=== PATIENT | female | born 1955 | race African-American/Black ===

== ENCOUNTER → 2016-07-21 | Outpatient (CLI) | payer OTHER | LOC: RAD 08:27 | PROVIDERS: ATTEND Physician Assistant | DX: R05 Cough (principal); J44.9 Chronic obstructive pulmonary disease, unspecified; R91.1 Solitary pulmonary nodule; M41.9 Scoliosis, unspecified | CPT/HCPCS: 71260; 82565 ==

== ENCOUNTER → 2016-10-14 | Outpatient (CLI) | payer OTHER ==
--- NOTE | 2016-10-15 12:03 | HISTORY AND PHYSICAL E ---
History and Physical NAME: AMELIA AUSTIN : 1955 AGE: 61Y ADMITTED: ROOM: REFERRING PHYSICIAN: Dr. Brennan. HISTORY OF PRESENT ILLNESS: The patient is known to me. I saw her June 2015, colonoscopy showing polyps in the distal transverse colon and external hemorrhoids. The patient did have the following: The patient had difficult to intubate sigmoid diverticulosis, 3 mm poly distal transverse colon. Cecum and transverse ascending are normal. The followup of the transverse colon came back adenoma polyp. At this time the patient follow up 1 year colonoscopy regarding sessile polyp transverse colon. REVIEW OF SYSTEMS: CARDIAC: Hypertension. ENDOCRINE: Negative. GASTROINTESTINAL: Polyps. FAMILY HISTORY: Father had CA prostate. Mom is alive. PHYSICAL EXAMINATION: VITAL SIGNS: Blood pressure 100/70, pulse 80, respirations 20, temperature is 98. HEAD, EYES, EARS, NOSE AND THROAT: Normal. ABDOMEN: Soft. NEUROLOGIC EXAM: Negative. MEDICATIONS: 1. Hydrochlorothiazide. 2. Vitamins. CONCLUSION: 1. Hypertension. 2. Colorectal polyps. 3. Difficult colonoscopy. IMPRESSION: 1. Colon screening. 2. History of adenoma polyps. PLAN: 1. Baseline potassium, consider potassium by mouth 2 days prior colonoscopy. The patient is on hydrochlorothiazide. 2. Follow up colonoscopy regarding colon polyps. DICTATING PHYSICIAN: JERO LOPEZ M.D. [id number] PHY#: [id number] ID: [id number] JOB#: [id number] ACCT: [id number] cc:JERO LOPEZ M.D., SWETANG M.D. >
== END ==
LOC: OD 14:42
PROVIDERS: ATTEND Specialist
DX: E87.6 Hypokalemia (principal)
CPT/HCPCS: 36415; 84132

== ENCOUNTER 2016-10-27 07:23 | Day surgery (SDC) | payer OTHER ==
[~2016-10-27 07:23] MED LIST: LIDOCAINE 2% JELLY 30 ML TUBE ONE; ONDANSETRON HCL INJ/PF 4 MG/2 ML SDV ONE
[2016-10-27] MEDS ORDERED: GLYCOPYRROLATE INJ 0.4 MG/2 ML VIAL ONE (07:24)
[2016-10-27] MEDS ORDERED: NALOXONE HCL INJ/PF 0.4 MG/1 ML SDV ONE (07:24)
[2016-10-27] MEDS ORDERED: FENTANYL CITRATE INJ/PF 100 MCG/2 ML AMPUL ONE (07:25)
[2016-10-27] MEDS ORDERED: FLUMAZENIL INJ 0.5 MG/5 ML VIAL IV ONE (07:25)
[2016-10-27] MEDS ORDERED: GLUCAGON,HUMAN RECOMB 1 MG INJ ONE (07:25)
[2016-10-27] MEDS ORDERED: EPINEPHRINE INJ 1 MG/10 ML DISP.SYRIN ONE (07:25)
[2016-10-27] MEDS: MIDAZOLAM 2 MG/2 ML INJ ONE ×2 (08:11→08:15)
[2016-10-27 09:44] VITALS: BP 146/89
--- NOTE | 2016-10-27 10:27 | HISTORY AND PHYSICAL E ---
History and Physical NAME: AMELIA AUSTIN : 1955 AGE: 61Y ADMITTED: 10/27/2016 ROOM: CHIEF COMPLAINT: Patient for colon screening. HISTORY: A 61-year-old female presented for colon screening. REVIEW OF SYSTEMS: Patient does have a history of asthma. She takes Advair. She has allergy. She takes Zyrtec. Blood pressure, hypertension, hydrochlorothiazide. She is on vitamin D. ALLERGIES: No known allergies. FAMILY HISTORY: Patient does have family history of polyps. SOCIAL HISTORY: Patient does not smoke, does not drink. PHYSICAL EXAMINATION: GENERAL: Pleasant, alert, oriented. VITAL SIGNS: Temp is 98, blood pressure 140/90, pulse 60, respirations 20. HEENT: Normal. ABDOMEN: Soft. NEUROLOGIC: Negative. EXTREMITIES: No edema. CONCLUSION: Colon screening. PLAN: Colonoscopy. DICTATING PHYSICIAN: JERO LOPEZ M.D. [id number] PHY#: [id number] ID: [id number] JOB#: [id number] ACCT: [id number] cc:[facility], JERO LOPEZ M.D. >
[2016-10-27 10:29] LABS: ABSOLUTE EOSINOPHILS # (AUTO) 0.1 10^3/uL (0.0-0.6); ABSOLUTE LYMPHOCYTES (AUTO) 1.6 10^3/uL (0.5-4.7); ABSOLUTE MONOCYTES (AUTO) 0.5 10^3/uL (0.1-1.4); ABSOLUTE NEUT (AUTO) 5.6 10^3/uL (1.7-8.2); BASOPHILS % (AUTO) 0.6 % (0-2); HEMOGLOBIN 12.3 g/dL (12.0-15.5); HGB HCT DIFFERENCE -1.1; LYMPHOCYTES % (AUTO) 20.4 % (13-45); MEAN CORPUSCULAR HEMOGLOBIN 30.6 pg (27.0-33.4); MEAN CORPUSCULAR HGB CONC 32.3 g/dL (32.0-36.0); MEAN CORPUSCULAR VOLUME 95 fl (80-97); RED BLOOD COUNT 4.01 10^6/uL (3.72-5.28); RED CELL DISTRIBUTION WIDTH 14.9 % (11.5-14.0); WHITE BLOOD COUNT 7.7 10^3/uL (4.0-10.5)
--- NOTE | 2016-10-27 10:34 | OPERATIVE REPORT E ---
Operative Report NAME: AMELIA AUSTIN : 1955 AGE: 61Y DATE OF SURGERY: 10/27/2016 ROOM: PREOPERATIVE DIAGNOSIS: Colon screening. POSTOPERATIVE DIAGNOSES: 1. Mild diverticulosis, sigmoid. 2. One isolated diverticulum in the cecum-ascending colon junction. 3. A 3-mm polyp in the mid ascending colon. PROCEDURE: Colonoscopy. SURGEON: JERO LOPEZ M.D. SEDATION/ANESTHESIA: The patient was given Versed 3 mg and Fentanyl 100 mcg. TISSUE REMOVED OR ALTERED: Biopsy, 3-mm polyp, mid ascending colon. NOTE: Colonoscopy today was difficult. At the beginning there was difficulty intubating the sigmoid colon. The patient has a sharp curve between her rectum and sigmoid junction, difficult. With assistance from nurses with manipulation, we were able to intubate the sigmoid with some difficulties. PROCEDURE: Rectal exam normal. Rectosigmoid sharp curve sigmoid-descending junction, difficult to intubate and successful after 2-3 trials. Descending colon shows occasional diverticulosis. Transverse colon normal. Ascending colon shows a 3-mm polyp, biopsy obtained. The cecum-ascending colon shows large diverticulum, 1 isolated diverticulum, cecum-ascending colon junction. Scope withdrawn cecum, ascending. Again, 1 diverticulum isolated of about 1 cm in size, cecum-ascending junction, 3-mm polyp removed by biopsy. Transverse colon normal. Descending colon normal. Sigmoid mild diverticulosis. Rectum normal. PLAN: 1. Awaiting biopsy results. 2. Full liquid diet today. 3. Baseline CBC and CEA. 4. Patient needs follow-up colonoscopy after 1 year for further evaluation of her ascending colon. She needs to be done in the OR with deep sedation. Please pay attention to the difficult intubation of rectosigmoid junction. DICTATING PHYSICIAN: JERO LOPEZ M.D. [id number] PHY#: [id number] ID: [id number] JOB#: [id number] ACCT: [id number] cc:[facility], JERO LOPEZ M.D. >
--- NOTE | 2016-10-27 10:34 | DISCHARGE SUMMARY E ---
Discharge Summary NAME: AMELIA AUSTIN : 1955 AGE: 61Y ADMITTED: 10/27/2016 DISCHARGED: 10/27/2016 FINAL DIAGNOSES: 1. A 3-mm polyp at ascending colon. 2. Isolated diverticulum, cecum-ascending junction. 3. Difficult colonoscopy intubation in the rectosigmoid-sigmoid descending junction. RECOMMENDATIONS/DISCHARGE PLAN: 1. Full liquids. 2. Baseline CBC and CEA. 3. Hold aspirin and nonsteroidals for 5 days. 4. Awaiting biopsy results. 5. Consider follow-up colonoscopy in 1 year in the OR with anesthesia standby, difficult rectosigmoid intubation. DICTATING PHYSICIAN: JERO LOPEZ M.D. [id number] PHY#: [id number] ID: [id number] JOB#: [id number] ACCT: [id number] cc:JERO LOPEZ M.D. >
[2016-10-27 10:45] LABS: ALANINE AMINOTRANSFERASE 28 U/L (9-52); ALKALINE PHOSPHATASE 79 U/L (38-126); ANION GAP 14 (5-19); ASPARTATE AMINO TRANSFERASE 20 U/L (14-36); BILIRUBIN,DIRECT 0.2 mg/dL (0.0-0.4); BILIRUBIN,TOTAL 1.1 mg/dL (0.2-1.3); BLOOD UREA NITROGEN 8 mg/dL (7-20); CALCIUM 9.4 mg/dL (8.4-10.2); CARBON DIOXIDE 24 mmol/L (22-30); CHLORIDE 102 mmol/L (98-107); CREATININE RESULT 0.74 mg/dL (0.52-1.25); GLUCOSE 154 mg/dL (75-110); POTASSIUM 3.7 mmol/L (3.6-5.0); SODIUM 140.4 mmol/L (137-145); TOTAL PROTEIN 7.1 g/dL (6.3-8.2)
[2016-10-27 11:15] LABS: CARCINOEMBRYONIC ANTIGEN 2.9 ng/mL (<3.0)
== END 2016-10-27 09:55 | disposition home or self-care (01) ==
LOC: END 07:23
PROVIDERS: ATTEND Specialist
PROC: 0DBK8ZX Excision of Ascending Colon, Via Natural or Artificial Opening Endoscopic, Diagnostic (ICD-10-PCS; principal; 2016-10-27 08:00)
DX: Z12.11 Encounter for screening for malignant neoplasm of colon (principal); D12.2 Benign neoplasm of ascending colon; K57.30 Diverticulosis of large intestine without perforation or abscess without bleeding; J45.909 Unspecified asthma, uncomplicated; I10 Essential (primary) hypertension; Z79.899 Other long term (current) drug therapy; Z79.51 Long term (current) use of inhaled steroids
CPT/HCPCS: 45380; 36415; 82378; 85025; 80053; 88305 ×2; J2250; J3010; J1610; J0171; J2310; J2405; J3490

== ENCOUNTER → 2017-08-03 | Outpatient (CLI) | payer OTHER ==
--- NOTE | 2017-08-03 14:46 | RADIOLOGY REPORT (SQ) ---
EXAM DESCRIPTION: CT CHEST WITH COMPLETED DATE/TIME: 08/03/2017 2:28 pm REASON FOR STUDY: R91.1 SOLITARY PULMONARY NODULE R10.30 LOWER ABDOMINAL PAIN, UNSPECIFIED R10.30 L OWER ABDOMINAL PAIN, UNSPECIFIED N95.0 POSTMENOPAUSAL BLEEDING R91.1 SOLITARY PULMONARY NODULE COMPARISON: July 2016 TECHNIQUE: CT scan of the chest performed using helical scanning technique with dynamic intravenous contrast injection. Images reviewed with lung, soft tissue and bone windows. Reconstructed coronal and sagittal MPR images reviewed. All images stored on PACS. All CT scanners at this facility use dose modulation, iterative reconstruction, and/or weight based d osing when appropriate to reduce radiation dose to as low as reasonably achievable (ALARA). [facility]: Dose Right [facility]: CareDose [facility]: Dose Right [facility]: Teradose 4D [facility]: [employer] CONTRAST TYPE AND DOSE: 54.3 mL Isovue 370 RENAL FUNCTION: Creatinine 0.8 RADIATION DOSE: . LIMITATIONS: None. FINDINGS: LUNGS AND PLEURA: The previously described 4 mm nodule in the right middle lobe appears st able. No other pulmonary nodules are identified. There is some minimal increased density in the lef t lower lobe which could represent atelectatic changes or minimal infiltrate. Remaining lung frye are clear. No pleural effusions are identified. The previously described emphysematous changes are again identified. HILAR AND MEDIASTINAL STRUCTURES: No identified masses or abnormal nodes. HEART AND VASCULAR STRUCTURES: No aneurysm or dissection. No central pulmonary emboli. No pericardi al effusion. HARDWARE: None in the chest. UPPER ABDOMEN: See results under abdominal CT scan THYROID AND OTHER SOFT TISSUES: No masses. No adenopathy. BONES: The previously described thoracolumbar scoliosis is again identified. OTHER: No other significant findings IMPRESSION: The previously described 4 mm nodule in right middle lobe appears stable. No other pulm onary nodules are identified. There is some minimal increased density in the left lower lobe which c ould represent atelectatic changes or minimal infiltrate. Remaining lung frye are clear. Other fi ndings as noted above TECHNICAL DOCUMENTATION: JOB ID: [id number] Quality ID # [id number]: Final reports with documentation of one or more dose reduction techniques (e.g., Au tomated exposure control, adjustment of the mA and/or kV according to patient size, use of iterative reconstruction technique) 2010 [employer]- All Rights Reserved Reading location - IP/workstation name: [email or web address]
--- NOTE | 2017-08-03 14:51 | RADIOLOGY REPORT (SQ) ---
EXAM DESCRIPTION: CT ABD/PELVIS WITH IV ONLY COMPLETED DATE/TIME: 08/03/2017 2:29 pm REASON FOR STUDY: R91.1 R10.30 LOWER ABDOMINAL PAIN, UNSPECIFIED N95.0 POSTMENOPAUSAL BLEEDING R91 .1 SOLITARY PULMONARY NODULE COMPARISON: None. TECHNIQUE: CT scan of the abdomen and pelvis performed using helical scanning technique with dynamic intravenous contrast injection. No oral contrast. Images reviewed with lung, soft tissue, and bone windows. Reconstructed coronal and sagittal MPR images reviewed. Delayed images for evaluation of the urinary system also acquired. All images stored on PACS. All CT scanners at this facility use dose modulation, iterative reconstruction, and/or weight based d osing when appropriate to reduce radiation dose to as low as reasonably achievable (ALARA). [facility]: Dose Right [facility]: CareDose [facility]: Dose Right [facility]: Teradose 4D [facility]: evly CONTRAST TYPE AND DOSE: contrast/concentration: Isovue 370.00 mg/ml; Total Contrast Delivered: 54.0 ml; Total Saline Delivered: 65.0 ml RENAL FUNCTION: Creatinine 0.8 RADIATION DOSE: CT Rad equipment meets quality standard of care and radiation dose reduction techniq ues were employed. CTDIvol: 4.4 - 4.5 mGy. DLP: 556 mGy-cm.. LIMITATIONS: None. FINDINGS: LOWER CHEST: See results under chest CT scan LIVER: Normal size. No masses. No dilated ducts. SPLEEN: Normal size. No focal lesions. PANCREAS: No masses. No significant calcifications. No adjacent inflammation or peripancreatic fluid collections. Pancreatic duct not dilated. GALLBLADDER: No identified stones by CT criteria. No inflammatory changes to suggest cholecystitis. ADRENAL GLANDS: No significant masses or asymmetry. RIGHT KIDNEY AND URETER: No solid masses. No significant calcifications. No hydronephrosis or hyd roureter. LEFT KIDNEY AND URETER: No solid masses. No significant calcifications. No hydronephrosis or hydr oureter. AORTA AND VESSELS: No aneurysm. No dissection. There is some ectasia of the abdominal aorta and patti c vessels with vascular calcifications. Renal arteries, SMA, celiac without stenosis. RETROPERITONEUM: No retroperitoneal adenopathy, hemorrhage or masses. BOWEL AND PERITONEAL CAVITY: No masses or inflammatory changes. No free fluid or peritoneal masses. A moderate amount of fecal material is identified throughout the colon APPENDIX: Normal. PELVIS: No mass. No free fluid. Normal bladder. ABDOMINAL WALL: No masses. No hernias. BONES: No significant or acute findings. OTHER: No other significant finding. IMPRESSION: NO SIGNIFICANT OR ACUTE FINDING IN THE ABDOMEN OR PELVIS ON CT SCAN WITH IV CONTRAST. TECHNICAL DOCUMENTATION: JOB ID: [id number] Quality ID # [id number]: Final reports with documentation of one or more dose reduction techniques (e.g., Au tomated exposure control, adjustment of the mA and/or kV according to patient size, use of iterative reconstruction technique) 2010 [employer]- All Rights Reserved Reading location - IP/workstation name: [facility]
== END ==
LOC: RAD 13:54
PROVIDERS: ATTEND Family Medicine
DX: R91.1 Solitary pulmonary nodule (principal); N95.0 Postmenopausal bleeding; R10.30 Lower abdominal pain, unspecified
CPT/HCPCS: 71260; 74177; 82565

== ENCOUNTER → 2017-08-09 | Outpatient (CLI) | payer OTHER ==
--- NOTE | 2017-08-09 09:33 | WOMENS IMAGING REPORT ---
EXAM DESCRIPTION: BILAT SCREENING MAMMO W/CAD COMPLETED DATE/TIME: 08/09/2017 9:21 am REASON FOR STUDY: SCREENING MAMMO Z12.31 ENCNTR SCREEN MAMMOGRAM FOR MALIGNANT NEOPLASM OF [place] COMPARISON: Multiple since 2009 TECHNIQUE: Standard craniocaudal and mediolateral oblique views of each breast recorded using digita l acquisition. LIMITATIONS: None. FINDINGS: Findings present which are benign by mammographic criteria. No suspicious masses, calcifi cations or architectural distortion. Pertinent benign findings: Benign bilateral breast parenchymal calcifications Read with the assistance of CAD. .[facility] Cenova Version 1.3 .[facility] - R2 Cenova Version 1.3 .[facility] - R2 Cenova Version 2.4 .[facility] - R2 Cenova Version 2.4 .[facility] - R2 Last Repairer Version 9.2 Benign mammographic findings may include one or more of the following: Smooth masses, popcorn/rim/co arse calcifications, asymmetries, post-procedure changes, and lesions with long-standing stability. IMPRESSION: BENIGN MAMMOGRAPHIC FINDINGS. BIRADS 2 BREAST DENSITY: b. There are scattered areas of fibroglandular density. BIRAD: 2 BENIGN FINDING(S) RECOMMENDATION: ROUTINE SCREENING Please continue yearly bilateral screening mammography/tomosynthesis in July 2018 COMMENT: The patient has been notified of the results by letter per [place] requirements. Additional no tification policies are in place for contacting patient with suspicious or incomplete findings. Quality ID #[id number]: The [employer] recommends an annual screening mammogram for women aged 40 years or over. This facility utilizes a reminder system to ensure that all patients receive reminder letters, and/or direct phone calls for appointments. This includes reminders for routine scr eening mammograms, diagnostic mammograms, or other Breast Imaging Interventions when appropriate. Th is patient will be placed in the appropriate reminder system. The [employer] (ACR) has developed recommendations for screening MRI of the breast s in certain patient populations, to be used in conjunction with mammography. Breast MRI surveillanc e may be appropriate for women with more than 20% lifetime risk of developing breast cancer as deter mined by genetic testing, significant family history of the disease, or history of mantle radiation f or Hodgkins Disease. ACR Practice Guidelines 2008. TECHNICAL DOCUMENTATION: FINDING NUMBER: (1) ASSESSMENT: (1) JOB ID: [id number] [employer] All Rights Reserved Reading location - IP/workstation name: [facility] [email or web address]
== END ==
LOC: WI 08:56
PROVIDERS: ATTEND Family Medicine
DX: Z12.31 Encounter for screening mammogram for malignant neoplasm of breast (principal)
CPT/HCPCS: 77067

== ENCOUNTER 2018-04-21 14:44 | Inpatient (IN) | payer OTHER ==
[2018-04-21] MEDS ORDERED: IPRATROPIUM/ALBUTEROL 0.5-2.5 MG/3 ML AMPUL NEB ONE ×2 (15:01→20:31)
[2018-04-21] MEDS ORDERED: METHYLPREDNISOLONE INJ 125 MG/2 ML SDV IV ONE ×2 (15:01)
--- NOTE | 2018-04-21 15:04 | ER Document Report ---
ED Medical Screen (RME) - General Chief Complaint: Breathing Difficulty Stated Complaint: DIFFICULTY BREATHING Time Seen by Provider: 04/21/18 15:01 Mode of Arrival: Ambulatory Information source: Patient Notes: 63 years old female with a history of smoking still smoking COPD on oxygen presents today with increased cough with yellow sputum and increased difficulty in breathing. Therefore present to the ED. No fever chills or other constitutional symptoms. On examination diffuse expiratory wheezing throughout the lung field. Appeared to be in shortness of breath. TRAVEL OUTSIDE OF THE [place] IN LAST 30 DAYS: No - Related Data Allergies/Adverse Reactions: No Known Allergies Allergy (Verified 04/21/18 14:46) Past Medical History - Past Medical History Cardiac Medical History: Reports: Hx Hypertension Denies: Hx Coronary Artery Disease, Hx Heart Attack Pulmonary Medical History: Reports: Hx COPD Denies: Hx Asthma, Hx Bronchitis, Hx Pneumonia Neurological Medical History: Denies: Hx Cerebrovascular Accident, Hx Seizures Musculoskeltal Medical History: Denies Hx Arthritis Past Surgical History: Denies: Hx Hysterectomy - Immunizations Hx Diphtheria, Pertussis, Tetanus Vaccination: No Physical Exam - Vital signs Vitals: Temp Pulse Resp BP Pulse Ox 98.2 F 111 H 24 H 175/114 H 87 L 04/21/18 14:49 04/21/18 14:49 04/21/18 14:49 04/21/18 14:49 04/21/18 14:49 Course - Vital Signs Vital signs: Temp Pulse Resp BP Pulse Ox 98.2 F 111 H 24 H 175/114 H 87 L 04/21/18 14:49 04/21/18 14:49 04/21/18 14:49 04/21/18 14:49 04/21/18 14:49 Doctor's Discharge - Discharge Referrals: LAYNE CAIN MD [Primary Care Provider] - Follow up as needed
[2018-04-21] MEDS: ALBUTEROL SULFATE 0.083% NEB 2.5 MG/3 ML AMPUL NEB SCH ×2 (15:21→15:30)
[2018-04-21] MEDS: MAGNESIUM SULFATE/D5W 1 GM/100 ML RTUPB IV SCH ×2 (15:29→15:54)
--- NOTE | 2018-04-21 15:43 | ER Document Report ---
ED Respiratory Problem - General Chief Complaint: Breathing Difficulty Stated Complaint: DIFFICULTY BREATHING Time Seen by Provider: 04/21/18 15:01 Mode of Arrival: Ambulatory Information source: Patient TRAVEL OUTSIDE OF THE [place] IN LAST 30 DAYS: No - HPI Patient complains to provider of: COPD, Cough, Short of breath Onset: Other - 3 days Duration: Worse/persistent Quality of pain: Achy Severity: Mild Pain Level: 1 Context: Hx COPD, Smoker Short of Breath: Moderate Chest pain/discomfort: Tightness Cough: Productive Sputum amount: Small Sputum color: Yellow Sputum consistency: Mucoid Associated symptoms: Congestion, Cough, Short of breath, Wheezing Similar symptoms previously: Yes Recently seen / treated by doctor: No Notes: Patient is a 63-year-old female presenting to the emergency room complaining of 3-day history of worsening shortness of breath with productive cough and wheezing, patient is a smoker with a history of COPD, she denies any fever, no chest pain, her chest does hurt when she coughs sometimes, she denies any lower extremity swelling, history of similar symptoms in the past - Related Data Allergies/Adverse Reactions: No Known Allergies Allergy (Verified 04/21/18 14:46) Past Medical History - General Information source: Patient - Social History Smoking Status: Current Every Day Smoker Chew tobacco use (# tins/day): No Frequency of alcohol use: None Drug Abuse: None Family History: Reviewed & Not Pertinent Patient has suicidal ideation: No Patient has homicidal ideation: No - Past Medical History Cardiac Medical History: Reports: Hx Hypertension Denies: Hx Coronary Artery Disease, Hx Heart Attack Pulmonary Medical History: Reports: Hx COPD Denies: Hx Asthma, Hx Bronchitis, Hx Pneumonia Neurological Medical History: Denies: Hx Cerebrovascular Accident, Hx Seizures Renal/ Medical History: Denies: Hx Peritoneal Dialysis GI Medical History: Reports: Hx Gastroesophageal Reflux Disease Musculoskeletal Medical History: Denies Hx Arthritis Past Surgical History: Reports: Hx Gynecologic Surgery, Hx Tubal Ligation. Denies: Hx Hysterectomy - Immunizations Hx Diphtheria, Pertussis, Tetanus Vaccination: No Review of Systems - Review of Systems Constitutional: No symptoms reported EENT: No symptoms reported Cardiovascular: No symptoms reported Respiratory: See HPI Gastrointestinal: No symptoms reported Genitourinary: No symptoms reported Female Genitourinary: No symptoms reported Musculoskeletal: No symptoms reported Skin: No symptoms reported Hematologic/Lymphatic: No symptoms reported Neurological/Psychological: No symptoms reported -: Yes All other systems reviewed and negative Physical Exam - Vital signs Vitals: Temp Pulse Resp BP Pulse Ox 98.2 F 111 H 24 H 175/114 H 87 L 04/21/18 14:49 04/21/18 14:49 04/21/18 14:49 04/21/18 14:49 04/21/18 14:49 Interpretation: Hypertensive, Tachycardic, Hypoxic, Tachypneic - General General appearance: Alert In distress: Moderate - HEENT Head: Normocephalic, Atraumatic Eyes: Normal Pupils: PERRL - Respiratory Respiratory status: Tachypnea Chest status: Tender Breath sounds: Productive cough, Rhonchi, Wheezing Chest palpation: Normal - Cardiovascular Rhythm: Regular, Tachycardia - Abdominal Inspection: Normal Distension: No distension Bowel sounds: Normal Tenderness: Nontender Organomegaly: No organomegaly - Back Back: Normal, Nontender - Extremities General upper extremity: Normal inspection, Nontender, Normal color, Normal ROM , Normal temperature General lower extremity: Normal inspection, Nontender, Normal color, Normal ROM , Normal temperature, Normal weight bearing. No: Jose's sign - Neurological Neuro grossly intact: Yes Cognition: Normal Orientation: AAOx4 David Coma Scale Eye Opening: Spontaneous David Coma Scale Verbal: Oriented [place] Coma Scale Motor: Obeys Commands David Coma Scale Total: 15 Speech: Normal Motor strength normal: LUE, RUE, LLE, RLE Sensory: Normal - Psychological Associated symptoms: Normal affect, Normal mood - Skin Skin Temperature: Warm Skin Moisture: Dry Skin Color: Normal Course - Re-evaluation Re-evalutation: 04/21/18 16:56 Patient resting comfortably, reports feeling much better, vital signs are stable , lungs are clear to auscultation, we will attempt to ambulate patient with pulse ox, if she tolerates this well without any evidence of hypoxia we will likely discharge home with instructions for follow-up 04/21/18 18:25 Patient ambulated approximately 20 steps and became hypoxic at 87% and also acutely short of breath, plan to admit for COPD exacerbation patient discussed with Dr. Kaur who is covering for Dr. Brennan, agrees with admission for COPD exacerbation - Vital Signs Vital signs: Temp Pulse Resp BP Pulse Ox 98.4 F 94 20 149/98 H 99 04/21/18 21:42 04/21/18 21:48 04/21/18 21:42 04/21/18 21:42 04/21/18 21:42 - Laboratory Result Diagrams: 04/21/18 15:20 04/21/18 15:20 Laboratory results interpreted by me: 04/21/18 04/21/18 04/21/18 15:20 15:20 15:30 RDW 14.8 H Seg Neutrophils % 78.4 H ABG HCO3 25.1 H ABG Total CO2 26.4 H Calcium 10.4 H Total Bilirubin 1.5 H Direct Bilirubin 0.5 H Total Protein 8.7 H Albumin 5.1 H - Diagnostic Test Radiology reviewed: Image reviewed, Reports reviewed Critical Care Note - Critical Care Note Total time excluding time spent on procedures (mins): 30 Comments: Patient arrived tachycardic, with severe hypertension and hypoxia, admitted for COPD exacerbation, required multiple breathing treatments and interventions in the emergency department Discharge - Discharge Clinical Impression: COPD exacerbation Condition: Fair Disposition: ADMITTED INPATIENT Admitting Provider: Brennan Unit Admitted: Telemetry
[2018-04-21 15:49] LABS: ARTERIAL BLOOD BASE EXCESS 0.1 mmol/L; ARTERIAL BLOOD FIO2 4L; ARTERIAL BLOOD H2CO3 1.26 mmol/L (1.05-1.35); ARTERIAL BLOOD HCO3 25.1 mmol/L (20-24); ARTERIAL BLOOD O2 SATURATION 96.7 % (94-98); ARTERIAL BLOOD PCO2 41.8 mmHg (35-45); ARTERIAL BLOOD PO2 88.1 mmHg (80-100); ARTERIAL BLOOD TOTAL CO2 26.4 mmol/L (21-25)
[2018-04-21 15:52] LABS: ABSOLUTE BASOPHILS # (AUTO) 0.1 10^3/uL (0.0-0.2); ABSOLUTE EOSINOPHILS # (AUTO) 0.1 10^3/uL (0.0-0.6); ABSOLUTE LYMPHOCYTES (AUTO) 1.1 10^3/uL (0.5-4.7); ABSOLUTE MONOCYTES (AUTO) 0.5 10^3/uL (0.1-1.4); ABSOLUTE NEUT (AUTO) 6.4 10^3/uL (1.7-8.2); BASOPHILS % (AUTO) 1.1 % (0-2); EOSINOPHILS % (AUTO) 1.4 % (0-6); HEMATOCRIT 41.3 % (36.0-47.0); HEMOGLOBIN 14.2 g/dL (12.0-15.5); LYMPHOCYTES % (AUTO) 13.1 % (13-45); MEAN CORPUSCULAR HEMOGLOBIN 31.5 pg (27.0-33.4); MEAN CORPUSCULAR HGB CONC 34.4 g/dL (32.0-36.0); MEAN CORPUSCULAR VOLUME 92 fl (80-97); PLATELET COUNT 281 10^3/uL (150-450); RED CELL DISTRIBUTION WIDTH 14.8 % (11.5-14.0); SEGMENTED NEUTROPHILS % (AUTO) 78.4 % (42-78); TOTAL CELLS COUNTED % (AUTO) 100 %; WHITE BLOOD COUNT 8.2 10^3/uL (4.0-10.5)
[2018-04-21 16:00] LABS: ALANINE AMINOTRANSFERASE 12 U/L (9-52); ALBUMIN 5.1 g/dL (3.5-5.0); ALKALINE PHOSPHATASE 114 U/L (38-126); ANION GAP 15 (5-19); ASPARTATE AMINO TRANSFERASE 28 U/L (14-36); BILIRUBIN,DIRECT 0.5 mg/dL (0.0-0.4); BILIRUBIN,TOTAL 1.5 mg/dL (0.2-1.3); BLOOD UREA NITROGEN 11 mg/dL (7-20); CALCIUM 10.4 mg/dL (8.4-10.2); CARBON DIOXIDE 26 mmol/L (22-30); CHLORIDE 103 mmol/L (98-107); GLUCOSE 102 mg/dL (75-110); POTASSIUM 4.2 mmol/L (3.6-5.0); SODIUM 144.1 mmol/L (137-145); TOTAL PROTEIN 8.7 g/dL (6.3-8.2)
--- NOTE | 2018-04-21 16:04 | RADIOLOGY REPORT (SQ) ---
EXAM DESCRIPTION: CHEST SINGLE VIEW COMPLETED DATE/TIME: 04/21/2018 3:52 pm REASON FOR STUDY: COUGH COMPARISON: 05/04/2016 EXAM PARAMETERS: NUMBER OF VIEWS: One view. TECHNIQUE: Single frontal radiographic view of the chest acquired. RADIATION DOSE: NA LIMITATIONS: None. FINDINGS: LUNGS AND PLEURA: There is stable hyperexpansion. No consolidation or effusions. MEDIASTINUM AND HILAR STRUCTURES: No masses. Contour normal. HEART AND VASCULAR STRUCTURES: Heart normal in size. Normal vasculature. BONES: There stable thoracic scoliosis with concavity toward the left. HARDWARE: None in the chest. OTHER: No other significant finding. IMPRESSION: COPD. No acute findings in the chest. TECHNICAL DOCUMENTATION: JOB ID: [id number] [employer]- All Rights Reserved Reading location - IP/workstation name: [email or web address]
[2018-04-21] MEDS ORDERED: ALBUTEROL SULFATE 0.083% NEB 2.5 MG/3 ML AMPUL NEB ONE (18:24)
[2018-04-21] MEDS ORDERED: (PENDING PHARMACY ID) (Cholecalciferol (Vitamin D3) [Vitamin D3] 1,000 UNIT) PO SCH (20:00)
[2018-04-21] MEDS ORDERED: CETIRIZINE 10 MG TABLET PO SCH (20:00)
[2018-04-21] MEDS ORDERED: FLUTICASONE/SALMETEROL DISKUS 100-50 MCG/DOSE IH SCH (20:00)
[2018-04-21] MEDS ORDERED: (PENDING PHARMACY ID) (Omeprazole [Omeprazole] 1 TAB) PO SCH (20:00)
[2018-04-21] MEDS: IPRATROPIUM/ALBUTEROL 0.5-2.5 MG/3 ML AMPUL NEB PRN (20:31)
[2018-04-21 20:32] LABS: INTERNATIONAL RATION (INR) 1.01; PARTIAL THROMBOPLASTIN TIME 33.1 SEC (23.5-35.8); PROTHROMBIN TIME 13.8 SEC (11.4-15.4)
[2018-04-21 20:47] LABS: LIPASE 23.6 U/L (23-300); PHOSPHORUS 4.1 mg/dL (2.5-4.5)
[2018-04-21] MEDS: NORMAL SALINE 1000 ML 1,000 ML IV PRN ×2 (20:53→22:03)
[2018-04-21] MEDS: BENZONATATE 100 MG CAPSULE PO SCH (20:55)
[2018-04-21 21:04] LABS: FREE T4 (FREE THYROXINE) 1.54 ng/dL (0.78-2.19)
[2018-04-21 21:09] LABS: TROPONIN I < 0.012 ng/mL
[2018-04-21 21:18] LABS: THYROID STIMULATING HORMONE 0.35 uIU/mL (0.47-4.68)
[2018-04-21 21:22] LABS: APPEARANCE,URINE CLEAR; BILIRUBIN,URINE NEGATIVE (NEGATIVE); COLOR,URINE YELLOW; GLUCOSE, URINE NEGATIVE (NEGATIVE); KETONES,URINE NEGATIVE (NEGATIVE); LEUKOCYTE ESTERASE,URINE NEGATIVE (NEGATIVE); NITRITE,URINE NEGATIVE (NEGATIVE); PROTEIN,URINE 30 mg/dL (NEGATIVE); URINE SPECIFIC GRAVITY 1.012; UROBILINOGEN,URINE NEGATIVE mg/dL (<2.0)
[2018-04-21 21:25] LABS: URINE AMPHETAMINES SCREEN NEGATIVE; URINE BARBITURATES SCREEN NEGATIVE; URINE BENZODIAZEPINES SCREEN NEGATIVE; URINE COCAINE SCREEN NEGATIVE; URINE MARIJUANA (THC) SCREEN UNCONFIRMED POSITIVE; URINE METHADONE SCREEN NEGATIVE; URINE PHENCYCLIDINE SCREEN NEGATIVE
[2018-04-21] MEDS: METHYLPREDNISOLONE INJ 125 MG/2 ML SDV IV SCH (22:05)
[2018-04-21] MEDS: ENOXAPARIN SODIUM INJ 40 MG/0.4 ML DISP.SYRIN SUBCUT SCH (22:09)
[2018-04-21] MEDS: CHOLECALCIFEROL (D3) 1,000 UNIT TABLET PO SCH (22:09)
[2018-04-22] MEDS: IPRATROPIUM/ALBUTEROL 0.5-2.5 MG/3 ML AMPUL NEB PRN ×6 (00:31→20:57)
[2018-04-22 02:22] LABS: ABSOLUTE LYMPHOCYTES (AUTO) 0.3 10^3/uL (0.5-4.7); ABSOLUTE NEUT (AUTO) 5.7 10^3/uL (1.7-8.2); BASOPHILS % (AUTO) 0.5 % (0-2); HEMATOCRIT 38.5 % (36.0-47.0); HEMOGLOBIN 13.2 g/dL (12.0-15.5); LYMPHOCYTES % (AUTO) 5.4 % (13-45); MEAN CORPUSCULAR HEMOGLOBIN 31.5 pg (27.0-33.4); MEAN CORPUSCULAR HGB CONC 34.4 g/dL (32.0-36.0); MEAN CORPUSCULAR VOLUME 92 fl (80-97); MONOCYTES % (AUTO) 0.8 % (3-13); PLATELET COUNT 272 10^3/uL (150-450); RED CELL DISTRIBUTION WIDTH 14.9 % (11.5-14.0); SEGMENTED NEUTROPHILS % (AUTO) 93.3 % (42-78); TOTAL CELLS COUNTED % (AUTO) 100 %; WHITE BLOOD COUNT 6.1 10^3/uL (4.0-10.5)
[2018-04-22 02:40] LABS: ALANINE AMINOTRANSFERASE 12 U/L (9-52); ALBUMIN 4.9 g/dL (3.5-5.0); ALKALINE PHOSPHATASE 100 U/L (38-126); ANION GAP 15 (5-19); ASPARTATE AMINO TRANSFERASE 23 U/L (14-36); BILIRUBIN,DIRECT 0.3 mg/dL (0.0-0.4); BLOOD UREA NITROGEN 12 mg/dL (7-20); CALCIUM 10.3 mg/dL (8.4-10.2); CARBON DIOXIDE 26 mmol/L (22-30); CHLORIDE 102 mmol/L (98-107); CHOLESTEROL 222.38 mg/dL (0-200); GLUCOSE 192 mg/dL (75-110); POTASSIUM 4.1 mmol/L (3.6-5.0); TOTAL PROTEIN 8.2 g/dL (6.3-8.2); TRIGLYCERIDES 47 mg/dL (<150)
[2018-04-22 02:52] LABS: DIRECT LDL 122 mg/dL (<100)
[2018-04-22 02:53] LABS: CREATINE KINASE MB 1.36 ng/mL (<4.55)
[2018-04-22 02:56] LABS: TROPONIN I < 0.012 ng/mL
[2018-04-22] MEDS: METHYLPREDNISOLONE INJ 125 MG/2 ML SDV IV SCH ×3 (06:09→23:04)
[2018-04-22] MEDS: LANSOPRAZOLE 30 MG TAB.RAP.DR PO SCH ×2 (06:10→18:24)
[2018-04-22] MEDS: CHOLECALCIFEROL (D3) 1,000 UNIT TABLET PO SCH (09:13)
[2018-04-22] MEDS: HYDROCHLOROTHIAZIDE 25 MG TABLET PO SCH (09:13)
[2018-04-22] MEDS: ENOXAPARIN SODIUM INJ 40 MG/0.4 ML DISP.SYRIN SUBCUT SCH (09:13)
[2018-04-22] MEDS: BENZONATATE 100 MG CAPSULE PO SCH ×3 (09:13→18:21)
[2018-04-22 09:44] LABS: CREATINE KINASE MB 1.65 ng/mL (<4.55)
[2018-04-22 09:52] LABS: TROPONIN I < 0.012 ng/mL
[2018-04-22] MEDS: GUAIFENESIN SYRP 200 MG/10 ML UDC PO PRN ×2 (11:13→16:32)
[2018-04-22] MEDS: NORMAL SALINE 1000 ML 1,000 ML IV PRN (13:29)
[2018-04-22] MEDS ORDERED: BENZONATATE 100 MG CAPSULE PO PRN (13:52)
[2018-04-22] MEDS ORDERED: CHOLECALCIFEROL (D3) 1,000 UNIT TABLET PO SCH (14:00)
[2018-04-22] MEDS ORDERED: (PENDING PHARMACY ID) (Umeclidinium Brm/Vilanterol Tr [Anoro Ellipta 62.5-25 Mcg Inh] 1 PU IH SCH (14:00)
--- NOTE | 2018-04-22 14:03 | PDOC H&P ---
History of Present Illness Admission Date/PCP: 04/21/18 18:31 LAYNE CAIN MD History of Present Illness: AMELIA AUSTIN is a 63 year old female, she has a history of chronic obstructive lung disease, she came to the emergency room for evaluation of shortness of breath for the last 3 days, she was wheezing there was cough, active smoker. Chest x-ray was done, it did not show any acute infiltrate,it was consistent with COPD. The urine drug screen was positive for marijuana. In the emergency room she was evaluated when she ambulated she had low oxygen saturation, the ER physician want her admitted for management Past Medical History Cardiac Medical History: Reports: Hypertension Pulmonary Medical History: Reports: Chronic Obstructive Pulmonary Disease (COPD) GI Medical History: Reports: Gastroesophageal Reflux Disease Past Surgical History Past Surgical History: Reports: Tubal Ligation Social History Smoking Status: Current Every Day Smoker Cigarettes Packs Per Day: 1 - Advance Directive Resuscitation Status: Full Code Family History Family History: Reviewed & Not Pertinent Parental Family History Reviewed: Yes Children Family History Reviewed: Yes Sibling(s) Family History Reviewed.: Yes Medication/Allergy Home Medications: Albuterol Sulfate [Proair HFA Inhalation Aerosol 8.5 gm MDI] 2 puff IH Q6HP PRN 04/21/18 Benzonatate [Tessalon Perle 100 mg Capsule] 100 mg PO TIDP PRN 04/21/18 Cholecalciferol (Vitamin D3) [Vitamin D3 1000 Unit Tablet] 1,000 unit PO DAILY 04/21/18 Hydrochlorothiazide [Hydrodiuril 25 mg Tablet] 25 mg PO DAILY 04/21/18 Omeprazole 40 mg PO DAILY 04/21/18 Umeclidinium Brm/Vilanterol Tr [Anoro Ellipta 62.5-25 Mcg INH] 1 puff IH QAM Allergies/Adverse Reactions: No Known Allergies Allergy (Verified 04/21/18 14:46) Review of Systems Constitutional: ABSENT: chills, fever(s), headache(s), weight gain, weight loss Eyes: ABSENT: visual disturbances Ears: ABSENT: hearing changes Cardiovascular: ABSENT: chest pain, dyspnea on exertion, edema, orthropnea, palpitations Respiratory: PRESENT: cough, dyspnea Gastrointestinal: ABSENT: abdominal pain, constipation, diarrhea, hematemesis, hematochezia, nausea, vomiting Genitourinary: ABSENT: dysuria, hematuria Musculoskeletal: ABSENT: joint swelling Integumentary: ABSENT: rash, wounds Neurological: ABSENT: abnormal gait, abnormal speech, confusion, dizziness, focal weakness, syncope Psychiatric: ABSENT: anxiety, depression, homidical ideation, suicidal ideation Endocrine: ABSENT: cold intolerance, heat intolerance, menstrual abnormalities, polydipsia, polyuria Hematologic/Lymphatic: ABSENT: easy bleeding, easy bruising, lymphadenopathy Physical Exam Vital Signs: Temp Pulse Resp BP Pulse Ox 98.7 F 84 18 140/79 H 99 04/22/18 11:06 04/22/18 11:06 04/22/18 11:06 04/22/18 11:06 04/22/18 11:06 Intake & Output 04/21/18 04/22/18 04/23/18 06:59 06:59 06:59 Intake Total 396 1474 Output Total 250 650 Balance 146 824 Weight 45.7 kg General appearance: PRESENT: no acute distress Head exam: PRESENT: atraumatic, normocephalic Eye exam: PRESENT: conjunctiva pink, EOMI, PERRLA Ear exam: PRESENT: normal external ear exam Mouth exam: PRESENT: moist, tongue midline Neck exam: PRESENT: full ROM Respiratory exam: PRESENT: wheezes, other - Deformity of the chest wall Cardiovascular exam: PRESENT: +S1, +S2 Vascular exam: PRESENT: normal capillary refill GI/Abdominal exam: PRESENT: normal bowel sounds, soft Rectal exam: PRESENT: deferred Neurological exam: PRESENT: alert, CN II-XII grossly intact. ABSENT: motor sensory deficit Psychiatric exam: PRESENT: appropriate affect, normal mood Skin exam: PRESENT: dry, intact, warm Results Laboratory Results: 04/22/18 02:09 04/22/18 02:09 04/21/18 04/21/18 04/21/18 20:10 20:10 20:10 WBC RBC Hgb Hct MCV MCH MCHC RDW Plt Count Seg Neutrophils % Lymphocytes % Monocytes % Eosinophils % Basophils % Absolute Neutrophils Absolute Lymphocytes Absolute Monocytes Absolute Eosinophils Absolute Basophils Sodium Potassium Chloride Carbon Dioxide Anion Gap BUN Creatinine Est GFR ( Amer) Est GFR (Non-Af Amer) Glucose Calcium Phosphorus 4.1 Magnesium 2.5 H Total Bilirubin AST ALT Alkaline Phosphatase Ammonia < 8.7 L Total Protein Albumin Triglycerides Cholesterol LDL Cholesterol Direct VLDL Cholesterol HDL Cholesterol Amylase 69 Lipase 23.6 TSH 0.35 L Free T4 1.54 Urine Color Urine Appearance Urine pH Ur Specific [place] Urine Protein Urine Glucose (UA) Urine Ketones Urine Blood Urine Nitrite Ur Leukocyte Esterase Urine WBC (Auto) Urine RBC (Auto) 04/21/18 04/22/18 04/22/18 20:49 02:09 02:09 WBC 6.1 RBC 4.20 Hgb 13.2 Hct 38.5 MCV 92 MCH 31.5 MCHC 34.4 RDW 14.9 H Plt Count 272 Seg Neutrophils % 93.3 H Lymphocytes % 5.4 L Monocytes % 0.8 L Eosinophils % 0.0 Basophils % 0.5 Absolute Neutrophils 5.7 Absolute Lymphocytes 0.3 L Absolute Monocytes 0.0 L Absolute Eosinophils 0.0 Absolute Basophils 0.0 Sodium 143.0 Potassium 4.1 Chloride 102 Carbon Dioxide 26 Anion Gap 15 BUN 12 Creatinine 0.66 Est GFR ( Amer) > 60 Est GFR (Non-Af Amer) > 60 Glucose 192 H Calcium 10.3 H Phosphorus Magnesium Total Bilirubin 1.0 AST 23 ALT 12 Alkaline Phosphatase 100 Ammonia Total Protein 8.2 Albumin 4.9 Triglycerides 47 Cholesterol 222.38 H LDL Cholesterol Direct 122 H VLDL Cholesterol 9.0 L HDL Cholesterol 90 Amylase Lipase TSH Free T4 Urine Color YELLOW Urine Appearance CLEAR Urine pH 5.0 Ur Specific War[place] 1.012 Urine Protein 30 H Urine Glucose (UA) NEGATIVE Urine Ketones NEGATIVE Urine Blood MODERATE H Urine Nitrite NEGATIVE Ur Leukocyte Esterase NEGATIVE Urine WBC (Auto) 0 Urine RBC (Auto) 2 04/21/18 04/21/18 04/22/18 20:10 20:10 02:09 Creatine Kinase 91 119 CK-MB (CK-2) 0.90 Troponin I < 0.012 04/22/18 04/22/18 04/22/18 02:09 08:41 08:41 Creatine Kinase 155 H CK-MB (CK-2) 1.36 1.65 Troponin I < 0.012 < 0.012 Assessment & Plan - Diagnosis (1) Acute exacerbation of chronic obstructive pulmonary disease (COPD) Is this a current diagnosis for this admission?: Yes Plan: Patient admitted for management
[2018-04-22] MEDS ORDERED: ACETAMINOPHEN 325 MG TABLET PO PRN (16:58)
[2018-04-22] MEDS: VARENICLINE TARTRATE 0.5 MG TABLET PO SCH (18:22)
--- NOTE | 2018-04-22 21:12 | RADIOLOGY REPORT (SQ) ---
EXAM DESCRIPTION: CT CHEST WITH IV CONTRAST COMPLETED DATE/TME: 04/22/2018 00:00 CLINICAL HISTORY: 63 years, Female, SOB, R/O CANCER This exam was performed according to our departmental dose-optimization program which includes automated exposure control, adjustment of the mA and/or kVp according to patient size and/or use of iterative reconstruction technique where applicable. Compared to CT chest dated 07/21/2016. FINDINGS: Aorta is mildly calcified without aneurysm. No significant mediastinal, hilar or axillary lymphadenopathy. No pleural or pericardial effusions. Visualized upper abdominal organs are unremarkable. Evaluation of the lung parenchyma demonstrates trachea and major airways to be patent. Marked diffuse emphysematous changes with hyperinflation of the lungs. No consolidations to suggest pneumonia. There is a 1.1 x 0.9 cm rounded soft tissue nodule in the left lower lobe which is new from the prior study. IMPRESSION: Left lower lobe new 1.1 cm soft tissue nodule. Recommend follow-up PET imaging or CT-guided biopsy. No acute finding to suggest pneumonia.
[2018-04-23] MEDS ORDERED: AZITHROMYCIN INJ 500 MG VIAL IV ONE (00:25)
[2018-04-23] MEDS: AZITHROMYCIN 500 MG in DEXTROSE 5%-WATER 250 ML IV SCH ×2 (01:07→22:41)
[2018-04-23] MEDS: LANSOPRAZOLE 30 MG TAB.RAP.DR PO SCH ×2 (05:22→17:50)
[2018-04-23] MEDS: METHYLPREDNISOLONE INJ 125 MG/2 ML SDV IV SCH ×3 (05:22→22:41)
[2018-04-23] MEDS: NORMAL SALINE 1000 ML 1,000 ML IV PRN ×2 (05:24→20:27)
[2018-04-23 05:37] LABS: HEMATOCRIT 35.7 % (36.0-47.0); HEMOGLOBIN 12.2 g/dL (12.0-15.5); MEAN CORPUSCULAR HEMOGLOBIN 31.5 pg (27.0-33.4); MEAN CORPUSCULAR HGB CONC 34.2 g/dL (32.0-36.0); MEAN CORPUSCULAR VOLUME 92 fl (80-97); PLATELET COUNT 206 10^3/uL (150-450); RED BLOOD COUNT 3.88 10^6/uL (3.72-5.28); RED CELL DISTRIBUTION WIDTH 14.9 % (11.5-14.0)
[2018-04-23 05:54] LABS: ALANINE AMINOTRANSFERASE 26 U/L (9-52); ALBUMIN 4.4 g/dL (3.5-5.0); ALKALINE PHOSPHATASE 82 U/L (38-126); ANION GAP 15 (5-19); ASPARTATE AMINO TRANSFERASE 45 U/L (14-36); BILIRUBIN,DIRECT 0.2 mg/dL (0.0-0.4); BILIRUBIN,TOTAL 0.6 mg/dL (0.2-1.3); BLOOD UREA NITROGEN 18 mg/dL (7-20); CARBON DIOXIDE 27 mmol/L (22-30); CHLORIDE 100 mmol/L (98-107); GLUCOSE 123 mg/dL (75-110); POTASSIUM 4.1 mmol/L (3.6-5.0); SODIUM 142.3 mmol/L (137-145)
[2018-04-23 06:19] LABS: WHITE BLOOD COUNT 13.6 10^3/uL (4.0-10.5)
[2018-04-23 06:22] LABS: ABSOLUTE LYMPHOCYTES# (MANUAL) 0.3 10^3/uL (0.5-4.7); ABSOLUTE MONOCYTES # (MANUAL) 0.4 10^3/uL (0.1-1.4); ABSOLUTE NEUTROPHILS# (MANUAL) 12.9 10^3/uL (1.7-8.2); BASOPHILS % (MANUAL) 0 % (0-2); EOSINOPHILS % (MANUAL) 0 % (0-6); LYMPHOCYTES % (MANUAL) 2 % (13-45); MONOCYTES % (MANUAL) 3 % (3-13); SEGMENTED NEUTROPHILS % (MAN) 95 % (42-78); TOTAL CELLS COUNTED 100
[2018-04-23 06:23] LABS: ANISOCYTOSIS SLIGHT; PLATELET COMMENT ADEQUATE; PLATELET LARGE PRESENT; SCHISTOCYTES 1+; TOXIC GRANULATION 1+
[2018-04-23] MEDS: IPRATROPIUM/ALBUTEROL 0.5-2.5 MG/3 ML AMPUL NEB PRN (06:42)
[2018-04-23] MEDS: HYDROCHLOROTHIAZIDE 25 MG TABLET PO SCH (09:39)
[2018-04-23] MEDS: VARENICLINE TARTRATE 0.5 MG TABLET PO SCH ×2 (09:40→17:50)
[2018-04-23] MEDS: CHOLECALCIFEROL (D3) 1,000 UNIT TABLET PO SCH (09:40)
[2018-04-23] MEDS: BENZONATATE 100 MG CAPSULE PO SCH ×3 (09:40→17:50)
[2018-04-23] MEDS: ENOXAPARIN SODIUM INJ 40 MG/0.4 ML DISP.SYRIN SUBCUT SCH (09:41)
--- NOTE | 2018-04-23 10:52 | PDOC PROGRESS REPORT ---
Subjective Progress Note for:: 04/23/18 Subjective:: Patient was seen by the bedside, she is very symptomatic, on auscultation there is severe diffuse wheezes on both lung frye. Yesterday CT chest was done with contrast because of concern for neoplasm, he demonstrated marked diffuse emphysematous changes with hyperinflation of the lungs no pneumonia was found also found was a 1.1 x 0.9 rounded soft tissue nodule in the left lower lobe which is new from prior study, she is a smoker she has lost weight, we will order CT-guided needle biopsy for tomorrow morning Reason For Visit: ACUTE HYPOXEMIC RESPIRATORY FAILURE, ACUTE COPD Physical Exam Vital Signs: Temp Pulse Resp BP Pulse Ox 98.1 F 89 20 122/94 H 96 04/23/18 03:37 04/23/18 07:00 04/23/18 06:43 04/23/18 03:37 04/23/18 06:43 Intake & Output 04/22/18 04/23/18 04/24/18 06:59 06:59 06:59 Intake Total 396 4089 Output Total 250 1150 Balance 146 2939 Weight 45.7 kg 48.2 kg General appearance: PRESENT: mild distress Eye exam: PRESENT: PERRLA Respiratory exam: PRESENT: wheezes Cardiovascular exam: PRESENT: +S1, +S2 GI/Abdominal exam: PRESENT: soft Neurological exam: PRESENT: alert, CN II-XII grossly intact Results Laboratory Results: 04/23/18 04:36 04/23/18 04:36 04/23/18 04/23/18 04:36 04:36 WBC 13.6 H D RBC 3.88 Hgb 12.2 Hct 35.7 L MCV 92 MCH 31.5 MCHC 34.2 RDW 14.9 H Plt Count 206 Seg Neutrophils % Not Reportable Lymphocytes % Not Reportable Monocytes % Not Reportable Eosinophils % Not Reportable Basophils % Not Reportable Absolute Neutrophils Not Reportable Absolute Lymphocytes Not Reportable Absolute Monocytes Not Reportable Absolute Eosinophils Not Reportable Absolute Basophils Not Reportable Sodium 142.3 Potassium 4.1 Chloride 100 Carbon Dioxide 27 Anion Gap 15 BUN 18 Creatinine 0.63 Est GFR ( Amer) > 60 Est GFR (Non-Af Amer) > 60 Glucose 123 H Calcium 10.0 Total Bilirubin 0.6 AST 45 H ALT 26 Alkaline Phosphatase 82 Total Protein 7.0 Albumin 4.4 04/21/18 04/21/18 04/22/18 20:10 20:10 02:09 Creatine Kinase 91 119 CK-MB (CK-2) 0.90 Troponin I < 0.012 04/22/18 04/22/18 04/22/18 02:09 08:41 08:41 Creatine Kinase 155 H CK-MB (CK-2) 1.36 1.65 Troponin I < 0.012 < 0.012 Impressions: Chest CT 04/22/18 00:00 IMPRESSION: Left lower lobe new 1.1 cm soft tissue nodule. Recommend follow-up PET imaging or CT-guided biopsy. No acute finding to suggest pneumonia. Assessment & Plan - Diagnosis (1) Acute exacerbation of chronic obstructive pulmonary disease (COPD) Is this a current diagnosis for this admission?: Yes Plan: There is diffuse wheezing in both lung field, change DuoNeb to every 4 scheduled , as needed Xopenex every 2 hours (2) Tobacco abuse Is this a current diagnosis for this admission?: Yes (3) Marijuana abuse Is this a current diagnosis for this admission?: Yes (4) Pulmonary nodule Is this a current diagnosis for this admission?: Yes Plan: There is a 1.1 x 0.9 cm pulmonary nodule, in a smoker with severe lung disease, suspicious for neoplasm, CT-guided biopsy will be ordered
[2018-04-23] MEDS ORDERED: LEVALBUTEROL HCL NEB 0.63 MG/3 ML AMPUL NEB PRN (11:05)
[2018-04-23] MEDS: IPRATROPIUM/ALBUTEROL 0.5-2.5 MG/3 ML AMPUL NEB SCH ×3 (11:54→19:43)
[2018-04-23] MEDS: DOCUSATE SODIUM 100 MG/10 ML UDC PO PRN (15:46)
[2018-04-23] MEDS: GUAIFENESIN SYRP 200 MG/10 ML UDC PO PRN (15:48)
[2018-04-24] MEDS: IPRATROPIUM/ALBUTEROL 0.5-2.5 MG/3 ML AMPUL NEB SCH ×6 (00:22→19:29)
[2018-04-24] MEDS: METHYLPREDNISOLONE INJ 125 MG/2 ML SDV IV SCH ×3 (05:49→22:32)
[2018-04-24] MEDS: LANSOPRAZOLE 30 MG TAB.RAP.DR PO SCH ×2 (05:50→17:46)
[2018-04-24 06:26] LABS: HEMATOCRIT 35.7 % (36.0-47.0); MEAN CORPUSCULAR HEMOGLOBIN 31.2 pg (27.0-33.4); MEAN CORPUSCULAR HGB CONC 33.7 g/dL (32.0-36.0); MEAN CORPUSCULAR VOLUME 93 fl (80-97); PLATELET COUNT 216 10^3/uL (150-450); RED BLOOD COUNT 3.85 10^6/uL (3.72-5.28); RED CELL DISTRIBUTION WIDTH 14.9 % (11.5-14.0); WHITE BLOOD COUNT 14.6 10^3/uL (4.0-10.5)
[2018-04-24 06:46] LABS: ALANINE AMINOTRANSFERASE 60 U/L (9-52); ALBUMIN 4.2 g/dL (3.5-5.0); ALKALINE PHOSPHATASE 75 U/L (38-126); ANION GAP 11 (5-19); ASPARTATE AMINO TRANSFERASE 70 U/L (14-36); BILIRUBIN,DIRECT 0.2 mg/dL (0.0-0.4); BILIRUBIN,TOTAL 0.6 mg/dL (0.2-1.3); BLOOD UREA NITROGEN 22 mg/dL (7-20); CALCIUM 9.8 mg/dL (8.4-10.2); CARBON DIOXIDE 32 mmol/L (22-30); CHLORIDE 98 mmol/L (98-107); GLUCOSE 114 mg/dL (75-110); TOTAL PROTEIN 6.8 g/dL (6.3-8.2)
[2018-04-24 07:24] LABS: ABSOLUTE LYMPHOCYTES# (MANUAL) 0.3 10^3/uL (0.5-4.7); ABSOLUTE MONOCYTES # (MANUAL) 0.3 10^3/uL (0.1-1.4); ANISOCYTOSIS SLIGHT; BASOPHILS % (MANUAL) 0 % (0-2); EOSINOPHILS % (MANUAL) 0 % (0-6); HYPOCHROMASIA SLIGHT; LYMPHOCYTES % (MANUAL) 2 % (13-45); MONOCYTES % (MANUAL) 2 % (3-13); PLATELET COMMENT ADEQUATE; SEGMENTED NEUTROPHILS % (MAN) 96 % (42-78); TOTAL CELLS COUNTED 100; TOXIC GRANULATION SLIGHT
[2018-04-24] MEDS ORDERED: NORMAL SALINE 1000 ML 1,000 ML IV PRN (08:45)
--- NOTE | 2018-04-24 08:53 | PDOC CONSULTATION ---
Consultation Consult Date: 04/24/18 Attending physician:: LAYNE CAIN Consult reason:: Left lower lung mass History of Present Illness Admission Date/PCP: 04/21/18 18:31 LAYNE CAIN MD Patient complains of: New left lower lobe lesion History of Present Illness: AMELIA AUSTIN is a 63 year old female with long-standing history of tobacco use , greater than [id number] history of tobacco, presents with a 1.1 cm left lower lung lesion. She also has what appears to be a COPD exacerbation with increasing shortness of breath, necessitating O2 use as well as IV steroids. She had CTA of the chest to evaluate for PE, this was negative but there is a 1.1 cm nodule in the left lower lobe, of note she had imaging done about 6 months ago as well as one year ago both of which did not show this nodule. Past Medical History Cardiac Medical History: Reports: Hypertension Denies: Coronary Artery Disease, Myocardial Infarction Pulmonary Medical History: Reports: Chronic Obstructive Pulmonary Disease (COPD) Denies: Asthma, Bronchitis, Pneumonia Neurological Medical History: Denies: Seizures GI Medical History: Reports: Gastroesophageal Reflux Disease Musculoskeltal Medical History: Denies: Arthritis Hematology: Denies: Anemia Past Surgical History Past Surgical History: Reports: Tubal Ligation Denies: Hysterectomy Social History Information Source: Patient Smoking Status: Current Every Day Smoker Cigarettes Packs Per Day: 1 Number of Years Smokin - Advance Directive Resuscitation Status: Full Code Family History Family History: Reviewed & Not Pertinent Parental Family History Reviewed: Yes Children Family History Reviewed: Yes Sibling(s) Family History Reviewed.: Yes Medication/Allergy Home Medications: Albuterol Sulfate [Proair HFA Inhalation Aerosol 8.5 gm MDI] 2 puff IH Q6HP PRN 04/21/18 Benzonatate [Tessalon Perle 100 mg Capsule] 100 mg PO TIDP PRN 04/21/18 Cholecalciferol (Vitamin D3) [Vitamin D3 1000 Unit Tablet] 1,000 unit PO DAILY 04/21/18 Hydrochlorothiazide [Hydrodiuril 25 mg Tablet] 25 mg PO DAILY 04/21/18 Omeprazole 40 mg PO DAILY 04/21/18 Umeclidinium Brm/Vilanterol Tr [Anoro Ellipta 62.5-25 Mcg INH] 1 puff IH QAM Allergies/Adverse Reactions: No Known Allergies Allergy (Verified 04/21/18 14:46) Review of Systems Constitutional: ABSENT: chills, fever(s), headache(s), weight gain, weight loss Eyes: ABSENT: visual disturbances Ears: ABSENT: hearing changes Cardiovascular: ABSENT: chest pain, dyspnea on exertion, edema, orthropnea, palpitations Respiratory: ABSENT: cough, hemoptysis Gastrointestinal: ABSENT: abdominal pain, constipation, diarrhea, hematemesis, hematochezia, nausea, vomiting Genitourinary: ABSENT: dysuria, hematuria Musculoskeletal: ABSENT: joint swelling Integumentary: ABSENT: rash, wounds Neurological: ABSENT: abnormal gait, abnormal speech, confusion, dizziness, focal weakness, syncope Psychiatric: ABSENT: anxiety, depression, homidical ideation, suicidal ideation Endocrine: ABSENT: cold intolerance, heat intolerance, polydipsia, polyuria Hematologic/Lymphatic: ABSENT: easy bleeding, easy bruising Physical Exam Vital Signs: Temp Pulse Resp BP Pulse Ox 97.7 F 73 16 133/97 H 93 04/24/18 04:07 04/24/18 08:15 04/24/18 08:15 04/24/18 04:07 04/24/18 08:15 Intake & Output 04/23/18 04/24/18 04/25/18 06:59 06:59 06:59 Intake Total 4089 2700 Output Total 1150 1800 Balance 2939 900 Weight 48.2 kg 46.7 kg General appearance: PRESENT: no acute distress, well-developed, well-nourished Head exam: PRESENT: atraumatic, normocephalic Eye exam: PRESENT: conjunctiva pink, EOMI, PERRLA. ABSENT: scleral icterus Ear exam: PRESENT: normal external ear exam Mouth exam: PRESENT: moist, tongue midline Neck exam: ABSENT: carotid bruit, JVD, lymphadenopathy, thyromegaly Respiratory exam: PRESENT: clear to auscultation pool. ABSENT: rales, rhonchi, wheezes Cardiovascular exam: PRESENT: RRR. ABSENT: diastolic murmur, rubs, systolic murmur Pulses: PRESENT: normal dorsalis pedis pul Vascular exam: PRESENT: normal capillary refill GI/Abdominal exam: PRESENT: normal bowel sounds, soft. ABSENT: distended, guarding, mass, organolmegaly, rebound, tenderness Rectal exam: PRESENT: deferred Extremities exam: PRESENT: full ROM. ABSENT: calf tenderness, clubbing, pedal edema Neurological exam: PRESENT: alert, awake, oriented to person, oriented to place , oriented to time, oriented to situation, CN II-XII grossly intact. ABSENT: motor sensory deficit Psychiatric exam: PRESENT: appropriate affect, normal mood. ABSENT: homicidal ideation, suicidal ideation Skin exam: PRESENT: dry, intact, warm. ABSENT: cyanosis, rash Results Laboratory Results: 04/24/18 04:54 04/24/18 04:54 04/24/18 04/24/18 04:54 04:54 WBC 14.6 H RBC 3.85 Hgb 12.0 Hct 35.7 L MCV 93 MCH 31.2 MCHC 33.7 RDW 14.9 H Plt Count 216 Seg Neutrophils % Not Reportable Lymphocytes % Not Reportable Monocytes % Not Reportable Eosinophils % Not Reportable Basophils % Not Reportable Absolute Neutrophils Not Reportable Absolute Lymphocytes Not Reportable Absolute Monocytes Not Reportable Absolute Eosinophils Not Reportable Absolute Basophils Not Reportable Sodium 141.0 Potassium 4.0 Chloride 98 Carbon Dioxide 32 H Anion Gap 11 BUN 22 H Creatinine 0.65 Est GFR ( Amer) > 60 Est GFR (Non-Af Amer) > 60 Glucose 114 H Calcium 9.8 Total Bilirubin 0.6 AST 70 H ALT 60 H Alkaline Phosphatase 75 Total Protein 6.8 Albumin 4.2 04/21/18 20:49 Clean Catch Midstream Urine Culture - Final Mixed Urogenital Naila 04/21/18 04/21/18 04/22/18 20:10 20:10 02:09 Creatine Kinase 91 119 CK-MB (CK-2) 0.90 Troponin I < 0.012 04/22/18 04/22/18 04/22/18 02:09 08:41 08:41 Creatine Kinase 155 H CK-MB (CK-2) 1.36 1.65 Troponin I < 0.012 < 0.012 Impressions: Chest CT 04/22/18 00:00 IMPRESSION: Left lower lobe new 1.1 cm soft tissue nodule. Recommend follow-up PET imaging or CT-guided biopsy. No acute finding to suggest pneumonia. Status: Image reviewed by me Assessment & Plan - Diagnosis (1) Pulmonary nodule Is this a current diagnosis for this admission?: Yes Plan: Solitary pulmonary nodule, given smoking history always concerning for primary malignancy, plan for PET/CT as an outpatient. Based upon that we will decide on where to go. I discussed her case extensively with her daughters who are with her, of note, they live in [place], close to [facility] as well as [facility]. They would like her to have evaluation there because she does not really have any other family close by here. We will go ahead and get PET/CT done locally as an outpatient and if it is PET positive I will need to set her up with pulmonology in [place]. - Time Time Spent: Greater than 70 Minutes - Inpatient Certification Based on my medical assessment, after consideration of the patient's comorbidities, presenting symptoms, or acuity I expect that the services needed warrant INPATIENT care.: Yes I certify that my determination is in accordance with my understanding of Medicare's requirements for reasonable and necessary INPATIENT services [42 CFR 412.3e].: Yes Medical Necessity: Need for Nebulizer Therapy and Monitoring of Response, Risk of Complication if Not Cared For in Hospital
[2018-04-24] MEDS: CHOLECALCIFEROL (D3) 1,000 UNIT TABLET PO SCH (09:59)
[2018-04-24] MEDS: BENZONATATE 100 MG CAPSULE PO SCH ×3 (09:59→17:46)
[2018-04-24] MEDS: HYDROCHLOROTHIAZIDE 25 MG TABLET PO SCH (09:59)
[2018-04-24] MEDS: VARENICLINE TARTRATE 0.5 MG TABLET PO SCH ×2 (10:00→17:46)
[2018-04-24] MEDS: DOCUSATE SODIUM 100 MG/10 ML UDC PO PRN (10:00)
--- NOTE | 2018-04-24 12:48 | PDOC PROGRESS REPORT ---
Subjective Progress Note for:: 04/24/18 Subjective:: Patient is currently doing well denied any chest pain denied any shortness of breath patient's CT scan suggested pulmonary nodules we will schedule outpatients PET scan per oncology Reason For Visit: ACUTE HYPOXEMIC RESPIRATORY FAILURE, ACUTE COPD Physical Exam Vital Signs: Temp Pulse Resp BP Pulse Ox 98.2 F 98 14 143/91 H 92 04/24/18 11:02 04/24/18 11:54 04/24/18 11:54 04/24/18 11:02 04/24/18 11:54 Intake & Output 04/23/18 04/24/18 04/25/18 06:59 06:59 06:59 Intake Total 4089 2700 625 Output Total 1150 1800 Balance 2939 900 625 Weight 48.2 kg 46.7 kg General appearance: PRESENT: no acute distress, well-developed, well-nourished Head exam: PRESENT: atraumatic, normocephalic Eye exam: PRESENT: conjunctiva pink, EOMI, PERRLA. ABSENT: scleral icterus Ear exam: PRESENT: normal external ear exam Mouth exam: PRESENT: moist, tongue midline Neck exam: PRESENT: full ROM. ABSENT: carotid bruit, JVD, lymphadenopathy, thyromegaly Respiratory exam: PRESENT: decreased breath sounds Cardiovascular exam: PRESENT: RRR. ABSENT: diastolic murmur, rubs, systolic murmur Pulses: PRESENT: normal dorsalis pedis pul, +2 pedal pulses bilateral Vascular exam: PRESENT: normal capillary refill GI/Abdominal exam: PRESENT: normal bowel sounds, soft. ABSENT: distended, guarding, mass, organolmegaly, rebound, tenderness Rectal exam: PRESENT: deferred Extremities exam: ABSENT: pedal edema Neurological exam: PRESENT: alert, awake, oriented to person, oriented to place , oriented to time, oriented to situation, CN II-XII grossly intact. ABSENT: motor sensory deficit Psychiatric exam: PRESENT: appropriate affect, normal mood. ABSENT: homicidal ideation, suicidal ideation Skin exam: PRESENT: dry, intact, warm. ABSENT: cyanosis, rash Results Laboratory Results: 04/24/18 04:54 04/24/18 04:54 04/24/18 04/24/18 04:54 04:54 WBC 14.6 H RBC 3.85 Hgb 12.0 Hct 35.7 L MCV 93 MCH 31.2 MCHC 33.7 RDW 14.9 H Plt Count 216 Seg Neutrophils % Not Reportable Lymphocytes % Not Reportable Monocytes % Not Reportable Eosinophils % Not Reportable Basophils % Not Reportable Absolute Neutrophils Not Reportable Absolute Lymphocytes Not Reportable Absolute Monocytes Not Reportable Absolute Eosinophils Not Reportable Absolute Basophils Not Reportable Sodium 141.0 Potassium 4.0 Chloride 98 Carbon Dioxide 32 H Anion Gap 11 BUN 22 H Creatinine 0.65 Est GFR ( Amer) > 60 Est GFR (Non-Af Amer) > 60 Glucose 114 H Calcium 9.8 Total Bilirubin 0.6 AST 70 H ALT 60 H Alkaline Phosphatase 75 Total Protein 6.8 Albumin 4.2 04/21/18 20:49 Clean Catch Midstream Urine Culture - Final Mixed Urogenital Naila 04/21/18 04/21/18 04/22/18 20:10 20:10 02:09 Creatine Kinase 91 119 CK-MB (CK-2) 0.90 Troponin I < 0.012 04/22/18 04/22/18 04/22/18 02:09 08:41 08:41 Creatine Kinase 155 H CK-MB (CK-2) 1.36 1.65 Troponin I < 0.012 < 0.012 Impressions: Chest CT 04/22/18 00:00 IMPRESSION: Left lower lobe new 1.1 cm soft tissue nodule. Recommend follow-up PET imaging or CT-guided biopsy. No acute finding to suggest pneumonia. Assessment & Plan - Diagnosis (1) Acute exacerbation of chronic obstructive pulmonary disease (COPD) Is this a current diagnosis for this admission?: Yes Plan: REDUCE IV STEROID (2) Pulmonary nodule Is this a current diagnosis for this admission?: Yes (3) Tobacco abuse Is this a current diagnosis for this admission?: Yes - Time Time Spent with patient: 15-24 minutes Medications reviewed and adjusted accordingly: Yes Anticipated discharge: Home Within: Other - Inpatient Certification Based on my medical assessment, after consideration of the patient's comorbidities, presenting symptoms, or acuity I expect that the services needed warrant INPATIENT care.: Yes I certify that my determination is in accordance with my understanding of Medicare's requirements for reasonable and necessary INPATIENT services [42 CFR 412.3e].: Yes Medical Necessity: Need Close Monitoring Due to Risk of Patient Decompensation, Need for IV Antibiotics Post Hospital Care: D/C Occupational Health Coordinator Documentation - Plan Summary Plan Summary: D/W PT AND FAMILY ON BED SIDE ALL PLAN AND PET SCAN AND SMOKING COUNCELING
[2018-04-24] MEDS: GUAIFENESIN SYRP 200 MG/10 ML UDC PO PRN ×2 (13:19→22:43)
[2018-04-24] MEDS: AZITHROMYCIN 500 MG in DEXTROSE 5%-WATER 250 ML IV SCH (22:32)
[2018-04-25] MEDS: IPRATROPIUM/ALBUTEROL 0.5-2.5 MG/3 ML AMPUL NEB SCH ×7 (00:17→23:50)
[2018-04-25 05:36] LABS: HEMATOCRIT 36.5 % (36.0-47.0); HEMOGLOBIN 12.4 g/dL (12.0-15.5); MEAN CORPUSCULAR HEMOGLOBIN 31.1 pg (27.0-33.4); MEAN CORPUSCULAR HGB CONC 33.8 g/dL (32.0-36.0); MEAN CORPUSCULAR VOLUME 92 fl (80-97); PLATELET COUNT 226 10^3/uL (150-450); RED BLOOD COUNT 3.98 10^6/uL (3.72-5.28); WHITE BLOOD COUNT 11.7 10^3/uL (4.0-10.5)
[2018-04-25 05:53] LABS: ANION GAP 14 (5-19); BLOOD UREA NITROGEN 23 mg/dL (7-20); CALCIUM 10.1 mg/dL (8.4-10.2); CARBON DIOXIDE 30 mmol/L (22-30); CHLORIDE 96 mmol/L (98-107); GLUCOSE 121 mg/dL (75-110); POTASSIUM 4.2 mmol/L (3.6-5.0); SODIUM 140.2 mmol/L (137-145)
[2018-04-25 06:08] LABS: ABSOLUTE LYMPHOCYTES# (MANUAL) 0.8 10^3/uL (0.5-4.7); ABSOLUTE MONOCYTES # (MANUAL) 0.1 10^3/uL (0.1-1.4); ABSOLUTE NEUTROPHILS# (MANUAL) 10.8 10^3/uL (1.7-8.2); BASOPHILS % (MANUAL) 0 % (0-2); EOSINOPHILS % (MANUAL) 0 % (0-6); LYMPHOCYTES % (MANUAL) 7 % (13-45); MONOCYTES % (MANUAL) 1 % (3-13); SEGMENTED NEUTROPHILS % (MAN) 92 % (42-78); TOTAL CELLS COUNTED 100
[2018-04-25 06:15] LABS: TOXIC GRANULATION SLIGHT
[2018-04-25 06:16] LABS: ANISOCYTOSIS SLIGHT; BURR CELLS 1+; HELMET CELLS SLIGHT; OVALOCYTES 1+; TARGET CELLS 2+
[2018-04-25 06:17] LABS: PLATELET COMMENT ADEQUATE; TEAR DROP CELLS 1+
[2018-04-25] MEDS: METHYLPREDNISOLONE INJ 125 MG/2 ML SDV IV SCH (08:24)
[2018-04-25] MEDS: LANSOPRAZOLE 30 MG TAB.RAP.DR PO SCH ×2 (08:25→17:27)
--- NOTE | 2018-04-25 08:26 | PDOC PROGRESS REPORT ---
Subjective Progress Note for:: 04/25/18 Subjective:: Patient is feeling much better Patients walk on the hallway without any problems Denied any chest pain denied any shortness of the breath No fever no chills Reason For Visit: ACUTE HYPOXEMIC RESPIRATORY FAILURE, ACUTE COPD Physical Exam Vital Signs: Temp Pulse Resp BP Pulse Ox 98.3 F 70 18 152/94 H 97 04/25/18 07:26 04/25/18 07:26 04/25/18 07:26 04/25/18 07:26 04/25/18 07:26 Intake & Output 04/24/18 04/25/18 04/26/18 06:59 06:59 06:59 Intake Total 2700 2454 Output Total 1800 500 Balance 900 1954 Weight 46.7 kg 46.7 kg General appearance: PRESENT: no acute distress, well-developed, well-nourished Head exam: PRESENT: atraumatic, normocephalic Eye exam: PRESENT: conjunctiva pink, EOMI, PERRLA. ABSENT: scleral icterus Ear exam: PRESENT: normal external ear exam Mouth exam: PRESENT: moist, tongue midline Neck exam: PRESENT: full ROM. ABSENT: carotid bruit, JVD, lymphadenopathy, thyromegaly Respiratory exam: PRESENT: clear to auscultation pool Cardiovascular exam: PRESENT: RRR. ABSENT: diastolic murmur, rubs, systolic murmur Pulses: PRESENT: normal dorsalis pedis pul, +2 pedal pulses bilateral Vascular exam: PRESENT: normal capillary refill GI/Abdominal exam: PRESENT: normal bowel sounds, soft. ABSENT: distended, guarding, mass, organolmegaly, rebound, tenderness Rectal exam: PRESENT: deferred Extremities exam: ABSENT: pedal edema Musculoskeletal exam: PRESENT: ambulatory Neurological exam: PRESENT: alert, awake, oriented to person, oriented to place , oriented to time, oriented to situation, CN II-XII grossly intact. ABSENT: motor sensory deficit Psychiatric exam: PRESENT: appropriate affect, normal mood. ABSENT: homicidal ideation, suicidal ideation Skin exam: PRESENT: dry, intact, warm. ABSENT: cyanosis, rash Results Laboratory Results: 04/25/18 04:39 04/25/18 04:39 04/25/18 04/25/18 04:39 04:39 WBC 11.7 H RBC 3.98 Hgb 12.4 Hct 36.5 MCV 92 MCH 31.1 MCHC 33.8 RDW 15.0 H Plt Count 226 Seg Neutrophils % Not Reportable Lymphocytes % Not Reportable Monocytes % Not Reportable Eosinophils % Not Reportable Basophils % Not Reportable Absolute Neutrophils Not Reportable Absolute Lymphocytes Not Reportable Absolute Monocytes Not Reportable Absolute Eosinophils Not Reportable Absolute Basophils Not Reportable Sodium 140.2 Potassium 4.2 Chloride 96 L Carbon Dioxide 30 Anion Gap 14 BUN 23 H Creatinine 0.60 Est GFR ( Amer) > 60 Est GFR (Non-Af Amer) > 60 Glucose 121 H Calcium 10.1 04/21/18 04/21/18 04/22/18 20:10 20:10 02:09 Creatine Kinase 91 119 CK-MB (CK-2) 0.90 Troponin I < 0.012 04/22/18 04/22/18 04/22/18 02:09 08:41 08:41 Creatine Kinase 155 H CK-MB (CK-2) 1.36 1.65 Troponin I < 0.012 < 0.012 Impressions: Chest CT 04/22/18 00:00 IMPRESSION: Left lower lobe new 1.1 cm soft tissue nodule. Recommend follow-up PET imaging or CT-guided biopsy. No acute finding to suggest pneumonia. Assessment & Plan - Diagnosis (1) Acute exacerbation of chronic obstructive pulmonary disease (COPD) Is this a current diagnosis for this admission?: Yes Plan: DC the IV steroids start on a p.o. steroid continues to nebulizer (2) Pulmonary nodule Is this a current diagnosis for this admission?: Yes (3) Tobacco abuse Is this a current diagnosis for this admission?: Yes - Time Time Spent with patient: 15-24 minutes Medications reviewed and adjusted accordingly: Yes Anticipated discharge: Home Within: within 24 hours - Plan Summary Plan Summary: Discussed with the patient and the family on the bedside record of the patient' s current conditions
--- NOTE | 2018-04-25 08:29 | PDOC PROGRESS REPORT ---
Subjective Progress Note for:: 04/25/18 Subjective:: Pt doing better, feeling better, planned for home 02 eval Reason For Visit: ACUTE HYPOXEMIC RESPIRATORY FAILURE, ACUTE COPD Physical Exam Vital Signs: Temp Pulse Resp BP Pulse Ox 98.3 F 70 18 152/94 H 97 04/25/18 07:26 04/25/18 07:26 04/25/18 07:26 04/25/18 07:26 04/25/18 07:26 Intake & Output 04/24/18 04/25/18 04/26/18 06:59 06:59 06:59 Intake Total 2700 2454 Output Total 1800 500 Balance 900 1954 Weight 46.7 kg 46.7 kg General appearance: PRESENT: no acute distress, well-developed, well-nourished Head exam: PRESENT: atraumatic, normocephalic Eye exam: PRESENT: conjunctiva pink, EOMI, PERRLA. ABSENT: scleral icterus Ear exam: PRESENT: normal external ear exam Mouth exam: PRESENT: moist, tongue midline Neck exam: ABSENT: carotid bruit, JVD, lymphadenopathy, thyromegaly Respiratory exam: PRESENT: clear to auscultation pool. ABSENT: rales, rhonchi, wheezes Cardiovascular exam: PRESENT: RRR. ABSENT: diastolic murmur, rubs, systolic murmur Pulses: PRESENT: normal dorsalis pedis pul Vascular exam: PRESENT: normal capillary refill GI/Abdominal exam: PRESENT: normal bowel sounds, soft. ABSENT: distended, guarding, mass, organolmegaly, rebound, tenderness Rectal exam: PRESENT: deferred Extremities exam: PRESENT: full ROM. ABSENT: calf tenderness, clubbing, pedal edema Neurological exam: PRESENT: alert, awake, oriented to person, oriented to place , oriented to time, oriented to situation, CN II-XII grossly intact. ABSENT: motor sensory deficit Psychiatric exam: PRESENT: appropriate affect, normal mood. ABSENT: homicidal ideation, suicidal ideation Skin exam: PRESENT: dry, intact, warm. ABSENT: cyanosis, rash Results Laboratory Results: 04/25/18 04:39 04/25/18 04:39 04/25/18 04/25/18 04:39 04:39 WBC 11.7 H RBC 3.98 Hgb 12.4 Hct 36.5 MCV 92 MCH 31.1 MCHC 33.8 RDW 15.0 H Plt Count 226 Seg Neutrophils % Not Reportable Lymphocytes % Not Reportable Monocytes % Not Reportable Eosinophils % Not Reportable Basophils % Not Reportable Absolute Neutrophils Not Reportable Absolute Lymphocytes Not Reportable Absolute Monocytes Not Reportable Absolute Eosinophils Not Reportable Absolute Basophils Not Reportable Sodium 140.2 Potassium 4.2 Chloride 96 L Carbon Dioxide 30 Anion Gap 14 BUN 23 H Creatinine 0.60 Est GFR ( Amer) > 60 Est GFR (Non-Af Amer) > 60 Glucose 121 H Calcium 10.1 04/21/18 04/21/18 04/22/18 20:10 20:10 02:09 Creatine Kinase 91 119 CK-MB (CK-2) 0.90 Troponin I < 0.012 04/22/18 04/22/18 04/22/18 02:09 08:41 08:41 Creatine Kinase 155 H CK-MB (CK-2) 1.36 1.65 Troponin I < 0.012 < 0.012 Impressions: Chest CT 04/22/18 00:00 IMPRESSION: Left lower lobe new 1.1 cm soft tissue nodule. Recommend follow-up PET imaging or CT-guided biopsy. No acute finding to suggest pneumonia. Assessment & Plan - Diagnosis (1) Pulmonary nodule Is this a current diagnosis for this admission?: Yes Plan: F/u in office 1 wk from d/c, will set up outpt PET
[2018-04-25] MEDS: PREDNISONE 20 MG TABLET PO SCH ×2 (09:53→17:24)
[2018-04-25] MEDS: CHOLECALCIFEROL (D3) 1,000 UNIT TABLET PO SCH (09:53)
[2018-04-25] MEDS: BENZONATATE 100 MG CAPSULE PO SCH ×3 (09:53→17:26)
[2018-04-25] MEDS: HYDROCHLOROTHIAZIDE 25 MG TABLET PO SCH (09:53)
[2018-04-25] MEDS: VARENICLINE TARTRATE 0.5 MG TABLET PO SCH ×2 (09:54→17:26)
[2018-04-25] MEDS ORDERED: BISACODYL 10 MG SUPP.RECT PR PRN (11:39)
--- NOTE | 2018-04-25 11:46 | PDOC CONSULTATION ---
Consultation Consult Date: 04/24/18 Attending physician:: LAYNE CAIN Consult reason:: Exacerbation COPD/lung nodule History of Present Illness Admission Date/PCP: 04/21/18 18:31 LAYNE CAIN MD History of Present Illness: AMELIA AUSTIN is a 63 year old female, resents with increasing shortness of breath and a cough productive of clear phlegm she denies hemoptysis her PPD was negative dates unknown he believes she has some asthma as a child but she she grew out of it she admits to exposure to large amounts of passive smoke as a child as well as an adult she has self smoked extubated for 40 years but is now down to half a pack a day. 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 She has no pets and she frequently travels to [place] as well as other states in the . She denies angina-like chest pain sleeps on 2 pillows admits to PND intermittent nocturnal cough intermittent but has any edema. She is aware of snoring but denies restless sleep nocturia only one time a night she denies unrestful sleep or excessive daytime somnolence. No change in appetite or weight Past Medical History Cardiac Medical History: Reports: Hypertension Denies: Coronary Artery Disease, Myocardial Infarction Pulmonary Medical History: Reports: Chronic Obstructive Pulmonary Disease (COPD) Denies: Asthma, Bronchitis, Pneumonia Neurological Medical History: Denies: Multiple Sclerosis, Seizures Endocrine Medical History: Denies: Hyperthyroidism, Hypothyroidism, Obesity Renal/ Medical History: Denies: Nephrolithiasis Malignancy Medical History: Reports: None GI Medical History: Reports: Gastroesophageal Reflux Disease Denies: Crohn's Disease, Hepatitis, Ulcerative Colitis Musculoskeltal Medical History: Denies: Arthritis Skin Medical History: Denies: Psoriasis Psychiatric Medical History: Reports: Tobacco Dependency Traumatic Medical History: Denies: Traumatic Brain Injury Hematology: Denies: Anemia, Sickle Cell Disease Infectious Medical History: Denies: Hepatitis B, Hepatitis C Past Surgical History Past Surgical History: Reports: Tubal Ligation Denies: Hysterectomy Social History Information Source: Patient, [facility] Records Lives with: Family Smoking Status: Current Every Day Smoker Cigarettes Packs Per Day: 1 Number of Years Smokin Passive smoke exposure as: Both Hx Recreational Drug Use: No Hx Prescription Drug Abuse: No Do you have pets?: No Have you had any respiratory illnesses as a child?: Yes Have you been exposed to any sick contacts recently?: No Have you had any recent respiratory illnesses?: No Have you travelled outside of [place] in the past 12 months?: Yes - Advance Directive Resuscitation Status: Full Code Family History Family History: Hypertension, Malignancy Parental Family History Reviewed: Yes Children Family History Reviewed: Yes Sibling(s) Family History Reviewed.: Yes Medication/Allergy Home Medications: Albuterol Sulfate [Proair HFA Inhalation Aerosol 8.5 gm MDI] 2 puff IH Q6HP PRN 04/21/18 Benzonatate [Tessalon Perle 100 mg Capsule] 100 mg PO TIDP PRN 04/21/18 Cholecalciferol (Vitamin D3) [Vitamin D3 1000 Unit Tablet] 1,000 unit PO DAILY 04/21/18 Hydrochlorothiazide [Hydrodiuril 25 mg Tablet] 25 mg PO DAILY 04/21/18 Omeprazole 40 mg PO DAILY 04/21/18 Umeclidinium Brm/Vilanterol Tr [Anoro Ellipta 62.5-25 Mcg INH] 1 puff IH QAM Allergies/Adverse Reactions: No Known Allergies Allergy (Verified 04/21/18 14:46) Review of Systems Constitutional: PRESENT: fatigue. ABSENT: anorexia, headache(s), night sweats, weight gain, weight loss Eyes: ABSENT: visual disturbances Ears: ABSENT: hearing changes Nose, Mouth, and Throat: ABSENT: mouth pain, sore throat Cardiovascular: PRESENT: dyspnea on exertion. ABSENT: chest pain, palpitations Respiratory: PRESENT: cough, dyspnea, sputum. ABSENT: hemoptysis Gastrointestinal: ABSENT: abdominal pain, bloating, coffee ground emesis, dysphagia, hematemesis, hematochezia, melena, nausea Genitourinary: ABSENT: dysuria, hematuria Musculoskeletal: ABSENT: joint swelling Integumentary: ABSENT: pruritus, rash Neurological: ABSENT: abnormal gait, abnormal movements, abnormal speech, confusion, frequent falls, lack of coordination, memory loss Psychiatric: ABSENT: hallucinations, homidical ideation, suicidal ideation Endocrine: ABSENT: cold intolerance, heat intolerance, polydipsia, polyuria Hematologic/Lymphatic: ABSENT: easy bruising, lymphadenopathy Allergic/Immunologic: ABSENT: seasonal rhinorrhea Physical Exam Vital Signs: Temp Pulse Resp BP Pulse Ox 98.3 F 70 18 152/94 H 97 04/25/18 07:26 04/25/18 07:26 04/25/18 07:26 04/25/18 07:26 04/25/18 07:26 Intake & Output 04/24/18 04/25/18 04/26/18 06:59 06:59 06:59 Intake Total 2700 2454 Output Total 1800 500 Balance 900 1954 Weight 46.7 kg 46.7 kg General appearance: PRESENT: no acute distress, cooperative, thin, well- developed, well-nourished Head exam: PRESENT: atraumatic, normocephalic Eye exam: PRESENT: conjunctiva pale, EOMI. ABSENT: nystagmus, periorbital swelling, scleral icterus Mouth exam: PRESENT: dry mucosa, neck supple, tongue midline Neck exam: ABSENT: carotid bruit, JVD, lymphadenopathy, thyromegaly, tracheal deviation, tracheostomy Respiratory exam: PRESENT: decreased breath sounds, prolonged expiratory phas, rhonchi, symmetrical, unlabored, wheezes. ABSENT: rales, retraction, stridor Cardiovascular exam: PRESENT: RRR, +S1, +S2 Pulses: PRESENT: normal radial pulses GI/Abdominal exam: PRESENT: soft. ABSENT: tenderness Extremities exam: PRESENT: pedal edema. ABSENT: calf tenderness, clubbing, joint swelling Musculoskeletal exam: ABSENT: deformity, dislocation Neurological exam: PRESENT: alert, awake Psychiatric exam: PRESENT: appropriate affect Skin exam: PRESENT: dry, warm Results Laboratory Results: 04/25/18 04:39 04/25/18 04:39 04/25/18 04/25/18 04:39 04:39 WBC 11.7 H RBC 3.98 Hgb 12.4 Hct 36.5 MCV 92 MCH 31.1 MCHC 33.8 RDW 15.0 H Plt Count 226 Seg Neutrophils % Not Reportable Lymphocytes % Not Reportable Monocytes % Not Reportable Eosinophils % Not Reportable Basophils % Not Reportable Absolute Neutrophils Not Reportable Absolute Lymphocytes Not Reportable Absolute Monocytes Not Reportable Absolute Eosinophils Not Reportable Absolute Basophils Not Reportable Sodium 140.2 Potassium 4.2 Chloride 96 L Carbon Dioxide 30 Anion Gap 14 BUN 23 H Creatinine 0.60 Est GFR ( Amer) > 60 Est GFR (Non-Af Amer) > 60 Glucose 121 H Calcium 10.1 04/21/18 04/21/18 04/22/18 20:10 20:10 02:09 Creatine Kinase 91 119 CK-MB (CK-2) 0.90 Troponin I < 0.012 04/22/18 04/22/18 04/22/18 02:09 08:41 08:41 Creatine Kinase 155 H CK-MB (CK-2) 1.36 1.65 Troponin I < 0.012 < 0.012 Impressions: Chest CT 04/22/18 00:00 IMPRESSION: Left lower lobe new 1.1 cm soft tissue nodule. Recommend follow-up PET imaging or CT-guided biopsy. No acute finding to suggest pneumonia. Assessment & Plan - Diagnosis (1) Acute exacerbation of chronic obstructive pulmonary disease (COPD) Is this a current diagnosis for this admission?: Yes Plan: Add Pulmicort to existing regimen (2) Pulmonary nodule Is this a current diagnosis for this admission?: Yes Plan: PET scan when patient is discharged (3) Tobacco abuse Is this a current diagnosis for this admission?: Yes Plan: Smoking: continue to use Chantix
[2018-04-25] MEDS: BUDESONIDE NEB 0.5 MG/2 ML AMPUL NEB SCH ×2 (12:18→20:05)
[2018-04-25] MEDS: GUAIFENESIN SYRP 200 MG/10 ML UDC PO PRN (18:54)
[2018-04-25] MEDS: AZITHROMYCIN 500 MG in DEXTROSE 5%-WATER 250 ML IV SCH (21:20)
[2018-04-26] MEDS: IPRATROPIUM/ALBUTEROL 0.5-2.5 MG/3 ML AMPUL NEB SCH ×2 (04:08→08:24)
[2018-04-26] MEDS: LANSOPRAZOLE 30 MG TAB.RAP.DR PO SCH (05:17)
[2018-04-26 05:23] LABS: ANION GAP 14 (5-19); BLOOD UREA NITROGEN 24 mg/dL (7-20); CARBON DIOXIDE 32 mmol/L (22-30); CHLORIDE 93 mmol/L (98-107); GLUCOSE 99 mg/dL (75-110); POTASSIUM 4.2 mmol/L (3.6-5.0); SODIUM 138.8 mmol/L (137-145)
--- NOTE | 2018-04-26 08:13 | PDOC PROGRESS REPORT ---
Subjective Progress Note for:: 04/26/18 Subjective:: Pt doing better, does not need home o2 Reason For Visit: ACUTE HYPOXEMIC RESPIRATORY FAILURE, ACUTE COPD Physical Exam Vital Signs: Temp Pulse Resp BP Pulse Ox 98.7 F 72 18 132/92 H 95 04/26/18 07:32 04/26/18 07:32 04/26/18 07:32 04/26/18 07:32 04/26/18 07:32 Intake & Output 04/25/18 04/26/18 04/27/18 06:59 06:59 06:59 Intake Total 2454 1330 Output Total 500 Balance 195 1330 Weight 46.7 kg 46.6 kg General appearance: PRESENT: no acute distress, well-developed, well-nourished Head exam: PRESENT: atraumatic, normocephalic Eye exam: PRESENT: conjunctiva pink, EOMI, PERRLA. ABSENT: scleral icterus Ear exam: PRESENT: normal external ear exam Mouth exam: PRESENT: moist, tongue midline Neck exam: ABSENT: carotid bruit, JVD, lymphadenopathy, thyromegaly Respiratory exam: PRESENT: clear to auscultation pool. ABSENT: rales, rhonchi, wheezes Cardiovascular exam: PRESENT: RRR. ABSENT: diastolic murmur, rubs, systolic murmur Pulses: PRESENT: normal dorsalis pedis pul Vascular exam: PRESENT: normal capillary refill GI/Abdominal exam: PRESENT: normal bowel sounds, soft. ABSENT: distended, guarding, mass, organolmegaly, rebound, tenderness Rectal exam: PRESENT: deferred Extremities exam: PRESENT: full ROM. ABSENT: calf tenderness, clubbing, pedal edema Neurological exam: PRESENT: alert, awake, oriented to person, oriented to place , oriented to time, oriented to situation, CN II-XII grossly intact. ABSENT: motor sensory deficit Psychiatric exam: PRESENT: appropriate affect, normal mood. ABSENT: homicidal ideation, suicidal ideation Skin exam: PRESENT: dry, intact, warm. ABSENT: cyanosis, rash Results Laboratory Results: 04/25/18 04:39 04/26/18 04:25 04/26/18 04:25 Sodium 138.8 Potassium 4.2 Chloride 93 L Carbon Dioxide 32 H Anion Gap 14 BUN 24 H Creatinine 0.57 Est GFR ( Amer) > 60 Est GFR (Non-Af Amer) > 60 Glucose 99 Calcium 10.0 04/21/18 04/21/18 04/22/18 20:10 20:10 02:09 Creatine Kinase 91 119 CK-MB (CK-2) 0.90 Troponin I < 0.012 04/22/18 04/22/18 04/22/18 02:09 08:41 08:41 Creatine Kinase 155 H CK-MB (CK-2) 1.36 1.65 Troponin I < 0.012 < 0.012 Impressions: Chest CT 04/22/18 00:00 IMPRESSION: Left lower lobe new 1.1 cm soft tissue nodule. Recommend follow-up PET imaging or CT-guided biopsy. No acute finding to suggest pneumonia. Assessment & Plan - Diagnosis (1) Pulmonary nodule Is this a current diagnosis for this admission?: Yes Plan: F/u in 1 week on tuesday, set up PET for next tuesday, decide next step based on PET. If PET+ family will likely want pt to be w/u and rx in [place] close to daughter
[2018-04-26] MEDS: BUDESONIDE NEB 0.5 MG/2 ML AMPUL NEB SCH (08:24)
[2018-04-26] MEDS ORDERED: ONDANSETRON HCL INJ/PF 4 MG/2 ML SDV ONE (08:28)
[2018-04-26 08:50] VITALS: BP 142/97
--- NOTE | 2018-04-26 09:52 | PDOC DISCHARGE SUMMARY ---
General - Admit/Disc Date/PCP Admission Date/Primary Care Provider: 04/21/18 18:31 LAYNE CAIN MD Discharge Date: 04/26/18 - Discharge Diagnosis (1) Acute exacerbation of chronic obstructive pulmonary disease (COPD) Is this a current diagnosis for this admission?: Yes Summary: Currently all stable (2) Pulmonary nodule Is this a current diagnosis for this admission?: Yes Summary: Follow outpatients oncology for a PET scan (3) Tobacco abuse Is this a current diagnosis for this admission?: Yes Summary: Patient was put on the Chantix - Additional Information Resuscitation Status: Full Code Discharge Diet: Regular Discharge Activity: Activity As Tolerated Prescriptions: Benzonatate [Tessalon Perles 100 mg Capsule] 100 mg PO TID #21 capsule Budesonide [Pulmicort Neb 0.5 mg/2 ml Ampul] 0.5 mg NEB RTQ12 #60 ampul.neb Ipratropium/Albuterol Sulfate [Duoneb 3 ml Ampul] 3 ml NEB RTQ4 PRN #120 vial.neb PRN Reason: Nebulizer [Compact Compressor Nebulizer] 1 each MC ASDIR PRN #1 each PRN Reason: Prednisone [Deltasone 20 mg Tablet] 20 mg PO DAILY #5 tablet Varenicline Tartrate [Chantix 0.5 mg Tablet] 0.5 mg PO BID #60 tablet Home Medications: Albuterol Sulfate [Proair HFA Inhalation Aerosol 8.5 gm MDI] 2 puff IH Q6HP PRN 04/21/18 Benzonatate [Tessalon Perle 100 mg Capsule] 100 mg PO TIDP PRN 04/21/18 Cholecalciferol (Vitamin D3) [Vitamin D3 1000 Unit Tablet] 1,000 unit PO DAILY 04/21/18 Hydrochlorothiazide [Hydrodiuril 25 mg Tablet] 25 mg PO DAILY 04/21/18 Omeprazole 40 mg PO DAILY 04/21/18 Umeclidinium Brm/Vilanterol Tr [Anoro Ellipta 62.5-25 Mcg INH] 1 puff IH QAM Benzonatate [Tessalon Perles 100 mg Capsule] 100 mg PO TID #21 capsule 04/26/18 Budesonide [Pulmicort Neb 0.5 mg/2 ml Ampul] 0.5 mg NEB RTQ12 #60 ampul.neb 10/07 Ipratropium/Albuterol Sulfate [Duoneb 3 ml Ampul] 3 ml NEB RTQ4 PRN #120 vial.[facility] 04/26/18 Nebulizer [Compact Compressor Nebulizer] 1 each ASDIR PRN #1 each 04/26/18 Prednisone [Deltasone 20 mg Tablet] 20 mg PO DAILY #5 tablet 04/26/18 Varenicline Tartrate [Chantix 0.5 mg Tablet] 0.5 mg PO BID #60 tablet 04/26/18 History of Present Illness History of Present Illness: AMELIA AUSTIN is a 63 year old female For the hospital for the COPD acute exacerbation in a patient [place] pulmonary nodules Hospital Course Hospital Course: This is a 63-year-old female with a significant history of the COPD and a chronic smoker came to the emergency department with the complaint of the shortness of the breath and hypoxia and patient's also found the pulmonary nodules Patient was treated with the IV steroids and IV antibiotics and nebulizer treatment patient responds very well Patient was switched to the p.o. steroids and p.o. medications Patient responds very well with the treatments and wean off from the oxygen Patient seen by the oncology and suggest to follow outpatients path scans Patient is otherwise back to the baseline seen by Dr. Lovett Discussed with the patient and the family on the bedside regarding the patient' s current conditions with discuss about the smoking counseling patient was put on a Chantix follow outpatient by pulmonary for the pet scans and follow up in office in 1 week Physical Exam Vital Signs: Temp Pulse Resp BP Pulse Ox 98.7 F 79 15 142/97 H 94 04/26/18 08:48 04/26/18 08:48 04/26/18 08:48 04/26/18 08:48 04/26/18 08:48 Intake & Output 04/25/18 04/26/18 04/27/18 06:59 06:59 06:59 Intake Total 2454 1330 Output Total 500 Balance 1954 1330 Weight 46.7 kg 46.6 kg General appearance: PRESENT: no acute distress, well-developed, well-nourished Head exam: PRESENT: atraumatic, normocephalic Eye exam: PRESENT: conjunctiva pink, EOMI, PERRLA. ABSENT: scleral icterus Ear exam: PRESENT: normal external ear exam Mouth exam: PRESENT: moist, tongue midline Neck exam: PRESENT: full ROM. ABSENT: carotid bruit, JVD, lymphadenopathy, thyromegaly Respiratory exam: PRESENT: clear to auscultation pool Cardiovascular exam: PRESENT: RRR. ABSENT: diastolic murmur, rubs, systolic murmur Pulses: PRESENT: normal dorsalis pedis pul, +2 pedal pulses bilateral Vascular exam: PRESENT: normal capillary refill GI/Abdominal exam: PRESENT: normal bowel sounds, soft. ABSENT: distended, guarding, mass, organolmegaly, rebound, tenderness Rectal exam: PRESENT: deferred Extremities exam: ABSENT: pedal edema Musculoskeletal exam: PRESENT: ambulatory Neurological exam: PRESENT: alert, awake, oriented to person, oriented to place , oriented to time, oriented to situation, CN II-XII grossly intact. ABSENT: motor sensory deficit Psychiatric exam: PRESENT: appropriate affect, normal mood. ABSENT: homicidal ideation, suicidal ideation Skin exam: PRESENT: dry, intact, warm. ABSENT: cyanosis, rash Results Laboratory Results: 04/25/18 04:39 04/26/18 04:25 04/26/18 04:25 Sodium 138.8 Potassium 4.2 Chloride 93 L Carbon Dioxide 32 H Anion Gap 14 BUN 24 H Creatinine 0.57 Est GFR ( Amer) > 60 Est GFR (Non-Af Amer) > 60 Glucose 99 Calcium 10.0 04/21/18 04/21/18 04/22/18 20:10 20:10 02:09 Creatine Kinase 91 119 CK-MB (CK-2) 0.90 Troponin I < 0.012 04/22/18 04/22/18 04/22/18 02:09 08:41 08:41 Creatine Kinase 155 H CK-MB (CK-2) 1.36 1.65 Troponin I < 0.012 < 0.012 Impressions: Chest CT 04/22/18 00:00 IMPRESSION: Left lower lobe new 1.1 cm soft tissue nodule. Recommend follow-up PET imaging or CT-guided biopsy. No acute finding to suggest pneumonia. Qualifiers - * PATIENT BEING DISCHARGED WITH ANY OF THE FOLLOWING DIAGNOSIS: No VTE patient discharged on overlapping Therapy?: Yes Plan Time Spent: Greater than 30 Minutes - discharge with a stable condition was discussed with the patient and the family Follow outpatient oncology and pulmonary
== END 2018-04-26 10:18 | disposition home or self-care (01) | DRG 192 ==
LOC: ER 14:44 → EH 18:31 → 3N 21:35
PROVIDERS: ADMIT Family Medicine; ATTEND Family Medicine
PROC: 3E0F73Z Introduction of Anti-inflammatory into Respiratory Tract, Via Natural or Artificial Opening (ICD-10-PCS; principal; 2018-04-22)
DX: J44.1 Chronic obstructive pulmonary disease with (acute) exacerbation (principal); R91.1 Solitary pulmonary nodule; F17.210 Nicotine dependence, cigarettes, uncomplicated; I10 Essential (primary) hypertension; K21.9 Gastro-esophageal reflux disease without esophagitis; F12.10 Cannabis abuse, uncomplicated; Z98.51 Tubal ligation status; Z82.49 Family history of ischemic heart disease and other diseases of the circulatory system; Z80.9 Family history of malignant neoplasm, unspecified; Z79.51 Long term (current) use of inhaled steroids
CPT/HCPCS: 36415; 71045; 71260; 80048; 80053; 80061; 80076; 80307; 81001; 82140; 82150; 82550; 82553; 82803; 83036; 83690; 83735; 83880; 84100; 84439; 84443; 84484; 85025; 85610; 85730; 87040; 87086; 94640; 96365; 96366; 96375; 99291; J0456; J1650; J2930; J3475; J7030; J7060; J7512; J7620

== ENCOUNTER → 2018-05-07 | Outpatient (CLI) | payer OTHER ==
--- NOTE | 2018-05-08 09:03 | RADIOLOGY REPORT (SQ) ---
EXAM DESCRIPTION: PET CT SKULL/THIGH COMPLETED DATE/TIME: 05/07/2018 9:00 pm REASON FOR STUDY: PULMONARY NODULE R91.1 SOLITARY PULMONARY NODULE COMPARISON: CT chest abdomen pelvis 08/03/2017 CT chest 04/22/2018, 07/21/2016 CT abdomen pelvis 05/20/2015 RADIONUCLIDE AND DOSE: 87 mCi F18 FDG The route of agent administration: Intravenous FASTING BLOOD SUGAR: 10.8 mg/dl CONTRAST TYPE AND DOSE: No CT contrast given. TECHNIQUE: Blood glucose level was verified. Above dose of FDG was injected intravenously. 2-D seg mented attenuation correction images were obtained from the base of the skull to the midthighs. Nonc ontrast CT images were obtained for attenuation correction and fusion with emission images. CT image s were performed without oral or intravenous contrast and are not sensitive for parenchymal lesions. A series of overlapping emission PET images were obtained. Images reviewed and manipulated at [facility] work station by the radiologist. Images stored on PACS. LIMITATIONS: None. FINDINGS: HEAD AND NECK: No areas of abnormal metabolic activity in the soft tissues of the head and neck. CHEST: A 13 mm spiculated nodule is present in the left lower lobe on axial image 100, with SUV of 3. 5. A 1 cm left hilar node is present, with SUV of 7.2. ABDOMEN AND PELVIS: No areas of abnormal metabolic activity in the abdomen or pelvis. Expected physi ologic activity is present in the genitourinary system and bowel. PROXIMAL LOWER EXTREMITIES: No areas of abnormal metabolic activity in the soft tissues of the lower extremities. BONES: No abnormal metabolic activity in the visualized skeleton. ADDITIONAL CT FINDINGS: Thoracic/lumbar scoliosis OTHER: Blood pool background activity 1.4 SUV. Liver background activity 1.9 SUV IMPRESSION: Malignant left lower lobe nodule with hypermetabolic left lower hilar lymph node TECHNICAL DOCUMENTATION: JOB ID: [id number] [employer]- All Rights Reserved Reading location - IP/workstation name: [email or web address]
== END ==
LOC: RAD 16:24
PROVIDERS: ATTEND Internal Medicine
DX: R91.1 Solitary pulmonary nodule (principal)
CPT/HCPCS: 78815; A9552

== ENCOUNTER 2018-07-11 09:10 | Day surgery (SDC) | payer OTHER ==
[~2018-07-11 09:10] MED LIST changes: +CEFAZOLIN 1 GM/D5W RTU 1 GM/50 ML RTUPB IV PRN; +DIAZEPAM 5 MG TABLET PO PRN; -LIDOCAINE 2% JELLY 30 ML TUBE ONE; -ONDANSETRON HCL INJ/PF 4 MG/2 ML SDV ONE; +OXYCODONE-ACETAMINOPHEN 5-325 MG TABLET PO PRN
[2018-07-11] MEDS ORDERED: CEFAZOLIN 1 GM/D5W RTU 1 GM/50 ML RTUPB IV ONE (09:53)
[2018-07-11] MEDS ORDERED: OXYCODONE-ACETAMINOPHEN 5-325 MG TABLET ONE (09:54)
[2018-07-11] MEDS ORDERED: DIAZEPAM 5 MG TABLET ONE (09:55)
--- NOTE | 2018-07-11 09:58 | RADIOLOGY REPORT (SQ) ---
EXAM DESCRIPTION: CHEST SINGLE VIEW COMPLETED DATE/TIME: 07/11/2018 9:50 am REASON FOR STUDY: PREOP C34.32 MALIGNANT NEOPLASM OF LOWER LOBE, LEFT BRONCHUS OR BURTON COMPARISON: 04/21/2018. NUMBER OF VIEWS: One view. TECHNIQUE: Single frontal radiographic view of the chest acquired. LIMITATIONS: None. FINDINGS: LUNGS AND PLEURA: No opacities, masses or pneumothorax. No pleural effusion. Attenuated bl ood vessels and flattened stacey-diaphragms. MEDIASTINUM AND HILAR STRUCTURES: No masses. Contour normal. HEART AND VASCULAR STRUCTURES: Heart normal in size. Normal vasculature. BONES: Chronic scoliosis. No acute findings. HARDWARE: None in the chest. OTHER: No other significant finding. IMPRESSION: COPD. NO ACUTE RADIOGRAPHIC FINDING IN THE CHEST. TECHNICAL DOCUMENTATION: JOB ID: [id number] [employer]- All Rights Reserved Reading location - IP/workstation name: [email or web address]
[2018-07-11 10:25] LABS: HEMATOCRIT 37.4 % (36.0-47.0); HEMOGLOBIN 12.8 g/dL (12.0-15.5); MEAN CORPUSCULAR HEMOGLOBIN 31.4 pg (27.0-33.4); MEAN CORPUSCULAR HGB CONC 34.2 g/dL (32.0-36.0); MEAN CORPUSCULAR VOLUME 92 fl (80-97); PLATELET COUNT 271 10^3/uL (150-450); RED BLOOD COUNT 4.07 10^6/uL (3.72-5.28); RED CELL DISTRIBUTION WIDTH 14.5 % (11.5-14.0); WHITE BLOOD COUNT 5.5 10^3/uL (4.0-10.5)
[2018-07-11 10:47] LABS: ANION GAP 9 (5-19); BLOOD UREA NITROGEN 16 mg/dL (7-20); CALCIUM 9.9 mg/dL (8.4-10.2); CARBON DIOXIDE 31 mmol/L (22-30); CHLORIDE 101 mmol/L (98-107); GLUCOSE 95 mg/dL (75-110); POTASSIUM 4.4 mmol/L (3.6-5.0); SODIUM 140.6 mmol/L (137-145)
[2018-07-11] MEDS ORDERED: LIDOCAINE 0.5% INJ-PF (5 MG/ML) 50 ML SDV ONE (11:00)
[2018-07-11] MEDS ORDERED: FENTANYL CITRATE INJ/PF 100 MCG/2 ML AMPUL ONE (12:16)
[2018-07-11] MEDS ORDERED: BACITRACIN INJ 50,000 UNIT VIAL ONE (12:16)
[2018-07-11] MEDS ORDERED: MIDAZOLAM 2 MG/2 ML INJ ONE (12:16)
--- NOTE | 2018-07-11 13:48 | Discharge Summary ---
Discharge Summary (SDC) - Discharge Final Diagnosis: Lung cancer. Date of Surgery: 07/11/18 Discharge Date: 07/11/18 Condition: Fair Treatment or Instructions: Discharge home [after recovery per ASU criteria]. Diet , as tolerated, when fully awake advance as tolerated. Activities within moderation encouraged. Follow up in my office by appointment in about [1 week]. Call for appointment. Leave wounds [covered], [keep clean and dry, until office visit in 1 week]. Hold of on school/work [until evaluation in office]. Meds per med rec. Percocet. May shower [in 48 hrs], [try to keep operated area as dry as possible]. Prescriptions: Oxycodone HCl/Acetaminophen [Percocet 5-325 mg Tablet] 1 tab PO ASDIR PRN #15 tab PRN Reason: Referrals: LAYNE CAIN MD [Primary Care Provider] - Discharge Diet: As Tolerated Respiratory Treatments at Home: Deep Breathing/Coughing Discharge Activity: Activity As Tolerated Report the Following to Your Physician Immediately: Shortness of Breath, Unusual Bleeding
--- NOTE | 2018-07-11 13:50 | Operative Report ---
Operative Report DATE OF SURGERY: 07/11/18 PREOPERATIVE DIAGNOSIS: Lung cancer. POSTOPERATIVE DIAGNOSIS: Lung cancer. OPERATION: 1. Ultrasound evaluation of the right internal jugular vein. 2. Insertion of Port-A-Cath via real-time access in the right internal jugular vein. 3. Angiogram and interpretation. SURGEON: NICOLLE JULIEN DRUPAL ARCHITECT: None. ANESTHESIA: Moderate Sedation TISSUE REMOVED OR ALTERED: Not applicable. COMPLICATIONS: None. ESTIMATED BLOOD LOSS: 5 mL. INTRAOPERATIVE FINDINGS: Of a satisfactory right internal jugular vein to support catheter. Estimated to be about 1.5 cm in diameter. Easy egress of blood and ingress of heparinized solution. Chest x-ray demonstrates satisfactory position of catheter. Angiogram demonstrates smooth flow of contrast through the right atrium, ventricle and pulmonary tract. The distal portion of the catheter is low down in the superior vena cava. PROCEDURE: After obtaining informed consent, the patient was taken to the Board Of Directors and positioned supine. The [right] neck and chest were prepared with chlorhexidine and draped out with sterile linen. After the " universal timeout", in which it was verified that the patient continued to receive antibiotic, the procedure commenced. A steriley sheathed ultrasound probe was used to evaluate the [right] internal jugular vein. Local anesthesia was infiltrated adjacent to the probe. Access into the [right] internal jugular vein was obtained using a micropuncture needle, followed by micropuncture wire and then a micropuncture catheter. This was followed by introduction of a 0.035 guidewire the tip of which was placed down into the inferior vena cava . The port sites was marked , locally anesthetized and incision made. Dissection now proceeded to the deep subcutaneous subcutaneous tissues so that a pocket for the port was made. Meticulous hemostasis was secured and the catheter was tunneled between the 2 incisions. Proximally, the catheter was now positioned using a peel-away sheath. Distally the catheter was tailored to an appropriate length and then mated to the port using the contained fixating device. The port was now placed in the pocket and the catheter optimally positioned. The port was accessed with a Guzmán needle and an angiogram done under digital subtraction. The findings as dictated. With adequate and satisfactory positioning, the lumen of the chamber were irrigated with heparinized solution. The wounds were now closed using interrupted 3-0 PDS to the subcutaneous tissues and a continuous subcuticular suture of 4-0 Monocryl to the skin. These are reinforced with Steri-Strips over benzoin and then dressings applied. Time: 0.4 minute. Dose: 6.45 m Gy Contrast: 5 Mls. Isovue 300. Copies of the dictated operative report for Dr. Nicolle Robledo MD.
[2018-07-11 15:31] VITALS: BP 133/96
--- NOTE | 2018-07-11 15:53 | RADIOLOGY REPORT (SQ) ---
EXAM DESCRIPTION: PORTACATH INSERTION COMPLETED DATE/TIME: 07/11/2018 3:17 pm REASON FOR STUDY: C34.32 LT LUNG CA C34.32 MALIGNANT NEOPLASM OF LOWER LOBE, LEFT BRONCHUS OR BURTON COMPARISON: None. FLUOROSCOPY TIME: 0.4 minute. 22 images saved to PACS. TECHNIQUE: Intra-operative images acquired during surgical procedure to evaluate progress. NUMBER OF IMAGES: 22 images. LIMITATIONS: None. FINDINGS: Images of the chest acquired during catheter placement. IMPRESSION: IMAGE(S) OBTAINED DURING PROCEDURE. COMMENT: Quality ID [id number]: Final reports for procedures using fluoroscopy that document radiation exp osure indices, or exposure time and number of fluorographic images (if radiation exposure indices are not available) Please consult full operative report of the attending physician for description of the procedure. TECHNICAL DOCUMENTATION: JOB ID: [id number] [employer]- All Rights Reserved Reading location - IP/workstation name: [email or web address]
== END 2018-07-11 15:10 | disposition home or self-care (01) ==
LOC: CCL 09:10
PROVIDERS: ATTEND Surgery
DX: C34.32 Malignant neoplasm of lower lobe, left bronchus or lung (principal); Z87.891 Personal history of nicotine dependence; Z79.899 Other long term (current) drug therapy; Z79.51 Long term (current) use of inhaled steroids; Z01.818 Encounter for other preprocedural examination
CPT/HCPCS: 36415; 85027; 80048; 36561; 76937; 77001; 71045; C1752; C1788; Q9967; J2250; J3490 ×2; J0690; J3010; J1644

== ENCOUNTER 2018-08-02 10:02 | Outpatient (CLI) | payer OTHER ==
[~2018-08-02 10:02] MED LIST changes: +CARBOPLATIN IV PRN; -CEFAZOLIN 1 GM/D5W RTU 1 GM/50 ML RTUPB IV PRN; +DEXAMETHASONE SOD PHOSPHATE 10 MG in NORMAL SALINE 50 ML IV PRN; -DIAZEPAM 5 MG TABLET PO PRN; +DIPHENHYDRAMINE HCL 50 MG in NORMAL SALINE 50 ML IV PRN; +FAMOTIDINE/PF 20 MG in NORMAL SALINE 50 ML IV PRN; +NORMAL SALINE 250 ML IV PRN; +NORMAL SALINE IV PRN; -OXYCODONE-ACETAMINOPHEN 5-325 MG TABLET PO PRN; +PACLITAXEL SEMI SYNTHETIC IV PRN; +PALONOSETRON 0.25 MG/5 ML SDV IV PRN
[2018-08-02 10:37] VITALS: BP 132/74
== END 2018-08-02 13:11 | disposition home or self-care (01) ==
LOC: II 10:02 → 5TH 10:27 → II 13:11
PROVIDERS: ATTEND Internal Medicine
PROC: 3E04305 Introduction of Other Antineoplastic into Central Vein, Percutaneous Approach (ICD-10-PCS; principal; 2018-08-02)
PROC: 3E0433Z Introduction of Anti-inflammatory into Central Vein, Percutaneous Approach (ICD-10-PCS; 2018-08-02)
PROC: 3E043GC Introduction of Other Therapeutic Substance into Central Vein, Percutaneous Approach (ICD-10-PCS; 2018-08-02)
DX: Z51.11 Encounter for antineoplastic chemotherapy (principal); C34.32 Malignant neoplasm of lower lobe, left bronchus or lung
CPT/HCPCS: 96413; 96415; 96367; 96374; 96375; 96360; 96417; J1200; J9045; J7050; J9267; S0028; J1100; J2469

== ENCOUNTER 2018-08-09 09:48 | Outpatient (CLI) | payer OTHER ==
[2018-08-09 10:29] VITALS: BP 112/77
== END 2018-08-09 13:19 | disposition home or self-care (01) ==
LOC: II 09:48 → 5TH 09:50 → II 13:19
PROVIDERS: ATTEND Internal Medicine
PROC: 3E04305 Introduction of Other Antineoplastic into Central Vein, Percutaneous Approach (ICD-10-PCS; principal; 2018-08-09)
PROC: 3E043GC Introduction of Other Therapeutic Substance into Central Vein, Percutaneous Approach (ICD-10-PCS; 2018-08-09)
PROC: 3E0433Z Introduction of Anti-inflammatory into Central Vein, Percutaneous Approach (ICD-10-PCS; 2018-08-09)
DX: Z51.11 Encounter for antineoplastic chemotherapy (principal); C34.32 Malignant neoplasm of lower lobe, left bronchus or lung
CPT/HCPCS: 96413; 96415; 96367; 96374; 96375; 96360; J1200; J9045; J7050; J9267; S0028; J1100; J2469; 96417

== ENCOUNTER 2018-08-16 09:35 | Outpatient (CLI) | payer OTHER ==
[2018-08-16 09:59] VITALS: BP 113/78
== END 2018-08-16 14:41 | disposition home or self-care (01) ==
LOC: II 09:35 → 5TH 09:38 → II 14:41
PROVIDERS: ATTEND Internal Medicine
PROC: 3E04305 Introduction of Other Antineoplastic into Central Vein, Percutaneous Approach (ICD-10-PCS; principal; 2018-08-16)
PROC: 3E0433Z Introduction of Anti-inflammatory into Central Vein, Percutaneous Approach (ICD-10-PCS; 2018-08-16)
PROC: 3E043GC Introduction of Other Therapeutic Substance into Central Vein, Percutaneous Approach (ICD-10-PCS; 2018-08-16)
DX: Z51.11 Encounter for antineoplastic chemotherapy (principal); C34.32 Malignant neoplasm of lower lobe, left bronchus or lung
CPT/HCPCS: 96415; 96367; 96374; 96375; 96360; 96417; J1200; J9045; J7050; J9267; S0028; J1100; J2469; 96413

== ENCOUNTER 2018-08-23 10:23 | Outpatient (CLI) | payer OTHER ==
[2018-08-23 10:45] VITALS: BP 106/69
== END 2018-08-23 15:03 | disposition home or self-care (01) ==
LOC: II 10:23 → 5TH 10:34 → II 15:03
PROVIDERS: ATTEND Internal Medicine
PROC: 3E04305 Introduction of Other Antineoplastic into Central Vein, Percutaneous Approach (ICD-10-PCS; principal; 2018-08-23)
PROC: 3E0433Z Introduction of Anti-inflammatory into Central Vein, Percutaneous Approach (ICD-10-PCS; 2018-08-23)
PROC: 3E043GC Introduction of Other Therapeutic Substance into Central Vein, Percutaneous Approach (ICD-10-PCS; 2018-08-23)
DX: Z51.11 Encounter for antineoplastic chemotherapy (principal); C34.32 Malignant neoplasm of lower lobe, left bronchus or lung
CPT/HCPCS: 96413; 96415; 96367; 96374; 96375; 96360; J1200; J9045; J7050; J9267; S0028; J1100; J2469; 96417

== ENCOUNTER 2018-08-30 10:30 | Outpatient (CLI) | payer OTHER ==
[2018-08-30 11:04] VITALS: BP 103/69
== END 2018-08-30 14:29 | disposition home or self-care (01) ==
LOC: II 10:30 → 5TH 12:29 → II 14:29
PROVIDERS: ATTEND Internal Medicine
PROC: 3E04305 Introduction of Other Antineoplastic into Central Vein, Percutaneous Approach (ICD-10-PCS; principal; 2018-08-30)
PROC: 3E0433Z Introduction of Anti-inflammatory into Central Vein, Percutaneous Approach (ICD-10-PCS; 2018-08-30)
PROC: 3E043GC Introduction of Other Therapeutic Substance into Central Vein, Percutaneous Approach (ICD-10-PCS; 2018-08-30)
DX: Z51.11 Encounter for antineoplastic chemotherapy (principal); C34.32 Malignant neoplasm of lower lobe, left bronchus or lung
CPT/HCPCS: 96413; 96415; 96367; 96374; J1200; J9045; J7050; J9267; S0028; J1100; J2469; 96375; 96417

== ENCOUNTER 2018-09-26 15:51 | Inpatient (IN) | payer OTHER ==
[2018-09-26] MEDS ORDERED: ACETAMINOPHEN 325 MG TABLET PO PRN (16:21)
[2018-09-26] MEDS ORDERED: NORMAL SALINE 1000 ML 1,000 ML IV PRN (16:34)
[2018-09-26] MEDS ORDERED: MAG HYDROX/AL HYDROX/SIMETH SUSP 30 ML UDCUP PO PRN (16:38)
[2018-09-26] MEDS ORDERED: ONDANSETRON HCL INJ/PF 4 MG/2 ML SDV IV PRN (16:38)
[2018-09-26] MEDS ORDERED: VANCOMYCIN HCL 0 MG in DEXTROSE 5%-WATER 250 ML IV NR (16:45)
--- NOTE | 2018-09-26 16:49 | PDOC H&P ---
History of Present Illness Admission Date/PCP: 09/26/18 15:51 LAYNE CAIN MD Patient complains of: Fever History of Present Illness: AMELIA AUSTIN is a 63 year old female This is a 63-year-old female's with a history of the COPD with a history of the stage III lung cancer recently getting the chemotherapy and the radiations the last 2 dose of the radiation's left and was starting the fever last week seen by the oncology start on Levaquin p.o. daily and IV fluid was given 2 days went to see her Dr. Marcos office and still running a fever and decided to admit in the hospital for further evaluation and treatments Patient's was neutropenic and pancytopenic according to the oncology patients CBC all get better Patients came to my office from oncology office for direct admissions patient is otherwise doing well except complaining of some mild cough and on and off fever since last 1 week Patient's appetite is very poor feeling nausea and vomiting Patient is denied any chest pain to than any shortness of the breath Patient is denied any abdominal pain Patient's looks little dehydrated patient's temperature was 99.4 in my office blood pressures remained stable Patient was as per discussed with oncology put on broad-spectrum IV antibiotic Past Medical History Cardiac Medical History: Reports: Hypertension Denies: Coronary Artery Disease, Myocardial Infarction Pulmonary Medical History: Reports: Chronic Obstructive Pulmonary Disease (COPD) Denies: Asthma, Bronchitis, Pneumonia Neurological Medical History: Denies: Seizures Endocrine Medical History: Denies: Hyperthyroidism, Hypothyroidism GI Medical History: Reports: Gastroesophageal Reflux Disease Denies: Crohn's Disease, Hepatitis, Ulcerative Colitis Musculoskeltal Medical History: Denies: Arthritis Skin Medical History: Denies: Psoriasis Traumatic Medical History: Denies: Traumatic Brain Injury Hematology: Denies: Anemia, Sickle Cell Disease Past Surgical History Past Surgical History: Reports: Tubal Ligation Denies: Hysterectomy Social History Information Source: Patient Smoking Status: Former Smoker Frequency of Alcohol Use: Rare Hx Recreational Drug Use: No Hx Prescription Drug Abuse: No Family History Family History: Reviewed & Not Pertinent, Hypertension, Malignancy Parental Family History Reviewed: Yes Children Family History Reviewed: Yes Sibling(s) Family History Reviewed.: Yes Medication/Allergy Allergies/Adverse Reactions: No Known Allergies Allergy (Verified 04/21/18 14:46) Review of Systems Constitutional: PRESENT: chills, fatigue, weakness. ABSENT: fever(s), headache(s), weight gain, weight loss Eyes: ABSENT: visual disturbances Ears: ABSENT: hearing changes Cardiovascular: ABSENT: chest pain, dyspnea on exertion, edema, orthropnea, palpitations Respiratory: PRESENT: cough. ABSENT: hemoptysis Gastrointestinal: PRESENT: nausea, vomiting. ABSENT: abdominal pain, constipation, diarrhea, hematemesis, hematochezia Genitourinary: ABSENT: dysuria, hematuria Musculoskeletal: ABSENT: joint swelling Integumentary: ABSENT: rash, wounds Neurological: ABSENT: abnormal gait, abnormal speech, confusion, dizziness, focal weakness, syncope Psychiatric: ABSENT: anxiety, depression, homidical ideation, suicidal ideation Endocrine: ABSENT: cold intolerance, heat intolerance, menstrual abnormalities, polydipsia, polyuria Hematologic/Lymphatic: ABSENT: easy bleeding, easy bruising, lymphadenopathy Physical Exam Vital Signs: Temp Pulse Resp BP Pulse Ox 99.0 F 98 16 109/81 95 09/26/18 16:14 09/26/18 16:27 09/26/18 16:14 09/26/18 16:14 09/26/18 16:14 Intake & Output 09/25/18 09/26/18 09/27/18 06:59 06:59 06:59 Weight 53.5 kg General appearance: PRESENT: no acute distress, well-developed, well-nourished Head exam: PRESENT: atraumatic, normocephalic Eye exam: PRESENT: conjunctiva pink, EOMI, PERRLA. ABSENT: scleral icterus Ear exam: PRESENT: normal external ear exam Mouth exam: PRESENT: moist, tongue midline Neck exam: PRESENT: full ROM. ABSENT: carotid bruit, JVD, lymphadenopathy, thyromegaly Respiratory exam: PRESENT: clear to auscultation pool Cardiovascular exam: PRESENT: RRR. ABSENT: diastolic murmur, rubs, systolic murmur Pulses: PRESENT: normal dorsalis pedis pul, +2 pedal pulses bilateral Vascular exam: PRESENT: normal capillary refill GI/Abdominal exam: PRESENT: normal bowel sounds, soft. ABSENT: distended, guarding, mass, organolmegaly, rebound, tenderness Rectal exam: PRESENT: deferred Extremities exam: ABSENT: pedal edema Musculoskeletal exam: PRESENT: ambulatory Neurological exam: PRESENT: alert, awake, oriented to person, oriented to place, oriented to time, oriented to situation, CN II-XII grossly intact. ABSENT: motor sensory deficit Psychiatric exam: PRESENT: appropriate affect, normal mood. ABSENT: homicidal ideation, suicidal ideation Skin exam: PRESENT: dry, intact, warm. ABSENT: cyanosis, rash Assessment & Plan - Diagnosis (1) Fever Qualifiers: Fever type: unspecified Qualified Code(s): R50.9 - Fever, unspecified Is this a current diagnosis for this admission?: Yes Plan: With the recent chemotherapy and radiations with a recent pancytopenic admit the patient's get the blood culture urine cultures sputum culture and also broad- spectrum IV antibiotic (2) Lung cancer Qualifiers: Lung location: unspecified part of lung Is this a current diagnosis for this admission?: Yes Plan: This post chemotherapy currently on radiations (3) COPD (chronic obstructive pulmonary disease) Qualifiers: COPD type: chronic bronchitis Is this a current diagnosis for this admission?: Yes Plan: on a nebulizer treatments (4) Nausea & vomiting Qualifiers: Vomiting type: unspecified Vomiting Intractability: non-intractable Qualified Code(s): R11.2 - Nausea with vomiting, unspecified Is this a current diagnosis for this admission?: Yes Plan: This post chemotherapy induced - Time Time Spent: 30 to 50 Minutes Medications reviewed and adjusted accordingly: Yes Anticipated discharge: Home Within: Other - Inpatient Certification Based on my medical assessment, after consideration of the patient's comorbidities, presenting symptoms, or acuity I expect that the services needed warrant INPATIENT care.: Yes I certify that my determination is in accordance with my understanding of Medicare's requirements for reasonable and necessary INPATIENT services [42 CFR 412.3e].: Yes Medical Necessity: Failure to Improve With Outpatient Therapy, Significant Comorbidiites Make Outpatient Treatment Too Risky, Need Close Monitoring Due to Risk of Patient Decompensation, Need For IV Fluids, Need for IV Antibiotics Post Hospital Care: D/C Hydropulper Operator Documentation - Plan Summary Plan Summary: Admit the patient in telemetry bed See MD orders
[2018-09-26] MEDS: NORMAL SALINE 1000 ML 1,000 ML IV PRN (17:23)
--- NOTE | 2018-09-26 18:00 | RADIOLOGY REPORT (SQ) ---
EXAM DESCRIPTION: CHEST SINGLE VIEW COMPLETED DATE/TIME: 09/26/2018 5:27 pm REASON FOR STUDY: Fever, Pneumonia COMPARISON: None. NUMBER OF VIEWS: One view. TECHNIQUE: Single frontal radiographic view of the chest acquired. LIMITATIONS: None. FINDINGS: LUNGS AND PLEURA: Subsegmental increased density left lower lobe. There is a background o f COPD. No effusions. MEDIASTINUM AND HILAR STRUCTURES: No masses. Contour normal. HEART AND VASCULAR STRUCTURES: Heart normal in size. Normal vasculature. BONES: No acute findings. HARDWARE: None in the chest. OTHER: Right-sided port tip overlying SVC. IMPRESSION: Atelectasis or early pneumonia left lower lobe. TECHNICAL DOCUMENTATION: JOB ID: [id number] [employer]- All Rights Reserved Reading location - IP/workstation name: [email or web address]
[2018-09-26] MEDS: PANTOPRAZOLE SODIUM 40 MG TABLET.DR PO SCH (18:20)
[2018-09-26 18:29] LABS: HEMATOCRIT 32.5 % (36.0-47.0); HEMOGLOBIN 11.1 g/dL (12.0-15.5); MEAN CORPUSCULAR HEMOGLOBIN 30.7 pg (27.0-33.4); MEAN CORPUSCULAR HGB CONC 34.3 g/dL (32.0-36.0); MEAN CORPUSCULAR VOLUME 90 fl (80-97); RED BLOOD COUNT 3.63 10^6/uL (3.72-5.28); RED CELL DISTRIBUTION WIDTH 16.7 % (11.5-14.0); WHITE BLOOD COUNT 4.5 10^3/uL (4.0-10.5)
[2018-09-26 18:54] LABS: ALANINE AMINOTRANSFERASE 25 U/L (9-52); ALBUMIN 4.6 g/dL (3.5-5.0); ALKALINE PHOSPHATASE 120 U/L (38-126); ASPARTATE AMINO TRANSFERASE 28 U/L (14-36); BILIRUBIN,DIRECT 0.4 mg/dL (0.0-0.4); BILIRUBIN,TOTAL 0.7 mg/dL (0.2-1.3); BLOOD UREA NITROGEN 16 mg/dL (7-20); CALCIUM 10.1 mg/dL (8.4-10.2); GLUCOSE 104 mg/dL (75-110); POTASSIUM 3.6 mmol/L (3.6-5.0); TOTAL PROTEIN 7.4 g/dL (6.3-8.2)
[2018-09-26 18:59] LABS: ANION GAP 19 (5-19); CARBON DIOXIDE 26 mmol/L (22-30); CHLORIDE 91 mmol/L (98-107); SODIUM 136.4 mmol/L (137-145)
[2018-09-26 19:07] LABS: ABSOLUTE LYMPHOCYTES# (MANUAL) 0.3 10^3/uL (0.5-4.7); ABSOLUTE NEUTROPHILS# (MANUAL) 3.2 10^3/uL (1.7-8.2); BASOPHILS % (MANUAL) 1 % (0-2); EOSINOPHILS % (MANUAL) 0 % (0-6); LYMPHOCYTES % (MANUAL) 4 % (13-45); METAMYELOCYTES % (MANUAL) 2 % (0); MONOCYTES % (MANUAL) 22 % (3-13); SEGMENTED NEUTROPHILS % (MAN) 67 % (42-78); TOTAL CELLS COUNTED 100
[2018-09-26 19:08] LABS: ANISOCYTOSIS 1+; POIKILOCYTOSIS SLIGHT; POLYCHROMASIA 1+
[2018-09-26 19:09] LABS: MYELOCYTES % (MANUAL) 2 % (0); PLATELET CLUMPS PRESENT; PLATELET COUNT 411 10^3/uL (150-450); TEAR DROP CELLS SLIGHT
[2018-09-26 19:10] LABS: PLATELET COMMENT ADEQUATE
[2018-09-26] MEDS ORDERED: VANCOMYCIN HCL 750 MG in DEXTROSE 5%-WATER 250 ML IV SCH (20:30)
[2018-09-26] MEDS ORDERED: CEFEPIME HCL 2 GM in DEXTROSE 5%-WATER 50 ML IV ONE (20:30)
[2018-09-26] MEDS: IPRATROPIUM/ALBUTEROL 0.5-2.5 MG/3 ML AMPUL NEB SCH (21:16)
[2018-09-27] MEDS: IPRATROPIUM/ALBUTEROL 0.5-2.5 MG/3 ML AMPUL NEB SCH ×4 (01:54→20:55)
[2018-09-27 05:10] LABS: HEMATOCRIT 28.3 % (36.0-47.0); HEMOGLOBIN 9.8 g/dL (12.0-15.5); MEAN CORPUSCULAR HGB CONC 34.6 g/dL (32.0-36.0); MEAN CORPUSCULAR VOLUME 90 fl (80-97); RED BLOOD COUNT 3.16 10^6/uL (3.72-5.28); RED CELL DISTRIBUTION WIDTH 16.2 % (11.5-14.0); WHITE BLOOD COUNT 4.4 10^3/uL (4.0-10.5)
[2018-09-27 05:33] LABS: ABSOLUTE LYMPHOCYTES# (MANUAL) 0.4 10^3/uL (0.5-4.7); ABSOLUTE MONOCYTES # (MANUAL) 1.1 10^3/uL (0.1-1.4); ABSOLUTE NEUTROPHILS# (MANUAL) 2.9 10^3/uL (1.7-8.2); BASOPHILS % (MANUAL) 0 % (0-2); EOSINOPHILS % (MANUAL) 2 % (0-6); LYMPHOCYTES % (MANUAL) 8 % (13-45); MONOCYTES % (MANUAL) 24 % (3-13); SEGMENTED NEUTROPHILS % (MAN) 66 % (42-78); TOTAL CELLS COUNTED 100
[2018-09-27 05:36] LABS: ANISOCYTOSIS 1+; PLATELET CLUMPS PRESENT; PLATELET COMMENT ADEQUATE; STOMATOCYTES SLIGHT
[2018-09-27 05:37] LABS: PLATELET COUNT 359 10^3/uL (150-450)
[2018-09-27] MEDS: PANTOPRAZOLE SODIUM 40 MG TABLET.DR PO SCH ×2 (06:06→18:49)
[2018-09-27 06:27] LABS: ANION GAP 14 (5-19); BLOOD UREA NITROGEN 13 mg/dL (7-20); CARBON DIOXIDE 26 mmol/L (22-30); CHLORIDE 96 mmol/L (98-107); GLUCOSE 101 mg/dL (75-110); POTASSIUM 3.3 mmol/L (3.6-5.0); SODIUM 135.8 mmol/L (137-145)
[2018-09-27] MEDS ORDERED: POTASSIUM CHLORIDE 10 MEQ CAPSULE.ER PO ONE (07:30)
--- NOTE | 2018-09-27 08:20 | PDOC CONSULTATION ---
Consultation Consult Date: 09/27/18 Attending physician:: LAYNE CAIN Consult reason:: Patient admitted from my office, by Dr. Cain for consideration of sepsis, upper respiratory tract infection, fevers in the setting of stage III lung cancer on concurrent chemoradiation History of Present Illness Admission Date/PCP: 09/26/18 15:51 LAYNE CAIN MD Patient complains of: Fever persistent, chills, nausea vomiting, cough History of Present Illness: AMELIA AUSTIN is a 63 year old female with known history of stage III lung cancer, was not a resection candidate given her poor lung function, we were giving her concurrent chemoradiation and she was on her last 2 weeks of that. Last week she presented to our office with fever of 101, chills for 24 hours, cough and URI symptomatology, we gave her 1 L IV fluids as well as IV ceftriaxone and placed her on a 7-day course of oral Levaquin. She came back after that with lower but persistent fevers, chills and aches and nausea and vomiting that was persistent. She was unable to keep anything down. Therefore we admitted her for further work-up and treatment. Currently urine cultures and blood cultures are pending, patient was tachycardic and hypotensive upon admission, now she is doing better. She is been afebrile for about 12 hours now. She looks much better today. Past Medical History Cardiac Medical History: Reports: Hypertension Denies: Coronary Artery Disease, Myocardial Infarction Pulmonary Medical History: Reports: Chronic Obstructive Pulmonary Disease (COPD) Denies: Asthma, Bronchitis, Pneumonia Neurological Medical History: Denies: Seizures Endocrine Medical History: Denies: Hyperthyroidism, Hypothyroidism GI Medical History: Reports: Gastroesophageal Reflux Disease Denies: Crohn's Disease, Hepatitis, Ulcerative Colitis Musculoskeltal Medical History: Denies: Arthritis Skin Medical History: Denies: Psoriasis Traumatic Medical History: Denies: Traumatic Brain Injury Hematology: Denies: Anemia, Sickle Cell Disease Past Surgical History Past Surgical History: Reports: Tubal Ligation Denies: Hysterectomy Social History Information Source: Patient Smoking Status: Former Smoker Last Time Smoked: 04/19/18 Frequency of Alcohol Use: Rare Hx Recreational Drug Use: No Hx Prescription Drug Abuse: No - Advance Directive Resuscitation Status: Full Code Family History Family History: Reviewed & Not Pertinent, Hypertension, Malignancy Parental Family History Reviewed: Yes Children Family History Reviewed: Yes Sibling(s) Family History Reviewed.: Yes Medication/Allergy Home Medications: Albuterol Sulfate [Proair HFA Inhalation Aerosol 8.5 gm MDI] 2 puff IH Q6HP PRN 09/26/18 Budesonide [Pulmicort Neb 0.5 mg/2 ml Ampul] 0.5 mg IH DAILY 09/26/18 Budesonide/Formoterol Fumarate [Symbicort HFA 160-4.5 mcg Inhaler 6 gm] 2 puff IH BID 09/26/18 Cholecalciferol (Vitamin D3) [Vitamin D3 1000 Unit Tablet] 1,000 unit PO DAILY 09/26/18 Hydrochlorothiazide [Hydrodiuril 25 mg Tablet] 25 mg PO DAILY 09/26/18 Ipratropium/Albuterol Sulfate [Duoneb 3 ml Ampul] 3 ml PO Q8 09/26/18 Omeprazole 40 mg PO DAILY 09/26/18 Ondansetron HCl [Zofran 8 mg Tablet] 8 mg PO Q8HP PRN 09/26/18 Promethazine HCl [Phenergan 25 mg Tablet] 25 mg PO Q6HP PRN 09/26/18 Umeclidinium Brm/Vilanterol Tr [Anoro Ellipta 62.5-25 Mcg INH] 1 puff IH DAILY 09/26/18 Allergies/Adverse Reactions: No Known Allergies Allergy (Verified 04/21/18 14:46) Review of Systems Constitutional: ABSENT: chills, fever(s), headache(s), weight gain, weight loss Eyes: ABSENT: visual disturbances Ears: ABSENT: hearing changes Cardiovascular: ABSENT: chest pain, dyspnea on exertion, edema, orthropnea, palpitations Respiratory: ABSENT: cough, hemoptysis Gastrointestinal: ABSENT: abdominal pain, constipation, diarrhea, hematemesis, hematochezia, nausea, vomiting Genitourinary: ABSENT: dysuria, hematuria Musculoskeletal: ABSENT: joint swelling Integumentary: ABSENT: rash, wounds Neurological: ABSENT: abnormal gait, abnormal speech, confusion, dizziness, focal weakness, syncope Psychiatric: ABSENT: anxiety, depression, homidical ideation, suicidal ideation Endocrine: ABSENT: cold intolerance, heat intolerance, polydipsia, polyuria Hematologic/Lymphatic: ABSENT: easy bleeding, easy bruising Physical Exam Vital Signs: Temp Pulse Resp BP Pulse Ox 97.9 F 92 17 91/65 L 93 09/27/18 04:00 09/27/18 07:00 09/27/18 04:00 09/27/18 04:00 09/27/18 04:00 Intake & Output 09/26/18 09/27/18 09/28/18 06:59 06:59 06:59 Intake Total 300 Balance 300 Weight 53.4 kg General appearance: PRESENT: no acute distress, well-developed, well-nourished Head exam: PRESENT: atraumatic, normocephalic Eye exam: PRESENT: conjunctiva pink, EOMI, PERRLA. ABSENT: scleral icterus Ear exam: PRESENT: normal external ear exam Mouth exam: PRESENT: moist, tongue midline Neck exam: ABSENT: carotid bruit, JVD, lymphadenopathy, thyromegaly Respiratory exam: PRESENT: clear to auscultation pool. ABSENT: rales, rhonchi, wheezes Cardiovascular exam: PRESENT: RRR. ABSENT: diastolic murmur, rubs, systolic murmur Pulses: PRESENT: normal dorsalis pedis pul Vascular exam: PRESENT: normal capillary refill GI/Abdominal exam: PRESENT: normal bowel sounds, soft. ABSENT: distended, guarding, mass, organolmegaly, rebound, tenderness Rectal exam: PRESENT: deferred Extremities exam: PRESENT: full ROM. ABSENT: calf tenderness, clubbing, pedal edema Neurological exam: PRESENT: alert, awake, oriented to person, oriented to place, oriented to time, oriented to situation, CN II-XII grossly intact. ABSENT: motor sensory deficit Psychiatric exam: PRESENT: appropriate affect, normal mood. ABSENT: homicidal ideation, suicidal ideation Skin exam: PRESENT: dry, intact, warm. ABSENT: cyanosis, rash Results Laboratory Results: 09/27/18 04:29 09/27/18 04:29 09/26/18 09/26/18 09/27/18 17:38 17:38 04:29 WBC 4.5 4.4 RBC 3.63 L 3.16 L Hgb 11.1 L 9.8 L Hct 32.5 L 28.3 L MCV 90 90 MCH 30.7 31.0 MCHC 34.3 34.6 RDW 16.7 H 16.2 H Plt Count 411 359 Seg Neutrophils % Not Reportable Not Reportable Lymphocytes % Not Reportable Not Reportable Monocytes % Not Reportable Not Reportable Eosinophils % Not Reportable Not Reportable Basophils % Not Reportable Not Reportable Absolute Neutrophils Not Reportable Not Reportable Absolute Lymphocytes Not Reportable Not Reportable Absolute Monocytes Not Reportable Not Reportable Absolute Eosinophils Not Reportable Not Reportable Absolute Basophils Not Reportable Not Reportable Sodium 136.4 L Potassium 3.6 Chloride 91 L Carbon Dioxide 26 Anion Gap 19 BUN 16 Creatinine 1.17 Est GFR ( Amer) 56 L Est GFR (Non-Af Amer) 47 L Glucose 104 Calcium 10.1 Total Bilirubin 0.7 AST 28 ALT 25 Alkaline Phosphatase 120 Total Protein 7.4 Albumin 4.6 09/27/18 04:29 WBC RBC Hgb Hct MCV MCH MCHC RDW Plt Count Seg Neutrophils % Lymphocytes % Monocytes % Eosinophils % Basophils % Absolute Neutrophils Absolute Lymphocytes Absolute Monocytes Absolute Eosinophils Absolute Basophils Sodium 135.8 L Potassium 3.3 L Chloride 96 L Carbon Dioxide 26 Anion Gap 14 BUN 13 Creatinine 0.85 Est GFR ( Amer) > 60 Est GFR (Non-Af Amer) > 60 Glucose 101 Calcium 9.0 Total Bilirubin AST ALT Alkaline Phosphatase Total Protein Albumin Impressions: Chest X-Ray 09/26/18 00:00 IMPRESSION: Atelectasis or early pneumonia left lower lobe. Assessment & Plan - Diagnosis (1) SIRS (systemic inflammatory response syndrome) Is this a current diagnosis for this admission?: Yes Plan: Previous Sirs, now seems resolved, continue with broad-spectrum antibiotics for another 24 hours awaiting culture results. (2) Fever Qualifiers: Fever type: due to other condition Qualified Code(s): R50.81 - Fever presenting with conditions classified elsewhere Is this a current diagnosis for this admission?: Yes Plan: Fever most likely secondary to occult infection, patient is doing better on broader spectrum antibiotics, could also be secondary to bone marrow recovery. Continue with IV antibiotics and other supportive measures for another 24 hours (3) Nausea & vomiting Qualifiers: Vomiting type: cyclical vomiting Vomiting Intractability: intractable Qualified Code(s): G43.A1 - Cyclical vomiting, intractable Is this a current diagnosis for this admission?: Yes Plan: Secondary to chemotherapy, improving, should resolve fully, continue with hydration and antiemetics (4) Lung cancer Qualifiers: Laterality: right Lung location: middle lobe of lung Qualified Code(s): C34.2 - Malignant neoplasm of middle lobe, bronchus or lung Is this a current diagnosis for this admission?: Yes Plan: Continue with radiation today, she is okay to go ahead and receive radiation. She should receive radiation today and tomorrow to complete radiation. - Time Time Spent: Greater than 70 Minutes - Inpatient Certification Based on my medical assessment, after consideration of the patient's comorbidities, presenting symptoms, or acuity I expect that the services needed warrant INPATIENT care.: Yes I certify that my determination is in accordance with my understanding of Medicare's requirements for reasonable and necessary INPATIENT services [42 CFR 412.3e].: Yes Medical Necessity: Need For IV Fluids, Need For Continuous Telemetry Monitoring, Need for IV Antibiotics, Risk of Complication if Not Cared For in Hospital
--- NOTE | 2018-09-27 10:15 | PDOC PROGRESS REPORT ---
Subjective Progress Note for:: 09/27/18 Subjective:: Patient is feeling much better Patient having no fever overnight Patient is scheduled for the radiations today Denied any chest pain to than any shortness of the breath Reason For Visit: FEVER Physical Exam Vital Signs: Temp Pulse Resp BP Pulse Ox 97.9 F 85 16 91/65 L 96 09/27/18 04:00 09/27/18 07:50 09/27/18 07:50 09/27/18 04:00 09/27/18 07:50 Intake & Output 09/26/18 09/27/18 09/28/18 06:59 06:59 06:59 Intake Total 300 Balance 300 Weight 53.4 kg General appearance: PRESENT: no acute distress, well-developed, well-nourished Head exam: PRESENT: atraumatic, normocephalic Eye exam: PRESENT: conjunctiva pink, EOMI, PERRLA. ABSENT: scleral icterus Ear exam: PRESENT: normal external ear exam Mouth exam: PRESENT: moist, tongue midline Neck exam: PRESENT: full ROM. ABSENT: carotid bruit, JVD, lymphadenopathy, thyromegaly Respiratory exam: PRESENT: clear to auscultation pool Cardiovascular exam: PRESENT: RRR. ABSENT: diastolic murmur, rubs, systolic murmur Vascular exam: PRESENT: normal capillary refill GI/Abdominal exam: PRESENT: normal bowel sounds, soft. ABSENT: distended, guarding, mass, organolmegaly, rebound, tenderness Rectal exam: PRESENT: deferred Musculoskeletal exam: PRESENT: ambulatory Neurological exam: PRESENT: alert, awake, oriented to person, oriented to place, oriented to time, oriented to situation, CN II-XII grossly intact. ABSENT: motor sensory deficit Psychiatric exam: PRESENT: appropriate affect, normal mood. ABSENT: homicidal ideation, suicidal ideation Skin exam: PRESENT: dry, intact, warm. ABSENT: cyanosis, rash Results Laboratory Results: 09/27/18 04:29 09/27/18 04:29 09/26/18 09/26/18 09/27/18 17:38 17:38 04:29 WBC 4.5 4.4 RBC 3.63 L 3.16 L Hgb 11.1 L 9.8 L Hct 32.5 L 28.3 L MCV 90 90 MCH 30.7 31.0 MCHC 34.3 34.6 RDW 16.7 H 16.2 H Plt Count 411 359 Seg Neutrophils % Not Reportable Not Reportable Lymphocytes % Not Reportable Not Reportable Monocytes % Not Reportable Not Reportable Eosinophils % Not Reportable Not Reportable Basophils % Not Reportable Not Reportable Absolute Neutrophils Not Reportable Not Reportable Absolute Lymphocytes Not Reportable Not Reportable Absolute Monocytes Not Reportable Not Reportable Absolute Eosinophils Not Reportable Not Reportable Absolute Basophils Not Reportable Not Reportable Sodium 136.4 L Potassium 3.6 Chloride 91 L Carbon Dioxide 26 Anion Gap 19 BUN 16 Creatinine 1.17 Est GFR ( Amer) 56 L Est GFR (Non-Af Amer) 47 L Glucose 104 Calcium 10.1 Total Bilirubin 0.7 AST 28 ALT 25 Alkaline Phosphatase 120 Total Protein 7.4 Albumin 4.6 09/27/18 04:29 WBC RBC Hgb Hct MCV MCH MCHC RDW Plt Count Seg Neutrophils % Lymphocytes % Monocytes % Eosinophils % Basophils % Absolute Neutrophils Absolute Lymphocytes Absolute Monocytes Absolute Eosinophils Absolute Basophils Sodium 135.8 L Potassium 3.3 L Chloride 96 L Carbon Dioxide 26 Anion Gap 14 BUN 13 Creatinine 0.85 Est GFR ( Amer) > 60 Est GFR (Non-Af Amer) > 60 Glucose 101 Calcium 9.0 Total Bilirubin AST ALT Alkaline Phosphatase Total Protein Albumin Impressions: Chest X-Ray 09/26/18 00:00 IMPRESSION: Atelectasis or early pneumonia left lower lobe. Assessment & Plan - Diagnosis (1) Fever Qualifiers: Fever type: due to other condition Qualified Code(s): R50.81 - Fever pres enting with conditions classified elsewhere Is this a current diagnosis for this admission?: Yes Plan: Wait for the cultures continues to broad-spectrum IV antibiotic (2) Lung cancer Qualifiers: Laterality: right Lung location: middle lobe of lung Qualified Code(s): C34.2 - Malignant neoplasm of middle lobe, bronchus or lung Is this a current diagnosis for this admission?: Yes Plan: This post chemotherapy currently on radiations (3) COPD (chronic obstructive pulmonary disease) Qualifiers: COPD type: chronic bronchitis Is this a current diagnosis for this admission?: Yes Plan: on a nebulizer treatments (4) Nausea & vomiting Qualifiers: Vomiting type: cyclical vomiting Vomiting Intractability: intractable Qualified Code(s): G43.A1 - Cyclical vomiting, intractable Is this a current diagnosis for this admission?: Yes Plan: This post chemotherapy induced - Time Time Spent with patient: 15-24 minutes Medications reviewed and adjusted accordingly: Yes Anticipated discharge: Home Within: Other - Plan Summary Plan Summary: Continues to IV antibiotic
[2018-09-27] MEDS: DOCUSATE SODIUM 100 MG CAPSULE PO SCH (11:00)
[2018-09-27] MEDS: ENOXAPARIN SODIUM INJ 40 MG/0.4 ML DISP.SYRIN SUBCUT SCH (11:01)
[2018-09-27] MEDS: VANCOMYCIN HCL 500 MG in DEXTROSE 5%-WATER 100 ML IV SCH ×2 (11:01→23:25)
[2018-09-27] MEDS: NORMAL SALINE 1000 ML 1,000 ML IV PRN (11:10)
[2018-09-27 13:20] LABS: PATH REVIEW PATHOLOGIST REVIEWED
--- NOTE | 2018-09-27 13:23 | PDOC CONSULTATION ---
History of Present Illness Admission Date/PCP: 09/26/18 15:51 LAYNE CAIN MD History of Present Illness: AMELIA AUSTIN is a 63 year old female that was admitted due to an uncontrolled fever lasting approximately one week, patient is currently receiving chemotherapy and immuno suppressed, due to this the decision was made to admit and follow. I have been consulted due to patients COPD per primary care physician. Patient states she has had a productive cough and she is coughing up a clear mucous. She states she gets short of breath on exertion. Patient has had negative TB test in the past and states she is not coughing up any blood at this time. She denies exposure to smoke as a child and has a 43 year one pack a day smoking history. Patient quit smoking as of April 19, 2018 and has not smoked since that time. 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 She denies travel and has no pets in the home. The patient states she uses 1 pillow at night, denies being restless, night sweats, and waking to use the restroom. She states she has been told she snores. Patient has a history of high blood pressure, this also runs in her family. She currently has a port in place for chemotherapy. Past Medical History Cardiac Medical History: Reports: Hypertension Denies: Coronary Artery Disease, Myocardial Infarction Pulmonary Medical History: Reports: Chronic Obstructive Pulmonary Disease (COPD) Denies: Asthma, Bronchitis, Pneumonia Neurological Medical History: Denies: Seizures Endocrine Medical History: Denies: Hyperthyroidism, Hypothyroidism GI Medical History: Reports: Gastroesophageal Reflux Disease Denies: Crohn's Disease, Hepatitis, Ulcerative Colitis Musculoskeltal Medical History: Denies: Arthritis Skin Medical History: Denies: Psoriasis Traumatic Medical History: Denies: Traumatic Brain Injury Hematology: Denies: Anemia, Sickle Cell Disease Past Surgical History Past Surgical History: Reports: Tubal Ligation Denies: Hysterectomy Social History Smoking Status: Former Smoker Cigarettes Packs Per Day: 1 - 43 year history Last Time Smoked: 04/19/18 Frequency of Alcohol Use: Rare Hx Recreational Drug Use: No Hx Prescription Drug Abuse: No - Advance Directive Resuscitation Status: Full Code Family History Family History: Reviewed & Not Pertinent, Hypertension, Malignancy Parental Family History Reviewed: No Children Family History Reviewed: No Sibling(s) Family History Reviewed.: No Medication/Allergy Home Medications: Albuterol Sulfate [Proair HFA Inhalation Aerosol 8.5 gm MDI] 2 puff IH Q6HP PRN 09/26/18 Budesonide [Pulmicort Neb 0.5 mg/2 ml Ampul] 0.5 mg IH DAILY 09/26/18 Budesonide/Formoterol Fumarate [Symbicort HFA 160-4.5 mcg Inhaler 6 gm] 2 puff IH BID 09/26/18 Cholecalciferol (Vitamin D3) [Vitamin D3 1000 Unit Tablet] 1,000 unit PO DAILY 09/26/18 Hydrochlorothiazide [Hydrodiuril 25 mg Tablet] 25 mg PO DAILY 09/26/18 Ipratropium/Albuterol Sulfate [Duoneb 3 ml Ampul] 3 ml PO Q8 09/26/18 Omeprazole 40 mg PO DAILY 09/26/18 Ondansetron HCl [Zofran 8 mg Tablet] 8 mg PO Q8HP PRN 09/26/18 Promethazine HCl [Phenergan 25 mg Tablet] 25 mg PO Q6HP PRN 09/26/18 Umeclidinium Brm/Vilanterol Tr [Anoro Ellipta 62.5-25 Mcg INH] 1 puff IH DAILY 09/26/18 Allergies/Adverse Reactions: No Known Allergies Allergy (Verified 04/21/18 14:46) Review of Systems Constitutional: PRESENT: fever(s), weakness. ABSENT: chills, headache(s), night sweats, weight gain, weight loss Eyes: ABSENT: visual disturbances Ears: ABSENT: hearing changes Cardiovascular: PRESENT: dyspnea on exertion. ABSENT: chest pain, edema, orthropnea, palpitations Respiratory: ABSENT: cough, hemoptysis Gastrointestinal: ABSENT: abdominal pain, constipation, diarrhea, heartburn, hematemesis, hematochezia, nausea, vomiting Genitourinary: ABSENT: difficulty urinating, dysuria, hematuria, nocturia Musculoskeletal: ABSENT: deformity, joint swelling Integumentary: PRESENT: wounds. ABSENT: pruritus, rash Neurological: PRESENT: abnormal gait. ABSENT: abnormal movements, abnormal speech, confusion, dizziness, focal weakness, memory loss, restless legs, syncope Psychiatric: PRESENT: anxiety, depression. ABSENT: hallucinations, homidical ideation, suicidal ideation Endocrine: ABSENT: cold intolerance, heat intolerance, polydipsia, polyuria Hematologic/Lymphatic: PRESENT: easy bruising. ABSENT: easy bleeding Allergic/Immunologic: ABSENT: seasonal rhinorrhea Physical Exam Vital Signs: Temp Pulse Resp BP Pulse Ox 98.4 F 101 H 16 102/72 91 L 09/27/18 09:01 09/27/18 09:01 09/27/18 09:01 09/27/18 09:01 09/27/18 09:01 Intake & Output 09/26/18 09/27/18 09/28/18 06:59 06:59 06:59 Intake Total 1300 Balance 1300 Weight 53.4 kg General appearance: PRESENT: no acute distress, cooperative, thin Head exam: PRESENT: atraumatic, normocephalic Eye exam: PRESENT: conjunctiva pink, EOMI Ear exam: PRESENT: normal external ear exam Mouth exam: PRESENT: moist, neck supple, tongue midline Neck exam: PRESENT: full ROM. ABSENT: JVD, lymphadenopathy, tracheal deviation Respiratory exam: PRESENT: decreased breath sounds, prolonged expiratory phas. ABSENT: rales, rhonchi, wheezes Cardiovascular exam: PRESENT: RRR Pulses: PRESENT: normal dorsalis pedis pul Vascular exam: PRESENT: normal capillary refill GI/Abdominal exam: PRESENT: soft. ABSENT: distended, tenderness Rectal exam: PRESENT: deferred Extremities exam: PRESENT: full ROM. ABSENT: calf tenderness, clubbing, pedal edema Musculoskeletal exam: PRESENT: ambulatory Neurological exam: PRESENT: alert, awake, oriented to person, oriented to place, oriented to time, oriented to situation Psychiatric exam: PRESENT: appropriate affect, normal mood Skin exam: PRESENT: dry, intact, warm. ABSENT: cyanosis, rash Results Laboratory Results: 09/27/18 04:29 09/27/18 04:29 09/26/18 09/26/18 09/27/18 17:38 17:38 04:29 WBC 4.5 4.4 RBC 3.63 L 3.16 L Hgb 11.1 L 9.8 L Hct 32.5 L 28.3 L MCV 90 90 MCH 30.7 31.0 MCHC 34.3 34.6 RDW 16.7 H 16.2 H Plt Count 411 359 Seg Neutrophils % Not Reportable Not Reportable Lymphocytes % Not Reportable Not Reportable Monocytes % Not Reportable Not Reportable Eosinophils % Not Reportable Not Reportable Basophils % Not Reportable Not Reportable Absolute Neutrophils Not Reportable Not Reportable Absolute Lymphocytes Not Reportable Not Reportable Absolute Monocytes Not Reportable Not Reportable Absolute Eosinophils Not Reportable Not Reportable Absolute Basophils Not Reportable Not Reportable Sodium 136.4 L Potassium 3.6 Chloride 91 L Carbon Dioxide 26 Anion Gap 19 BUN 16 Creatinine 1.17 Est GFR ( Amer) 56 L Est GFR (Non-Af Amer) 47 L Glucose 104 Calcium 10.1 Total Bilirubin 0.7 AST 28 ALT 25 Alkaline Phosphatase 120 Total Protein 7.4 Albumin 4.6 09/27/18 04:29 WBC RBC Hgb Hct MCV MCH MCHC RDW Plt Count Seg Neutrophils % Lymphocytes % Monocytes % Eosinophils % Basophils % Absolute Neutrophils Absolute Lymphocytes Absolute Monocytes Absolute Eosinophils Absolute Basophils Sodium 135.8 L Potassium 3.3 L Chloride 96 L Carbon Dioxide 26 Anion Gap 14 BUN 13 Creatinine 0.85 Est GFR ( Amer) > 60 Est GFR (Non-Af Amer) > 60 Glucose 101 Calcium 9.0 Total Bilirubin AST ALT Alkaline Phosphatase Total Protein Albumin Impressions: Chest X-Ray 09/26/18 00:00 IMPRESSION: Atelectasis or early pneumonia left lower lobe. Assessment & Plan - Diagnosis (1) Lung cancer Qualifiers: Laterality: right Lung location: middle lobe of lung Qualified Code(s): C34.2 - Malignant neoplasm of middle lobe, bronchus or lung Is this a current diagnosis for this admission?: Yes Plan: Followed by oncology (2) COPD exacerbation Plan: Start xopenex 0.63 q6h PRN as a rescue medication, continue duonebs for m aintenance medication Inpatient Scribe Statement - . Entered by Rina Merchant, acting as scribe for .
[2018-09-27] MEDS: BENZONATATE 100 MG CAPSULE PO SCH (21:38)
[2018-09-27] MEDS: CEFEPIME HCL 2 GM in DEXTROSE 5%-WATER 50 ML IV SCH (21:38)
[2018-09-28] MEDS: IPRATROPIUM/ALBUTEROL 0.5-2.5 MG/3 ML AMPUL NEB SCH ×4 (02:16→21:12)
[2018-09-28] MEDS: NORMAL SALINE 1000 ML 1,000 ML IV PRN ×3 (05:44→22:18)
[2018-09-28] MEDS: BENZONATATE 100 MG CAPSULE PO SCH ×3 (05:45→22:16)
[2018-09-28] MEDS: PANTOPRAZOLE SODIUM 40 MG TABLET.DR PO SCH ×2 (05:45→17:54)
--- NOTE | 2018-09-28 08:19 | PDOC PROGRESS REPORT ---
Subjective Progress Note for:: 09/28/18 Subjective:: BP is low this morning and patient was symptomatic with lightheadedness. Reason For Visit: FEVER Physical Exam Vital Signs: Temp Pulse Resp BP Pulse Ox 98.6 F 88 16 86/61 L 92 09/28/18 04:48 09/28/18 07:00 09/28/18 04:48 09/28/18 04:48 09/28/18 04:48 Intake & Output 09/27/18 09/28/18 09/29/18 06:59 06:59 06:59 Intake Total 1300 1986 Balance 1300 1986 Weight 53.4 kg 56.7 kg General appearance: PRESENT: no acute distress, well-developed, well-nourished Head exam: PRESENT: atraumatic, normocephalic Eye exam: PRESENT: conjunctiva pink, EOMI, PERRLA. ABSENT: scleral icterus Ear exam: PRESENT: normal external ear exam Mouth exam: PRESENT: moist, tongue midline Neck exam: ABSENT: carotid bruit, JVD, lymphadenopathy, thyromegaly Respiratory exam: PRESENT: clear to auscultation pool. ABSENT: rales, rhonchi, wheezes Cardiovascular exam: PRESENT: RRR. ABSENT: diastolic murmur, rubs, systolic murmur Pulses: PRESENT: normal dorsalis pedis pul Vascular exam: PRESENT: normal capillary refill GI/Abdominal exam: PRESENT: normal bowel sounds, soft. ABSENT: distended, guarding, mass, organolmegaly, rebound, tenderness Rectal exam: PRESENT: deferred Extremities exam: PRESENT: full ROM. ABSENT: calf tenderness, clubbing, pedal edema Neurological exam: PRESENT: alert, awake, oriented to person, oriented to place, oriented to time, oriented to situation, CN II-XII grossly intact. ABSENT: motor sensory deficit Psychiatric exam: PRESENT: appropriate affect, normal mood. ABSENT: homicidal ideation, suicidal ideation Skin exam: PRESENT: dry, intact, warm. ABSENT: cyanosis, rash Results Laboratory Results: 09/27/18 04:29 09/27/18 04:29 Impressions: Chest X-Ray 09/26/18 00:00 IMPRESSION: Atelectasis or early pneumonia left lower lobe. Assessment & Plan - Diagnosis (1) SIRS (systemic inflammatory response syndrome) Is this a current diagnosis for this admission?: Yes Plan: Resolving, discontinue vancomycin, continue cefepime for another 24 hours. (2) Fever Qualifiers: Fever type: due to other condition Qualified Code(s): R50.81 - Fever presenting with conditions classified elsewhere Is this a current diagnosis for this admission?: Yes Plan: Defervesced, possibly secondary bacterial infection, continue with cefepime but discontinue vancomycin (3) Nausea & vomiting Qualifiers: Vomiting type: cyclical vomiting Vomiting Intractability: intractable Qualified Code(s): G43.A1 - Cyclical vomiting, intractable Is this a current diagnosis for this admission?: Yes Plan: Secondary to chemotherapy, probable cause of hypotension, give 1 L bolus today as well as increase IV fluids for another 24 hours. (4) Lung cancer Qualifiers: Laterality: right Lung location: middle lobe of lung Qualified Code(s): C34.2 - Malignant neoplasm of middle lobe, bronchus or lung Is this a current diagnosis for this admission?: Yes Plan: Continue radiation, tomorrow with the last dose. - Inpatient Certification Based on my medical assessment, after consideration of the patient's comorbidities, presenting symptoms, or acuity I expect that the services needed warrant INPATIENT care.: Yes I certify that my determination is in accordance with my understanding of [facility] requirements for reasonable and necessary INPATIENT services [42 CFR 412.3e].: Yes Medical Necessity: Need For IV Fluids, Need for IV Antibiotics
--- NOTE | 2018-09-28 09:36 | PDOC PROGRESS REPORT ---
Subjective Progress Note for:: 09/28/18 Subjective:: Is currently doing well Patient's blood pressure was running below 90 but denied any chest pain to than any shortness of the breath Patient's blood pressures this morning was 111 systolic patient is alert awake oriented x3 denied any symptoms Patient having no fever Reason For Visit: FEVER Physical Exam Vital Signs: Temp Pulse Resp BP Pulse Ox 98.6 F 90 16 86/61 L 94 09/28/18 04:48 09/28/18 07:56 09/28/18 07:56 09/28/18 04:48 09/28/18 07:56 Intake & Output 09/27/18 09/28/18 09/29/18 06:59 06:59 06:59 Intake Total 1300 1986 Balance 1300 1986 Weight 53.4 kg 56.7 kg General appearance: PRESENT: no acute distress, well-developed, well-nourished Head exam: PRESENT: atraumatic, normocephalic Eye exam: PRESENT: conjunctiva pink, EOMI, PERRLA. ABSENT: scleral icterus Ear exam: PRESENT: normal external ear exam Mouth exam: PRESENT: moist, tongue midline Neck exam: PRESENT: full ROM. ABSENT: carotid bruit, JVD, lymphadenopathy, thyromegaly Respiratory exam: PRESENT: clear to auscultation pool Cardiovascular exam: PRESENT: RRR. ABSENT: diastolic murmur, rubs, systolic murmur Vascular exam: PRESENT: normal capillary refill GI/Abdominal exam: PRESENT: normal bowel sounds, soft. ABSENT: distended, guarding, mass, organolmegaly, rebound, tenderness Rectal exam: PRESENT: deferred Extremities exam: ABSENT: pedal edema Musculoskeletal exam: PRESENT: ambulatory Neurological exam: PRESENT: alert, awake, oriented to person, oriented to place, oriented to time, oriented to situation, CN II-XII grossly intact. ABSENT: motor sensory deficit Psychiatric exam: PRESENT: appropriate affect, normal mood. ABSENT: homicidal ideation, suicidal ideation Skin exam: PRESENT: dry, intact, warm. ABSENT: cyanosis, rash Results Laboratory Results: 09/27/18 04:29 09/27/18 04:29 Impressions: Chest X-Ray 09/26/18 00:00 IMPRESSION: Atelectasis or early pneumonia left lower lobe. Assessment & Plan - Diagnosis (1) Fever Qualifiers: Fever type: due to other condition Qualified Code(s): R50.81 - Fever presenting with conditions classified elsewhere Is this a current diagnosis for this admission?: Yes Plan: So far culture is all negative we will discontinues to IV antibiotic (2) Lung cancer Qualifiers: Laterality: right Lung location: middle lobe of lung Qualified Code(s): C34.2 - Malignant neoplasm of middle lobe, bronchus or lung Is this a current diagnosis for this admission?: Yes Plan: This post chemotherapy currently on radiations (3) COPD (chronic obstructive pulmonary disease) Qualifiers: COPD type: chronic bronchitis Is this a current diagnosis for this admission?: Yes Plan: on a nebulizer treatments (4) Nausea & vomiting Qualifiers: Vomiting type: cyclical vomiting Vomiting Intractability: intractable Qualified Code(s): G43.A1 - Cyclical vomiting, intractable Is this a current diagnosis for this admission?: Yes Plan: Fluid currently all improving - Time Time Spent with patient: 15-24 minutes Medications reviewed and adjusted accordingly: Yes Anticipated discharge: Home Within: within 24 hours - Plan Summary Plan Summary: Doing well
[2018-09-28] MEDS: DOCUSATE SODIUM 100 MG CAPSULE PO SCH (09:48)
[2018-09-28] MEDS: ENOXAPARIN SODIUM INJ 40 MG/0.4 ML DISP.SYRIN SUBCUT SCH (09:48)
[2018-09-28 11:52] LABS: VANCOMYCIN,TROUGH 8.1 ug/mL (5.0-20.0)
[2018-09-28] MEDS: CEFEPIME HCL 2 GM in DEXTROSE 5%-WATER 50 ML IV SCH (22:16)
[2018-09-29] MEDS: IPRATROPIUM/ALBUTEROL 0.5-2.5 MG/3 ML AMPUL NEB SCH ×2 (02:09→07:42)
[2018-09-29 03:49] LABS: HEMATOCRIT 24.9 % (36.0-47.0); HEMOGLOBIN 8.6 g/dL (12.0-15.5); MEAN CORPUSCULAR HGB CONC 34.5 g/dL (32.0-36.0); MEAN CORPUSCULAR VOLUME 90 fl (80-97); PLATELET COUNT 318 10^3/uL (150-450); RED BLOOD COUNT 2.77 10^6/uL (3.72-5.28); RED CELL DISTRIBUTION WIDTH 16.1 % (11.5-14.0); WHITE BLOOD COUNT 4.8 10^3/uL (4.0-10.5)
[2018-09-29 04:03] LABS: ANION GAP 8 (5-19); BLOOD UREA NITROGEN 5 mg/dL (7-20); CALCIUM 8.6 mg/dL (8.4-10.2); CARBON DIOXIDE 22 mmol/L (22-30); CHLORIDE 108 mmol/L (98-107); GLUCOSE 89 mg/dL (75-110); POTASSIUM 3.5 mmol/L (3.6-5.0); SODIUM 138.1 mmol/L (137-145)
[2018-09-29 04:23] LABS: ABSOLUTE LYMPHOCYTES# (MANUAL) 0.1 10^3/uL (0.5-4.7); ABSOLUTE MONOCYTES # (MANUAL) 1.1 10^3/uL (0.1-1.4); ABSOLUTE NEUTROPHILS# (MANUAL) 3.4 10^3/uL (1.7-8.2); BAND NEUTROPHILS % (MANUAL) 2 % (3-5); BASOPHILS % (MANUAL) 0 % (0-2); EOSINOPHILS % (MANUAL) 4 % (0-6); LYMPHOCYTES % (MANUAL) 3 % (13-45); MONOCYTES % (MANUAL) 23 % (3-13); SEGMENTED NEUTROPHILS % (MAN) 65 % (42-78); TOTAL CELLS COUNTED 100
[2018-09-29 04:24] LABS: MYELOCYTES % (MANUAL) 3 % (0); PLATELET COMMENT ADEQUATE; RBC MORPHOLOGY COMMENT NORMO-CYTIC/CHROMIC
[2018-09-29] MEDS ORDERED: POTASSIUM CHLORIDE 10 MEQ CAPSULE.ER PO ONE (06:26)
[2018-09-29] MEDS: PANTOPRAZOLE SODIUM 40 MG TABLET.DR PO SCH (06:28)
[2018-09-29] MEDS: BENZONATATE 100 MG CAPSULE PO SCH (06:29)
[2018-09-29] MEDS: ENOXAPARIN SODIUM INJ 40 MG/0.4 ML DISP.SYRIN SUBCUT SCH (09:30)
[2018-09-29 09:32] VITALS: BP 91/61
[2018-09-29] MEDS: DOCUSATE SODIUM 100 MG CAPSULE PO SCH (09:37)
--- NOTE | 2018-09-29 10:45 | PDOC DISCHARGE SUMMARY ---
General - Admit/Disc Date/PCP Admission Date/Primary Care Provider: 09/26/18 15:51 LAYNE CAIN MD Discharge Date: 09/29/18 - Discharge Diagnosis (1) Fever Is this a current diagnosis for this admission?: Yes Summary: Currently all cultures negative and resolving Some low-grade fever as per discussed with the oncology Dr. Jain and suggest to okay to discharge and follow outpatients and put on a p.o. doxycycline (2) Lung cancer Is this a current diagnosis for this admission?: Yes Summary: With the oncology (3) COPD (chronic obstructive pulmonary disease) Is this a current diagnosis for this admission?: Yes Summary: Is a current inhaler (4) Nausea & vomiting Is this a current diagnosis for this admission?: Yes Summary: Currently all resolved - Additional Information Resuscitation Status: Full Code Discharge Diet: Regular Discharge Activity: Activity As Tolerated Prescriptions: Doxycycline Hyclate 100 mg PO BID #14 capsule Home Medications: Albuterol Sulfate [Proair HFA Inhalation Aerosol 8.5 gm MDI] 2 puff IH Q6HP PRN 09/26/18 Budesonide [Pulmicort Neb 0.5 mg/2 ml Ampul] 0.5 mg IH DAILY 09/26/18 Budesonide/Formoterol Fumarate [Symbicort HFA 160-4.5 mcg Inhaler 6 gm] 2 puff IH BID 09/26/18 Cholecalciferol (Vitamin D3) [Vitamin D3 1000 Unit Tablet] 1,000 unit PO DAILY 09/26/18 Hydrochlorothiazide [Hydrodiuril 25 mg Tablet] 25 mg PO DAILY 09/26/18 Ipratropium/Albuterol Sulfate [Duoneb 3 ml Ampul] 3 ml PO Q8 09/26/18 Omeprazole 40 mg PO DAILY 09/26/18 Ondansetron HCl [Zofran 8 mg Tablet] 8 mg PO Q8HP PRN 09/26/18 Promethazine HCl [Phenergan 25 mg Tablet] 25 mg PO Q6HP PRN 09/26/18 Umeclidinium Brm/Vilanterol Tr [Anoro Ellipta 62.5-25 Mcg INH] 1 puff IH DAILY 09/26/18 Doxycycline Hyclate 100 mg PO BID #14 capsule 09/29/18 History of Present Illness History of Present Illness: AMELIA AUSTIN is a 63 year old female This is a 63-year-old female's with a history of the COPD with a history of the stage III lung cancer recently getting the chemotherapy and the radiations the last 2 dose of the radiation's left and was starting the fever last week seen by the oncology start on Levaquin p.o. daily and IV fluid was given 2 days went to see her Dr. Marcos office and still running a fever and decided to admit in the hospital for further evaluation and treatments Patient's was neutropenic and pancytopenic according to the oncology patients CBC all get better Patients came to my office from oncology office for direct admissions patient is otherwise doing well except complaining of some mild cough and on and off fever since last 1 week Patient's appetite is very poor feeling nausea and vomiting Patient is denied any chest pain to than any shortness of the breath Patient is denied any abdominal pain Patient's looks little dehydrated patient's temperature was 99.4 in my office blood pressures remained stable Patient was as per discussed with oncology put on broad-spectrum IV antibiotic Hospital Course Hospital Course: This is a 63-year-old female with a history of the lung cancer currently getting the chemo and radiation's failed outpatients Levaquin because of the fever and patient admitting in the hospital started on IV fluid and broad-spectrum IV antibiotic Patient's all blood culture urine culture is negative Patient have a questionable pneumonia As per discussed with the oncology weakness continues to IV vancomycin's and IV antibiotic and start on the p.o. antibiotic Patients remain stable afebrile consider low-grade fever and discussed with the oncology suggest the patient's following office Discussed with the patient if he running any fever 101 or any short of breath following the ER Patient is very anxious to go home Physical Exam Vital Signs: Temp Pulse Resp BP Pulse Ox 99.4 F 85 16 91/61 L 95 09/29/18 09:31 09/29/18 09:31 09/29/18 09:31 09/29/18 09:31 09/29/18 09:31 Intake & Output 09/28/18 09/29/18 09/30/18 06:59 06:59 06:59 Intake Total 1986 1065 Balance 1986 3434 Weight 56.7 kg 56.8 kg General appearance: PRESENT: no acute distress, well-developed, well-nourished Head exam: PRESENT: atraumatic, normocephalic Eye exam: PRESENT: conjunctiva pink, EOMI, PERRLA. ABSENT: scleral icterus Ear exam: PRESENT: normal external ear exam Mouth exam: PRESENT: moist, tongue midline Neck exam: PRESENT: full ROM. ABSENT: carotid bruit, JVD, lymphadenopathy, thyromegaly Respiratory exam: PRESENT: clear to auscultation pool Cardiovascular exam: PRESENT: RRR. ABSENT: diastolic murmur, rubs, systolic murmur Vascular exam: PRESENT: normal capillary refill GI/Abdominal exam: PRESENT: normal bowel sounds, soft. ABSENT: distended, guarding, mass, organolmegaly, rebound, tenderness Rectal exam: PRESENT: deferred Neurological exam: PRESENT: alert, awake, oriented to person, oriented to place, oriented to time, oriented to situation, CN II-XII grossly intact. ABSENT: motor sensory deficit Psychiatric exam: PRESENT: appropriate affect, normal mood. ABSENT: homicidal ideation, suicidal ideation Skin exam: PRESENT: dry, intact, warm. ABSENT: cyanosis, rash Results Laboratory Results: 09/29/18 03:15 09/29/18 03:15 09/28/18 09/29/18 09/29/18 10:45 03:15 03:15 WBC 4.8 RBC 2.77 L Hgb 8.6 L Hct 24.9 L MCV 90 MCH 31.0 MCHC 34.5 RDW 16.1 H Plt Count 318 Seg Neutrophils % Not Reportable Lymphocytes % Not Reportable Monocytes % Not Reportable Eosinophils % Not Reportable Basophils % Not Reportable Absolute Neutrophils Not Reportable Absolute Lymphocytes Not Reportable Absolute Monocytes Not Reportable Absolute Eosinophils Not Reportable Absolute Basophils Not Reportable Sodium 138.1 Potassium 3.5 L Chloride 108 H Carbon Dioxide 22 Anion Gap 8 BUN 5 L Creatinine 0.69 0.60 Est GFR ( Amer) > 60 > 60 Est GFR (Non-Af Amer) > 60 > 60 Glucose 89 Calcium 8.6 Impressions: Chest X-Ray 09/26/18 00:00 IMPRESSION: Atelectasis or early pneumonia left lower lobe. Qualifiers - * PATIENT BEING DISCHARGED WITH ANY OF THE FOLLOWING DIAGNOSIS: No VTE patient discharged on overlapping Therapy?: Yes Acute Heart Failure Is this a Heart Failure Patient?: No Plan Time Spent: Greater than 30 Minutes - Follow outpatient oncology Follow in office in 1 week
--- NOTE | 2018-10-30 13:00 | Progress Note ---
Provider Note Provider Note: not sure due to malignacy and possible obust pnmonia
== END 2018-09-29 09:45 | disposition home or self-care (01) | DRG 180 ==
LOC: 5 15:51
PROVIDERS: ADMIT Family Medicine; ATTEND Family Medicine
DX: C34.2 Malignant neoplasm of middle lobe, bronchus or lung (principal); J18.9 Pneumonia, unspecified organism; R65.10 Systemic inflammatory response syndrome (SIRS) of non-infectious origin without acute organ dysfunction; R50.9 Fever, unspecified; G43.A1 Cyclical vomiting, in migraine, intractable; J44.9 Chronic obstructive pulmonary disease, unspecified; E86.0 Dehydration; Z79.899 Other long term (current) drug therapy; I95.9 Hypotension, unspecified; I10 Essential (primary) hypertension; K21.9 Gastro-esophageal reflux disease without esophagitis; Z92.25 Personal history of immunosuppression therapy; Z87.891 Personal history of nicotine dependence; Z82.49 Family history of ischemic heart disease and other diseases of the circulatory system; Z79.51 Long term (current) use of inhaled steroids
CPT/HCPCS: 36415; 71045; 80048; 80053; 80202; 82565; 85025; 87040; 87070; 87086; 87205; 94640; J0692; J1650; J3370; J3490; J7030; J7060; J7620

== ENCOUNTER 2018-10-18 10:12 | Outpatient (CLI) | payer OTHER ==
[2018-10-18] MEDS ORDERED: DEXAMETHASONE SOD PHOSPHATE 20 MG in NORMAL SALINE 50 ML IV PRN (10:37)
[2018-10-18 10:38] VITALS: BP 104/75
[2018-10-18] MEDS ORDERED: DIPHENHYDRAMINE HCL 50 MG in NORMAL SALINE 50 ML INJ PRN (10:39)
[2018-10-18] MEDS ORDERED: FAMOTIDINE/PF 20 MG in NORMAL SALINE 50 ML IV PRN (10:40)
[2018-10-18] MEDS ORDERED: NORMAL SALINE 250 ML IV PRN (10:40)
[2018-10-18] MEDS ORDERED: NORMAL SALINE IV PRN ×2 (10:41→10:44)
[2018-10-18] MEDS ORDERED: PACLITAXEL SEMI SYNTHETIC IV PRN (10:41)
[2018-10-18] MEDS ORDERED: CARBOPLATIN IV PRN (10:44)
[2018-10-18] MEDS ORDERED: PALONOSETRON 0.25 MG/5 ML SDV IV PRN (10:47)
== END 2018-10-18 16:41 | disposition home or self-care (01) ==
LOC: II 10:12 → 5TH 10:16 → II 16:41
PROVIDERS: ATTEND Internal Medicine
PROC: 3E04305 Introduction of Other Antineoplastic into Central Vein, Percutaneous Approach (ICD-10-PCS; principal; 2018-10-18)
PROC: 3E0433Z Introduction of Anti-inflammatory into Central Vein, Percutaneous Approach (ICD-10-PCS; 2018-10-18)
PROC: 3E043GC Introduction of Other Therapeutic Substance into Central Vein, Percutaneous Approach (ICD-10-PCS; 2018-10-18)
DX: Z51.11 Encounter for antineoplastic chemotherapy (principal); C34.32 Malignant neoplasm of lower lobe, left bronchus or lung
CPT/HCPCS: 96413; 96415; 96365; 96366; 96374; J1200; J9045; J7040; J9267; S0028; J1100; J1642; J2469; 96367; 96375; 96417

== ENCOUNTER 2018-11-08 08:21 | Outpatient (CLI) | payer OTHER ==
[~2018-11-08 08:21] MED LIST changes: -CARBOPLATIN IV PRN; -DEXAMETHASONE SOD PHOSPHATE 10 MG in NORMAL SALINE 50 ML IV PRN; +DIPHENHYDRAMINE 50 MG in NS 50 ML IV PRN; -DIPHENHYDRAMINE HCL 50 MG in NORMAL SALINE 50 ML IV PRN; -FAMOTIDINE/PF 20 MG in NORMAL SALINE 50 ML IV PRN; +NORMAL SALINE 250 ML @ KVO IV PRN; -NORMAL SALINE 250 ML IV PRN; -NORMAL SALINE IV PRN; -PACLITAXEL SEMI SYNTHETIC IV PRN; -PALONOSETRON 0.25 MG/5 ML SDV IV PRN
[2018-11-08] MEDS ORDERED: DEXAMETHASONE 10 MG in NS 50 ML IV PRN (08:53)
[2018-11-08] MEDS ORDERED: PALONOSETRON 0.25 MG/5 ML VIAL IV PRN (08:53)
[2018-11-08] MEDS ORDERED: FAMOTIDINE 20 MG in NS 50 ML IV PRN (08:54)
[2018-11-08] MEDS ORDERED: PACLITAXEL SEMI SYNTHETIC IV PRN (08:55)
[2018-11-08] MEDS ORDERED: NORMAL SALINE IV PRN ×2 (08:55→08:56)
[2018-11-08] MEDS ORDERED: CARBOPLATIN IV PRN (08:56)
[2018-11-08] MEDS ORDERED: DEXAMETHASONE SOD PHOSPHATE 20 MG in NORMAL SALINE 50 ML IV PRN (08:59)
[2018-11-08 09:05] VITALS: BP 106/50
== END 2018-11-08 14:49 | disposition home or self-care (01) ==
LOC: II 08:21 → 5TH 08:25 → II 14:49
PROVIDERS: ATTEND Internal Medicine
PROC: 3E04305 Introduction of Other Antineoplastic into Central Vein, Percutaneous Approach (ICD-10-PCS; principal; 2018-11-08)
PROC: 3E0433Z Introduction of Anti-inflammatory into Central Vein, Percutaneous Approach (ICD-10-PCS; 2018-11-08)
PROC: 3E043GC Introduction of Other Therapeutic Substance into Central Vein, Percutaneous Approach (ICD-10-PCS; 2018-11-08)
DX: Z51.11 Encounter for antineoplastic chemotherapy (principal); C34.32 Malignant neoplasm of lower lobe, left bronchus or lung
CPT/HCPCS: 96413; 96415; 96367; 96375; 96417; J1200; J9045; J7040; J9267; S0028; J1100; J1642; J2469; 96360; 96374

== ENCOUNTER → 2019-01-14 | Outpatient (CLI) | payer SELFPAY ==
--- NOTE | 2019-01-15 09:24 | RADIOLOGY REPORT (SQ) ---
EXAM DESCRIPTION: PET CT SKULL/THIGH COMPLETED DATE/TIME: 01/15/2019 1:07 am REASON FOR STUDY: (C34.32)MALIGNANT NEOPLASM OF LOWER LOBE, LEFT BRONCHUS OR LUNG C34.32 MALIGNANT NEOPLASM OF LOWER LOBE, LEFT BRONCHUS OR BURTON COMPARISON: PET-CT 05/07/2018 CT chest 04/22/2018, 08/03/2017, 07/21/2016 CT abdomen pelvis 08/03/2017, 05/20/2015 RADIONUCLIDE AND DOSE: 10.6 mCi F18 FDG The route of agent administration: Intravenous FASTING BLOOD SUGAR: 92 mg/dl CONTRAST TYPE AND DOSE: No CT contrast given. TECHNIQUE: Blood glucose level was verified. Above dose of FDG was injected intravenously. 2-D seg mented attenuation correction images were obtained from the base of the skull to the midthighs. Nonc ontrast CT images were obtained for attenuation correction and fusion with emission images. CT image s were performed without oral or intravenous contrast and are not sensitive for parenchymal lesions. A series of overlapping emission PET images were obtained. Images reviewed and manipulated at [facility] work station by the radiologist. Images stored on PACS. LIMITATIONS: None. FINDINGS: HEAD AND NECK: No areas of abnormal metabolic activity in the soft tissues of the head and neck. CHEST: 9 to 10 mm residual nodule in the left lower lobe surrounded by radiotherapy treatment markers on axial image 91/255 has metabolic activity less than blood pool with SUV 1.4 (was 1.3 cm in size w ith SUV 3.5 on 05/07/2018). No mediastinal or hilar adenopathy. ABDOMEN AND PELVIS: No areas of abnormal metabolic activity in the abdomen or pelvis. Expected physi ologic activity is present in the genitourinary system and bowel. PROXIMAL LOWER EXTREMITIES: No areas of abnormal metabolic activity in the soft tissues of the lower extremities. BONES: No abnormal metabolic activity in the visualized skeleton. ADDITIONAL CT FINDINGS: Right-sided jugular permanent central line tip superior vena cava. Thoracolu mbar scoliosis. Atherosclerotic aortoiliac calcifications OTHER: Liver background activity 2.4 SUV. Blood pool background activity 1.5 SUV IMPRESSION: Treatment response, non metabolic 9 to 10 mm residual nodule left lower lobe surrounded by radiotherapy treatment markers TECHNICAL DOCUMENTATION: JOB ID: [id number] [employer]- All Rights Reserved Reading location - IP/workstation name: [email or web address]
== END ==
LOC: RAD 15:30
PROVIDERS: ATTEND Physician Assistant Medical
DX: C34.32 Malignant neoplasm of lower lobe, left bronchus or lung (principal)
CPT/HCPCS: 78815; A9552

== ENCOUNTER → 2019-03-30 | Outpatient (CLI) | payer MEDICARE, OTHER ==
--- NOTE | 2019-04-02 09:47 | WOMENS IMAGING REPORT ---
EXAM DESCRIPTION: 3D SCREENING MAMMO BILAT COMPLETED DATE/TIME: 03/30/2019 3:18 pm REASON FOR STUDY: Z12.31 SCREENING MAMMO Z12.31 ENCNTR SCREEN MAMMOGRAM FOR MALIGNANT NEOPLASM OF B RE COMPARISON: 2015 to 2017 EXAM PARAMETERS: Views: Standard craniocaudal and mediolateral oblique views of each breast recorded using digital acquisition and breast tomosynthesis. Read with the assistance of CAD. .FORMER[facility] - [employer] Version 9.2 LIMITATIONS: None. FINDINGS: No suspicious masses, suspicious calcifications or architectural distortion. No areas of c oncern. IMPRESSION: NEGATIVE MAMMOGRAM. BIRADS 1. BREAST DENSITY: b. There are scattered areas of fibroglandular density. BIRAD: ASSESSMENT: 1 NEGATIVE RECOMMENDATION: ROUTINE SCREENING COMMENT: The patient has been notified of the results by letter per MQSA requirements. Additional no tification policies are in place for contacting patient with suspicious or incomplete findings. Quality ID #[id number]: The [employer] recommends an annual screening mammogram for women aged 40 years or over. This facility utilizes a reminder system to ensure that all patients receive reminder letters, and/or direct phone calls for appointments. This includes reminders for routine scr eening mammograms, diagnostic mammograms, or other Breast Imaging Interventions when appropriate. Th is patient will be placed in the appropriate reminder system. TECHNICAL DOCUMENTATION: FINDING NUMBER: (1) ASSESSMENT: (1) JOB ID: [id number] [employer]- All Rights Reserved Reading location - IP/workstation name: [email or web address]
== END ==
LOC: WI 15:00
PROVIDERS: ATTEND Family Medicine
DX: Z12.31 Encounter for screening mammogram for malignant neoplasm of breast (principal)
CPT/HCPCS: 77063; 77067

== ENCOUNTER → 2019-04-16 | Outpatient (CLI) | payer MEDICARE, OTHER ==
--- NOTE | 2019-04-16 10:11 | RADIOLOGY REPORT (SQ) ---
EXAM DESCRIPTION: CT CHEST WITHOUT COMPLETED DATE/TIME: 04/16/2019 8:52 am REASON FOR STUDY: LUNG CA (C34.32) C34.32 MALIGNANT NEOPLASM OF LOWER LOBE, LEFT BRONCHUS OR BURTON COMPARISON: PET-CT 01/14/2019 CT chest 04/22/2018, 08/03/2017 TECHNIQUE: CT scan performed of the chest without intravenous contrast. Images reviewed with lung, soft tissue and bone windows. Reconstructed coronal and sagittal MPR images reviewed. All images st ored on PACS. All CT scanners at this facility use dose modulation, iterative reconstruction, and/or weight based d osing when appropriate to reduce radiation dose to as low as reasonably achievable (ALARA). [facility]: Dose Right [facility]: CareDose [facility]: Dose Right [facility]: Teradose 4D [facility]: [employer] RADIATION DOSE: CT Rad equipment meets quality standard of care and radiation dose reduction techniq ues were employed. CTDIvol: 3.3 mGy. DLP: 132 mGy-cm. mGy. LIMITATIONS: No technical limitations. FINDINGS: LUNGS AND PLEURA: Patient has radiotherapy treatment markers in the left lower lobe. Band like consolidation in the left lower lobe along bronchovascular bundles is seen along the fiducials. The primary left lower lobe mass on CT 04/22/2018 is no longer identified on today's study. Remainder of the lungs are hyperinflated and clear. No pleural effusions. No pneumothorax. HILAR AND MEDIASTINAL STRUCTURES: No identified masses or abnormal nodes. No obvious aneurysm. HEART AND VASCULAR STRUCTURES: No aneurysm. No pericardial effusion. UPPER ABDOMEN: No significant findings. Limited exam. THYROID AND OTHER SOFT TISSUES: No masses. No adenopathy. BONES: Convex rightward thoracolumbar curvature HARDWARE: Right-sided permanent central line tip superior vena cava OTHER: No other significant findings. IMPRESSION: Post therapeutic changes left lower lobe with radiation fibrosis along lower lobe fiduci als. Primary nodule in the left lower lobe is difficult to visualize. No CT evidence of mediastinal adenopathy TECHNICAL DOCUMENTATION: JOB ID: [id number] Quality ID # [id number]: Final reports with documentation of one or more dose reduction techniques (e.g., Au tomated exposure control, adjustment of the mA and/or kV according to patient size, use of iterative reconstruction technique) 2010 [employer]- All Rights Reserved Reading location - IP/workstation name: [email or web address]
== END ==
LOC: RAD 08:39
PROVIDERS: ATTEND Internal Medicine
DX: C34.32 Malignant neoplasm of lower lobe, left bronchus or lung (principal)
CPT/HCPCS: 71250

== ENCOUNTER → 2019-07-23 | Outpatient (CLI) | payer MEDICARE, OTHER ==
--- NOTE | 2019-07-23 09:48 | RADIOLOGY REPORT (SQ) ---
EXAM DESCRIPTION: CT CHEST WITHOUT COMPLETED DATE/TIME: 07/23/2019 8:14 am REASON FOR STUDY: LUNG CA (C34.32) C34.32 MALIGNANT NEOPLASM OF LOWER LOBE, LEFT BRONCHUS OR BURTON COMPARISON: CT of the chest without contrast from June 16 TECHNIQUE: CT scan performed of the chest without intravenous contrast. Images reviewed with lung, soft tissue and bone windows. Reconstructed coronal and sagittal MPR images reviewed. All images st ored on PACS. All CT scanners at this facility use dose modulation, iterative reconstruction, and/or weight based d osing when appropriate to reduce radiation dose to as low as reasonably achievable (ALARA). [facility]: Dose Right [facility]: CareDose [facility]: Dose Right [facility]: Teradose 4D [facility]: [employer] RADIATION DOSE: CT Rad equipment meets quality standard of care and radiation dose reduction techniq ues were employed. CTDIvol: 3.1 mGy. DLP: 115 mGy-cm. LIMITATIONS: No technical limitations. FINDINGS: LUNGS AND PLEURA: Unchanged hyper-inflated hyperlucent lungs. The trachea and main bronch i are patent. The areas of mild bronchiectasis in the perihilar aspect of the left upper lobe (image 67 of series 4) are unchanged. The fiducial markers and the chronic opacities distributed along the bronchovascular bundle in the left lower lobe are also unchanged. There are several solid noncalcified nodules that are stable in size and number from the prior CT; th romy include the 6 mm perifissural nodule in the right middle lobe (image 65 of series 4), the 4 mm golden bpleural nodule in the right lower lobe (image 62 of series 4), and the subpleural nodular opacities in the left upper lobe (image 63 of series 4). There is no new or enlarging a pulmonary nodule. The re is also no acute consolidation, ground-glass opacification, pleural effusion or pneumothorax. HILAR AND MEDIASTINAL STRUCTURES: Evaluation of the derek for adenopathy is limited due to the absence of intravenous contrast. There is no mediastinal adenopathy or mass. HEART AND VASCULAR STRUCTURES: Atherosclerotic calcification of the thoracic aorta and coronary arter ies. There is no thoracic aortic aneurysm, cardiomegaly or pericardial effusion. UPPER ABDOMEN: No acute findings. THYROID AND OTHER SOFT TISSUES: No masses or adenopathy. BONES: Severe dextroconvex scoliotic curvature of the thoracic spine. HARDWARE: The tip of the right IJ single-lumen terminates within the SVC. OTHER: No other findings. IMPRESSION: Unchanged appearance of the lung with chronic areas of radiation fibrosis in the left lo wer lobe. There is no acute cardiopulmonary process. TECHNICAL DOCUMENTATION: JOB ID: [id number] Quality ID # [id number]: Final reports with documentation of one or more dose reduction techniques (e.g., Au tomated exposure control, adjustment of the mA and/or kV according to patient size, use of iterative reconstruction technique) 2010 [employer]- All Rights Reserved Reading location - IP/workstation name: [email or web address]
== END ==
LOC: RAD 08:01
PROVIDERS: ATTEND Internal Medicine
DX: C34.32 Malignant neoplasm of lower lobe, left bronchus or lung (principal); M41.84 Other forms of scoliosis, thoracic region
CPT/HCPCS: 71250

== ENCOUNTER 2019-08-18 03:07 | Emergency (ER) | payer MEDICARE, OTHER ==
--- NOTE | 2019-08-18 03:28 | ER Document Report ---
ED General - General Chief Complaint: Shortness Of Breath Stated Complaint: GENERAL WEAKNESS Time Seen by Provider: 08/18/19 03:17 Primary Care Provider: LAYNE CAIN MD [Primary Care Provider] - 08/20/19 Notes: 64-year-old female with a history of COPD and lung cancer (former smoker stopped for over a year, formally on chemotherapy and radiation but completed and no longer on this), that comes emergency department for chief complaint of fever of 101 F, cough, shortness of breath, body aches, weakness. Symptoms have been worsening for 1 week. She has not had the influenza vaccine. She has not been exposed any obvious contacts or had recent travel. She denies headache, chest pain, abdominal pain, vomiting, diarrhea. She is not on home oxygen. TRAVEL OUTSIDE OF THE [place] IN LAST 30 DAYS: No - Related Data Allergies/Adverse Reactions: No Known Allergies Allergy (Verified 04/21/18 14:46) Past Medical History - General Information source: Patient - Social History Smoking Status: Former Smoker Frequency of alcohol use: None Drug Abuse: None Lives with: Family Family History: Reviewed & Not Pertinent, Hypertension, Malignancy Patient has suicidal ideation: No Patient has homicidal ideation: No - Past Medical History Cardiac Medical History: Reports: Hx Hypertension Denies: Hx Coronary Artery Disease, Hx Heart Attack Pulmonary Medical History: Reports: Hx COPD Denies: Hx Asthma, Hx Bronchitis, Hx Pneumonia Neurological Medical History: Denies: Hx Cerebrovascular Accident, Hx Seizures Endocrine Medical History: Denies: Hx Hyperthyroidism, Hx Hypothyroidism Renal/ Medical History: Denies: Hx Peritoneal Dialysis GI Medical History: Reports: Hx Gastroesophageal Reflux Disease. Denies: Hx Crohn's Disease, Hx Hepatitis, Hx Ulcerative Colitis Musculoskeletal Medical History: Denies Hx Arthritis Skin Medical History: Denies Hx Psoriasis Traumatic Medical History: Denies: Hx Traumatic Brain Injury Infectious Medical History: Denies: Hx Hepatitis Past Surgical History: Reports: Hx Gynecologic Surgery, Hx Tubal Ligation. Denies: Hx Hysterectomy - Immunizations Hx Diphtheria, Pertussis, Tetanus Vaccination: Yes Review of Systems - Review of Systems Constitutional: See HPI EENT: No symptoms reported Cardiovascular: No symptoms reported Respiratory: See HPI Gastrointestinal: No symptoms reported Genitourinary: No symptoms reported Female Genitourinary: No symptoms reported Musculoskeletal: No symptoms reported Skin: No symptoms reported Hematologic/Lymphatic: No symptoms reported Neurological/Psychological: No symptoms reported Physical Exam - Vital signs Vitals: Resp Pulse Ox 17 98 08/18/19 03:08 08/18/19 03:08 - Notes Notes: GENERAL: Alert, interacts well. No acute distress. Smiling, talkative, well- appearing HEAD: Normocephalic, atraumatic. EYES: Pupils equal, round, and reactive to light. Extraocular movements intact. ENT: Oral mucosa moist, tongue midline. Oropharynx unremarkable. Airway patent. Nares patent, no nasal septal hematoma, TM's intact. NECK: Full range of motion. Supple. Trachea midline. LUNGS: Clear to auscultation bilaterally, no wheezes, rales, or rhonchi. No respiratory distress. HEART: Regular rate and rhythm. No murmur ABDOMEN: Soft, non-tender. Non-distended. Bowel sounds present in all 4 quadrants. GENITOURINARY: Deferred EXTREMITIES: Moves all 4 extremities spontaneously. No edema, normal radial and dorsalis pedis pulses bilaterally. No cyanosis. BACK: no cervical, thoracic, lumbar midline tenderness. No saddle anesthesia, normal distal neurovascular exam. Moves all extremities in full range of motion. NEUROLOGICAL: Alert and oriented x3. Normal speech. Cranial nerves II through XII grossly intact. PSYCH: Normal affect, normal mood. SKIN: Warm, dry, normal turgor. No rashes or lesions noted. Course - Re-evaluation Re-evalutation: Patient is surprisingly well-appearing on exam. She is talkative, smiling, alert, has clear lungs, good skin coloration, soft abdomen, completely unremarkable physical exam. Vital signs unremarkable with no fever here. CBC unremarkable without leukocytosis or anemia, chemistry shows a very slight elevation in liver function tests, urinalysis shows slightly elevated specific gravity, lactic acid not elevated, troponin negative, chest x-ray unremarkable. There are a few white blood cells in the urine with more squamous epithelials, patient has no urinary symptoms. Culture was placed for urine and blood. Coronavirus is also pending. Influenza negative. I discussed with patient. She has been given IV fluids. She has no current complaints. He states she feels good and she was hoping to go home. Based on her normal vital signs, very unremarkable physical exam, reassuring work-up patient will be discharged with follow-up in 2 days with her primary care provider, she will be contacted for any positive cultures or tests otherwise, she is to return if she worsens in any way including any shortness of breath, chest pain, spiking fevers, vomiting, or any other current symptoms. Patient states understanding and agreement with this plan. Stable at time of discharge. - Vital Signs Vital signs: Temp Pulse Resp BP Pulse Ox 99.1 F 91 16 106/72 99 08/18/19 07:33 08/18/19 07:33 08/18/19 07:33 08/18/19 07:33 08/18/19 07:33 - Laboratory Result Diagrams: 08/18/19 04:35 08/18/19 04:35 Laboratory results interpreted by me: 08/18/19 08/18/19 08/18/19 04:09 04:09 04:35 RDW 15.3 H Lymph % (Auto) 10.0 L VBG pH 7.45 H Sodium Chloride Glucose AST ALT Alkaline Phosphatase Urine Urobilinogen 2.0 H Leukocyte Esterase Rfl TRACE H 08/18/19 04:35 RDW Lymph % (Auto) VBG pH Sodium 134.8 L Chloride 95 L Glucose 125 H AST 72 H ALT 44 H Alkaline Phosphatase 162 H Urine Urobilinogen Leukocyte Esterase Rfl Discharge - Discharge Clinical Impression: Cough, Weakness Fever Qualifiers: Fever type: unspecified Qualified Code(s): R50.9 - Fever, unspecified Condition: Stable Disposition: HOME, SELF-CARE Additional Instructions: Your work-up and evaluation are reassuring. The exact cause is uncertain, we do have a pending coronavirus test, blood cultures, and urine cultures. Rest, take Tylenol, drink plenty of fluids, and please follow-up with Dr. Cain on Tuesday for recheck. I recommend isolation precautions because he might have the coronavirus, we will contact you with the results. Return if you worsen in any way including difficulty breathing, chest pain, abdominal pain, vomiting, passing out, continued spiking fevers, or any other concerning or worsening symptoms. Referrals: LAYNE CAIN MD [Primary Care Provider] - 08/20/19
--- NOTE | 2019-08-18 04:42 | RADIOLOGY REPORT (SQ) ---
Chest one view on 08/18/2019 at 4:02 AM CLINICAL INDICATION: Shortness of breath, cough, fever COMPARISON: Chest x-ray from 09/26/[address] from 07/23/2019 FINDINGS: There is significant dextroscoliosis of the thoracic spine. Right IJ Port-A-Cath tip is in the SVC. Heart is within normal limits for size. Emphysematous changes of the lungs are noted. There is chronic atelectasis and/or scarring in the left lung base. Lungs are otherwise clear. Vascular calcification is noted in the aorta. IMPRESSION: No significant change in the appearance of the chest.
[2019-08-18 04:49] LABS: VENOUS BLOOD BASE EXCESS 3.5 mmol/L; VENOUS BLOOD HCO3 27.9 mmol/L (20-32); VENOUS BLOOD PCO2 41.5 mmHg (35-63); VENOUS BLOOD PH 7.45 (7.30-7.42)
[2019-08-18 04:53] LABS: APPEARANCE,URINE SLIGHTLY-CLOUDY; BILIRUBIN,URINE NEGATIVE (NEGATIVE); COLOR,URINE YELLOW; GLUCOSE, URINE NEGATIVE (NEGATIVE); KETONES,URINE NEGATIVE (NEGATIVE); PROTEIN,URINE NEGATIVE (NEGATIVE)
[2019-08-18 04:54] LABS: ABSOLUTE LYMPHOCYTES (AUTO) 0.6 10^3/uL (0.5-4.7); ABSOLUTE MONOCYTES (AUTO) 0.7 10^3/uL (0.1-1.4); ABSOLUTE NEUT (AUTO) 4.7 10^3/uL (1.7-8.2); BASOPHILS % (AUTO) 0.8 % (0-2); EOSINOPHILS % (AUTO) 0.1 % (0-6); HEMATOCRIT 37.7 % (36.0-47.0); HEMOGLOBIN 13.3 g/dL (12.0-15.5); MEAN CORPUSCULAR HEMOGLOBIN 30.9 pg (27.0-33.4); MEAN CORPUSCULAR HGB CONC 35.3 g/dL (32.0-36.0); MEAN CORPUSCULAR VOLUME 87 fl (80-97); MONOCYTES % (AUTO) 11.9 % (3-13); PLATELET COUNT 256 10^3/uL (150-450); RED BLOOD COUNT 4.31 10^6/uL (3.72-5.28); RED CELL DISTRIBUTION WIDTH 15.3 % (11.5-14.0); SEGMENTED NEUTROPHILS % (AUTO) 77.2 % (42-78); TOTAL CELLS COUNTED % (AUTO) 100 %
[2019-08-18 05:05] LABS: A TYPE INFLUENZA AG NEGATIVE (NEGATIVE); B INFLUENZA AG NEGATIVE (NEGATIVE)
[2019-08-18 05:13] LABS: ALBUMIN 4.6 g/dL (3.5-5.0); ALKALINE PHOSPHATASE 162 U/L (38-126); ANION GAP 14 (5-19); ASPARTATE AMINO TRANSFERASE 72 U/L (14-36); BILIRUBIN,TOTAL 0.7 mg/dL (0.2-1.3); BLOOD UREA NITROGEN 15 mg/dL (7-20); CALCIUM 9.7 mg/dL (8.4-10.2); CARBON DIOXIDE 26 mmol/L (22-30); CHLORIDE 95 mmol/L (98-107); GLUCOSE 125 mg/dL (75-110); POTASSIUM 4.3 mmol/L (3.6-5.0)
[2019-08-18] MEDS ORDERED: NORMAL SALINE 1000 ML 1,000 ML IV ONE (05:31)
[2019-08-18 07:35] VITALS: BP 106/72
--- NOTE | 2019-08-18 10:00 | EKG REPORT ---
SEVERITY:- BORDERLINE ECG - SINUS RHYTHM BORDERLINE T ABNORMALITIES, INFERIOR LEADS : Confirmed by: Jet Cedeno MD 18-Aug-2019 09:59:32
== END 2019-08-18 07:35 | disposition home or self-care (01) ==
LOC: ER 03:07
DX: R05 Cough (principal); R53.1 Weakness; R06.02 Shortness of breath; R50.9 Fever, unspecified; J44.9 Chronic obstructive pulmonary disease, unspecified; I10 Essential (primary) hypertension; Z98.51 Tubal ligation status; Z20.828 Contact with and (suspected) exposure to other viral communicable diseases
CPT/HCPCS: 93005; 99284; 96360; 36415; 87040; 83605; 85025; 87635; 80053; 81001; 84484; 82803; 87804; 71045; 93010; J7030

== ENCOUNTER 2019-10-17 20:29 | Emergency (ER) | payer OTHER, MEDICARE ==
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
[2019-10-17 23:34] VITALS: BP 116/87
[2019-10-17] MEDS ORDERED: KETOROLAC TROMETHAMINE 60 MG/2 ML SDV IM ONE (23:35)
== END 2019-10-17 23:47 | disposition home or self-care (01) ==
LOC: ER 20:29
DX: S16.1XXA Strain of muscle, fascia and tendon at neck level, initial encounter (principal); S39.012A Strain of muscle, fascia and tendon of lower back, initial encounter; V43.52XA Car driver injured in collision with other type car in traffic accident, initial encounter; M62.830 Muscle spasm of back; M62.838 Other muscle spasm; M85.88 Other specified disorders of bone density and structure, other site; I10 Essential (primary) hypertension; J44.9 Chronic obstructive pulmonary disease, unspecified; K21.9 Gastro-esophageal reflux disease without esophagitis; Z79.891 Long term (current) use of opiate analgesic; Z79.899 Other long term (current) drug therapy; Z87.891 Personal history of nicotine dependence
CPT/HCPCS: 99283; 96372; 72040; 72110; J1885

== ENCOUNTER → 2019-10-29 | Outpatient (CLI) | payer MEDICARE, OTHER ==
--- NOTE | 2019-10-29 10:10 | RADIOLOGY REPORT (SQ) ---
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 TECHNIQUE: CT scan performed of the chest without intravenous contrast. Images reviewed with lung, soft tissue and bone windows. Reconstructed coronal and sagittal MPR images reviewed. All images st ored on PACS. All CT scanners at this facility use dose modulation, iterative reconstruction, and/or weight based d osing when appropriate to reduce radiation dose to as low as reasonably achievable (ALARA). [facility]: Dose Right [facility]: CareDose [facility]: Dose Right [facility]: Teradose 4D [facility]: [employer] RADIATION DOSE: CT Rad equipment meets quality standard of care and radiation dose reduction techniq ues were employed. CTDIvol: 3.4 mGy. DLP: 136 mGy-cm. LIMITATIONS: No technical limitations. FINDINGS: LUNGS AND PLEURA: Unchanged moderate to severe upper lobe predominant centrilobular emphys laureano. The irregular areas of consolidation around the fiducial markers in the left lower lobe that ab ut the surfaces of the pleura and interlobar fissure have increased from 07/23/2019 as has the degree o f volume loss. There is no pleural effusion. LUNG NODULES: Stable 3 mm nodule in the right upper lobe (image a 34 of series 4), 4 mm nodule in th e right lower lobe (image 64 of series 4), perifissural nodules along the horizontal fissure (image 6 6 and 68 of series 4), and subpleural nodule in the right middle lobe (image 86 of series 4). There is a new spiculated nodular opacity in the perihilar aspect of the left upper lobe (image 61 of serie s 4) that measures 13 mm in short axis diameter. HILAR AND MEDIASTINAL STRUCTURES: Evaluation of the derek for adenopathy is limited due to the absence of intravenous contrast. There is no mediastinal adenopathy or mass. HEART AND VASCULAR STRUCTURES: Atherosclerotic calcification of the thoracic aorta. There is no card iomegaly, pericardial effusion or or thoracic aortic aneurysm. UPPER ABDOMEN: Unchanged mild nodular enlargement of the left adrenal gland. There is an accessory s plenule inferior to the spleen. THYROID AND OTHER SOFT TISSUES: No mass or adenopathy. BONES: Severe dextroconvex curvature of the thoracic spine. There is no fracture or osseous lesion. HARDWARE: None in the chest. OTHER: No other findings. IMPRESSION: 1. The irregular areas of consolidation around the fiducial markers in the left lower l obe that abut the surfaces of the pleura and interlobar fissure have increased from 07/23/2019 as has t he degree of volume loss. The findings could represent postradiation fibrosis and/or atelectasis. 2. New spiculated nodular opacity in the perihilar aspect of the left upper lobe (image 61 of series 4) that measures 13 mm in short axis diameter. Since the opacity is in the vicinity of the fiducial markers it is possible that it also represents post radiation fibrosis, however given its nodular ap pearance a follow-up CT in 3 months is recommended to ensure stability or resolution. TECHNICAL DOCUMENTATION: JOB ID: [id number] Quality ID # [id number]: Final reports with documentation of one or more dose reduction techniques (e.g., Au tomated exposure control, adjustment of the mA and/or kV according to patient size, use of iterative reconstruction technique) 2010 [employer]- All Rights Reserved Reading location - IP/workstation name: [email or web address]
== END ==
LOC: RAD 08:55
PROVIDERS: ATTEND Internal Medicine
DX: C34.32 Malignant neoplasm of lower lobe, left bronchus or lung (principal)
CPT/HCPCS: 71250

== ENCOUNTER → 2019-11-20 | Outpatient (CLI) | payer MEDICARE, OTHER ==
--- NOTE | 2019-11-20 14:19 | RADIOLOGY REPORT (SQ) ---
EXAM DESCRIPTION: PET CT SKULL/THIGH IMAGES COMPLETED DATE/TIME: 11/20/2019 11:50 am REASON FOR STUDY: LUNG CANCER C34.32 MALIGNANT NEOPLASM OF LOWER LOBE, LEFT BRONCHUS OR BURTON COMPARISON: 01/15/2019 RADIONUCLIDE AND DOSE: 10.1 mCi F18 FDG The route of agent administration: Intravenous FASTING BLOOD SUGAR: 91 mg/dl CONTRAST TYPE AND DOSE: No CT contrast given. TECHNIQUE: Blood glucose level was verified. Above dose of FDG was injected intravenously. 2-D seg mented attenuation correction images were obtained from the base of the skull to the midthighs. Nonc ontrast CT images were obtained for attenuation correction and fusion with emission images. CT image s were performed without oral or intravenous contrast and are not sensitive for parenchymal lesions. A series of overlapping emission PET images were obtained. Images reviewed and manipulated at [facility] work station by the radiologist. Images stored on PACS. LIMITATIONS: None. FINDINGS: HEAD AND NECK: Symmetric uptake in the tonsillar pillars. Likely artifact. No areas of s ignificant abnormal metabolic activity in the soft tissues of the head and neck. CHEST: No areas of abnormal metabolic activity in the chest. ABDOMEN AND PELVIS: No areas of abnormal metabolic activity in the abdomen or pelvis. Expected physi ologic activity is present in the genitourinary system and bowel. PROXIMAL LOWER EXTREMITIES: No areas of abnormal metabolic activity in the soft tissues of the lower extremities. BONES: No abnormal metabolic activity in the visualized skeleton. ADDITIONAL CT FINDINGS: Right-sided port. Rind of non hypermetabolic tissue adjacent to radiotherapy markers in the left lower lobe. OTHER: No other significant findings. IMPRESSION: No evidence of local recurrence or metastatic disease. TECHNICAL DOCUMENTATION: JOB ID: [id number] 2010 [employer]- All Rights Reserved Reading location - IP/workstation name: [email or web address]
== END ==
LOC: RAD 08:17
PROVIDERS: ATTEND Internal Medicine
DX: C34.32 Malignant neoplasm of lower lobe, left bronchus or lung (principal)
CPT/HCPCS: 78815; A9552

== ENCOUNTER → 2020-01-25 | Outpatient (CLI) | payer MEDICARE, OTHER ==
--- NOTE | 2020-01-25 18:50 | WOMENS IMAGING REPORT ---
EXAM DESCRIPTION: U/S ABDOMEN LIMITED IMAGES COMPLETED DATE/TIME: 01/25/2020 10:59 am REASON FOR STUDY: R10.11 RIGHT UPPER QUADRANT PAIN R10.11 RIGHT UPPER QUADRANT PAIN COMPARISON: None. TECHNIQUE: Dynamic and static grayscale images acquired of the abdomen and recorded on PACS. Additio nal selected color Doppler and spectral images recorded. LIMITATIONS: None. FINDINGS: PANCREAS: No masses. Visualized pancreatic duct normal caliber. LIVER: No masses. Echotexture normal. LIVER VASCULATURE: Normal directional flow of the main portal vein and hepatic veins. GALLBLADDER: No stones. Normal wall thickness. No pericholecystic fluid. ULTRASOUND-DETECTED REID'S SIGN: Negative. INTRAHEPATIC DUCTS AND COMMON DUCT: CBD and intrahepatic ducts normal caliber. No filling defects. INFERIOR VENA CAVA: Normal flow. AORTA: No aneurysm. RIGHT KIDNEY: Normal size. Normal echogenicity. No solid or suspicious masses. No hydronephrosis. No calcifications. PERITONEAL AND RIGHT PLEURAL SPACE: No ascites or effusions. OTHER: No other significant findings. IMPRESSION: NORMAL RIGHT UPPER QUADRANT ULTRASOUND. TECHNICAL DOCUMENTATION: JOB ID: [id number] [email or web address]- All Rights Reserved Reading location - IP/workstation name: [email or web address]
== END ==
LOC: WI 08:16
PROVIDERS: ATTEND Internal Medicine Gastroenterology
DX: R10.11 Right upper quadrant pain (principal)
CPT/HCPCS: 76705

== ENCOUNTER → 2020-02-25 | Outpatient (CLI) | payer MEDICARE, OTHER ==
--- NOTE | 2020-02-25 09:48 | RADIOLOGY REPORT (SQ) ---
EXAM DESCRIPTION: CT CHEST WITHOUT IMAGES COMPLETED DATE/TIME: 02/25/2020 9:00 am REASON FOR STUDY: LUNG CA C34.32 MALIGNANT NEOPLASM OF LOWER LOBE, LEFT BRONCHUS OR BURTON COMPARISON: 10/29/2019 CT, 11/20/2019 PET-CT TECHNIQUE: CT scan performed of the chest without intravenous contrast. Images reviewed with lung, soft tissue and bone windows. Reconstructed coronal and sagittal MPR images reviewed. All images st ored on PACS. All CT scanners at this facility use dose modulation, iterative reconstruction, and/or weight based d osing when appropriate to reduce radiation dose to as low as reasonably achievable (ALARA). [facility]: Dose Right [facility]: CareDose [facility]: Dose Right [facility]: Teradose 4D [facility]: [employer] RADIATION DOSE: CT Rad equipment meets quality standard of care and radiation dose reduction techniq ues were employed. CTDIvol: 3.7 mGy. DLP: 143 mGy-cm. mGy. LIMITATIONS: No technical limitations. FINDINGS: LUNGS AND PLEURA: Interval increase in consolidation and ground-glass attenuation within the left lower lobe about the d fiducial markers. Evaluation for discrete nodule is limited. Additi onally, increased consolidation about the left perihilar region. Previously described spiculated nod ule measuring 13 mm is not clearly delineated secondary to perihilar soft tissue. Increased evidence of left basilar volume loss. Right lower lobe 4 mm nodule is stable (series 4, image 63) no new dis crete nodules or masses. Emphysematous change with panacinar emphysema. No significant pleural effu chuy. No pneumothorax. HILAR AND MEDIASTINAL STRUCTURES: Increased left perihilar consolidation compared to prior exam. Pro minent AP window node measuring 11 mm in short axis (series 2, image 25), stable. Shotty additional nodes without discrete mediastinal adenopathy. Window HEART AND VASCULAR STRUCTURES: Normal heart size. No pericardial effusion. No significant calcified coronary atherosclerosis. UPPER ABDOMEN: No acute finding. THYROID AND OTHER SOFT TISSUES: No masses. No adenopathy. BONES: No acute bony abnormality. No discrete lytic or blastic osseous lesions. Thoracolumbar curva ture. HARDWARE: Right external jugular based port with catheter tip at cavoatrial junction. OTHER: No other significant findings. IMPRESSION: 1. Left lower lobe fiducial markers with further increase in irregular consolidation at the previously treated treatment site. No discrete lesion identified although evaluation limited se condary. Additional mild further increase in the left perihilar consolidation. Findings may be with treatment related although residual disease is not excluded. Continued surveillance or PET-CT could be considered for further characterization. 2. No other new discrete nodules or masses. 3. No evidence of acute intrathoracic process. TECHNICAL DOCUMENTATION: JOB ID: [id number] Quality ID # 436: Final reports with documentation of one or more dose reduction techniques (e.g., Au tomated exposure control, adjustment of the mA and/or kV according to patient size, use of iterative reconstruction technique) 2010 [employer]- All Rights Reserved Reading location - IP/workstation name: [email or web address]
== END ==
LOC: RAD 09:52
PROVIDERS: ATTEND Physician Assistant Medical
DX: C34.32 Malignant neoplasm of lower lobe, left bronchus or lung (principal)
CPT/HCPCS: 71250

== ENCOUNTER → 2020-04-02 | Outpatient (CLI) | payer MEDICARE, OTHER ==
--- NOTE | 2020-04-02 13:41 | WOMENS IMAGING REPORT ---
EXAM DESCRIPTION: BILAT SCREENING MAMMO W/CAD IMAGES COMPLETED DATE/TIME: 04/02/2020 11:29 am REASON FOR STUDY: ROUTINE SCREENING MAMMOGRAM Z12.31 Z12.31 ENCNTR SCREEN MAMMOGRAM FOR MALIGNANT N EOPLASM OF [place] COMPARISON: 03/30/2019 and 08/09/2017. EXAM PARAMETERS: Standard craniocaudal and mediolateral oblique views of each breast recorded using digital acquisition. Read with the assistance of CAD. .[facility] - [employer] Translator Interpreter Version 9.2 LIMITATIONS: None. FINDINGS: No suspicious masses, suspicious calcifications or architectural distortion. No areas of c oncern. IMPRESSION: NEGATIVE MAMMOGRAM. BIRADS 1 BREAST DENSITY: b. There are scattered areas of fibroglandular density. BIRAD: ASSESSMENT: 1 NEGATIVE RECOMMENDATION: ROUTINE SCREENING COMMENT: The patient has been notified of the results by letter per MQSA requirements. Additional no tification policies are in place for contacting patient with suspicious or incomplete findings. Quality ID #225: The [employer] recommends an annual screening mammogram for women aged 40 years or over. This facility utilizes a reminder system to ensure that all patients receive reminder letters, and/or direct phone calls for appointments. This includes reminders for routine scr eening mammograms, diagnostic mammograms, or other Breast Imaging Interventions when appropriate. Th is patient will be placed in the appropriate reminder system. TECHNICAL DOCUMENTATION: FINDING NUMBER: (1) ASSESSMENT: (1) JOB ID: [id number] 2010 [email or web address]- All Rights Reserved Reading location - IP/workstation name: [email or web address]
== END ==
LOC: WI 11:17
PROVIDERS: ATTEND Physician Assistant
DX: Z12.31 Encounter for screening mammogram for malignant neoplasm of breast (principal)
CPT/HCPCS: 77067

== ENCOUNTER → 2020-06-03 | Outpatient (CLI) | payer MEDICARE, OTHER ==
--- NOTE | 2020-06-03 12:27 | RADIOLOGY REPORT (SQ) ---
EXAM DESCRIPTION: CT CHEST WITHOUT IMAGES COMPLETED DATE/TIME: 06/03/2020 9:28 am REASON FOR STUDY: (C34.32)MALIGNANT NEOPLASM OF LOWER LOBE, LEFT BRONCHUS OR LUNG C34.32 MALIGNANT NEOPLASM OF LOWER LOBE, LEFT BRONCHUS OR BURTON COMPARISON: 02/25/2020 TECHNIQUE: CT scan performed of the chest without intravenous contrast. Images reviewed with lung, soft tissue and bone windows. Reconstructed coronal and sagittal MPR images reviewed. All images st ored on PACS. All CT scanners at this facility use dose modulation, iterative reconstruction, and/or weight based d osing when appropriate to reduce radiation dose to as low as reasonably achievable (ALARA). [facility]: Dose Right [facility]: CareDose [facility]: Dose Right [facility]: Teradose 4D [facility]: [employer] RADIATION DOSE: CT Rad equipment meets quality standard of care and radiation dose reduction techniq ues were employed. CTDIvol: 3.0 mGy. DLP: 119 mGy-cm. mGy. LIMITATIONS: No technical limitations. FINDINGS: LUNGS AND PLEURA: Left lower lobe consolidation with fiducial markers and left perihilar c onsolidation each appear slightly diminished in volume on today's examination. No acute findings. S table right lower lobe pulmonary nodule and right minor fissure lymph nodes. Background of emphysema tous changes. HILAR AND MEDIASTINAL STRUCTURES: Stable appearance of AP window lymph nodes measuring up to 10 mm in the short axis. Ectatic appearing ascending aorta. HEART AND VASCULAR STRUCTURES: Normal heart size. No pericardial effusion. UPPER ABDOMEN: No significant findings. Limited exam. THYROID AND OTHER SOFT TISSUES: No masses. No adenopathy. BONES: No acute findings. Dextroconvex scoliotic curvature with asymmetry of the chest wall. No jaden picious lytic or blastic osseous lesions. HARDWARE: Port-A-Cath terminates within the superior vena cava. OTHER: No other significant findings. IMPRESSION: Slightly diminished volume of left lower lobe and left perihilar consolidation with left lower lobe fiducial markers. No acute findings. No evidence of adverse trend. TECHNICAL DOCUMENTATION: JOB ID: [id number] Quality ID # 436: Final reports with documentation of one or more dose reduction techniques (e.g., Au tomated exposure control, adjustment of the mA and/or kV according to patient size, use of iterative reconstruction technique) 2010 [employer]- All Rights Reserved Reading location - IP/workstation name: [email or web address]
== END ==
LOC: RAD 09:12
PROVIDERS: ATTEND Internal Medicine
DX: C34.32 Malignant neoplasm of lower lobe, left bronchus or lung (principal)
CPT/HCPCS: 71250